=== PATIENT | male | born 1960 | race Caucasian/White ===

== ENCOUNTER → 2023-10-20 07:44 | Outpatient (REF) | payer OTHER, SELFPAY | LOC: RAD 07:44 | PROVIDERS: ATTENDING PHYSICIAN Internal Medicine | DX: R09.89 Other specified symptoms and signs involving the circulatory and respiratory systems (principal) | CPT/HCPCS: 93922; 93925 ==

== ENCOUNTER → 2023-10-22 10:05 | Outpatient (REF) | payer OTHER, SELFPAY ==
[2023-10-22 11:02] LABS: Blood Urea Nitrogen 14 mg/dl (9-20); Calcium 9.8 mg/dl (8.4-10.2); Carbon Dioxide 27 mmol/L (22-30); Chloride 101 mmol/L (98-107); Glucose 98 mg/dl (70-99); Sodium 137 mmol/L (135-145); eGFR > 60.00
[2023-10-22 11:09] LABS: Potassium 4.6 mmol/L (3.5-5.1)
== END ==
LOC: REG 10:05
PROVIDERS: ATTENDING PHYSICIAN Surgery Vascular Surgery; FAMILY PHYSICIAN Internal Medicine
DX: I73.9 Peripheral vascular disease, unspecified (principal)
CPT/HCPCS: 36415; 80048

== ENCOUNTER → 2023-10-26 14:30 | Outpatient (REF) | payer OTHER, SELFPAY | LOC: RAD 14:30 | PROVIDERS: ATTENDING PHYSICIAN Surgery Vascular Surgery; FAMILY PHYSICIAN Internal Medicine | DX: I73.9 Peripheral vascular disease, unspecified (principal) | CPT/HCPCS: 75635; Q9967 ==

== ENCOUNTER 2023-12-30 06:06 | Inpatient (IN) | payer OTHER, SELFPAY ==
--- NOTE | 2023-12-22 12:25 | PTCARENOTE ---
[place] in Dr. Velázquez's office made aware of pt's daily alcohol consumption of 6 beers.
[2023-12-27 09:18] VITALS: BMI 23.7
[2023-12-27 09:54] LABS: % Basophils 0.6 % (0-2); % Eosinophils 3.1 % (0-6); % Immature Granulocytes 0.3 % (0-0.5); % Lymphocytes 25.4 % (20.5-51.1); % Monocytes 5.4 % (1.7-9.3); % Neutrophils 65.2 % (42.2-75.2); Absolute Basophils 0.1 10^3/uL (0-0.2); Absolute Eosinophils 0.3 10^3/uL (0-0.7); Absolute Lymphocytes 2.3 10^3/uL (1.2-3.4); Absolute Monocytes 0.5 10^3/uL (0.1-0.6); Absolute Neutrophils 5.8 10^3/uL (1.4-6.5); Hematocrit 41.6 % (39.0-52.0); Hemoglobin 14.5 g/dL (13.0-18.0); Mean Corp Hgb Conc. 34.9 g/dL (33.0-37.0); Mean Corpuscular Hgb 31.7 pg (27.0-31.0); Mean Corpuscular Volume 90.8 fL (80.0-94.0); Mean Platelet Volume 9.9 fL (7.4-10.4); Nucleated Red Blood Cells % 0 % (-); Platelet Count 328 10^3/uL (130-400); Red Blood Cell Count 4.58 10^6/uL (4.70-6.10); Red Cell Dist. Width 13.5 % (11.5-14.5); White Blood Cell Count 8.9 10^3/uL (4.8-10.8)
[2023-12-27 09:58] LABS: INR 0.89; PT 11.9 Sec (11.4-14.6)
[2023-12-27 09:59] LABS: APTT 31.5 Sec (23.4-35.0)
[2023-12-27 10:44] LABS: Blood Urea Nitrogen 15 mg/dl (9-20); Calcium 9.9 mg/dl (8.4-10.2); Carbon Dioxide 25 mmol/L (22-30); Chloride 103 mmol/L (98-107); Estimated Creatinine Clearance 76 ml/min; Glucose 96 mg/dl (70-99); Potassium 4.6 mmol/L (3.5-5.1); Sodium 137 mmol/L (135-145); eGFR > 60.00
[2023-12-30] VITALS (20 sets, daily range): BP systolic 97–175; BP diastolic 69–123; BMI 24.6
--- NOTE | 2023-12-30 07:01 | PTCARENOTE ---
Dr Soto at pt bedside speaking to pt.
--- NOTE | 2023-12-30 07:02 | W.SUR.PREOP ---
Pre-Operative Surgical Note
-
I have examined this patient prior to the performance of the scheduled procedure.
The patient's condition is unchanged from the time of the current History and
Physical and the patient is able to undergo the scheduled procedure.
[2023-12-30] MEDS: PERIDEX 0.12% ORAL RINSE 15 ML PO (07:15)
[2023-12-30] MEDS: BACTROBAN NASAL 1 GRAM NASAL (07:15)
[2023-12-30 11:09] LABS: ACT-LR - POC 252 Seconds (116-155)
[2023-12-30 12:13] LABS: ACT-LR - POC 192 Seconds (116-155)
[2023-12-30 12:21] LABS: ACT-LR - POC 253 Seconds (116-155)
[2023-12-30 13:13] LABS: ACT-LR - POC 215 Seconds (116-155)
[2023-12-30 14:06] LABS: B.E. - POC -5.6 mmol/L; Glucose - POC 184 mg/dl (65-99); HCO3 - POC 21 mmol/L (21-29); Hematocrit - POC 33 % PCV (42-52); Hemodilution- POC Yes; Hemoglobin Calculated - POC 11.1; Ionized Calcium - POC 1.02 mmol/L (1.12-1.27); Lactate - POC 2.13 mmol/L (0.36-0.75); O2 Saturation %Calculated-POC 99.8 5 (92-96); PCO2 - POC 43 mmHg (35-45); PO2 - POC 243 mmHg (80-100); Potassium - POC 4.9 mmol/L (3.6-5.0); Sodium - POC 135 mmol/L (135-145); pH - POC 7.29 (7.35-7.45)
--- NOTE | 2023-12-30 14:33 | W.SUR.POST ---
Surgical Immediate Post Op
Note
Pre Op Diagnosis: PAD
Post Op Diagnosis: PAD
Procedure Performed: Open Aorto-bifemoral bypass, right femoral endarterectomy with bovine pericardial patch angioplasty
Primary Surgeon: Eber
Secondary Surgeons: Cortez PGY 1
Anesthesia: General
Estimated Blood Loss: 800cc
Fluids: see anesthesia flowsheet
Drains/Shunts: none
Specimens/Cultures: right femoral plaque
Doppler/Duplex/Angio (Y/N): Y
Complications: none
Operative Findings:
[2023-12-30 16:14] LABS: Hematocrit 29.6 % (39.0-52.0); Hemoglobin 10.4 g/dL (13.0-18.0); Mean Corp Hgb Conc. 35.1 g/dL (33.0-37.0); Mean Corpuscular Hgb 32.1 pg (27.0-31.0); Mean Corpuscular Volume 91.4 fL (80.0-94.0); Mean Platelet Volume 9.9 fL (7.4-10.4); Platelet Count 255 10^3/uL (130-400); Red Blood Cell Count 3.24 10^6/uL (4.70-6.10); Red Cell Dist. Width 13.6 % (11.5-14.5); White Blood Cell Count 23.6 10^3/uL (4.8-10.8)
[2023-12-30] MEDS: DILAUDID PCA 30 IV (16:15)
[2023-12-30] MEDS: NSS 1000 IV (16:15)
[2023-12-30 16:27] LABS: APTT 26.5 Sec (23.4-35.0); INR 1.08
[2023-12-30 16:28] LABS: Blood Urea Nitrogen 12 mg/dl (9-20); Carbon Dioxide 17 mmol/L (22-30); Chloride 108 mmol/L (98-107); Estimated Creatinine Clearance 73 ml/min; Glucose 193 mg/dl (70-99); Potassium 4.6 mmol/L (3.5-5.1); Sodium 133 mmol/L (135-145); eGFR > 60.00
[2023-12-30] MEDS: ATIVAN 1 MG IV (16:46)
[2023-12-30] MEDS: NSS 500 IV (16:50)
[2023-12-30 18:02] LABS: Glucose - Point of Care 211 mg/dl (70-99)
--- NOTE | 2023-12-30 18:24 | W.IMMPOSTOP ---
Documented by User: Dmitri Toro MD, Resident 12/30/23 20:06
Surgical Immed Post Op Note
-
Primary Surgeon: Dr. Mic Velázquez MD
Assisting Surgeon: Dr. Dmitri Toro MD, PhD (PGY-1)
Pre-op Diagnosis: occlusive peripheral arterial disease of infrarenal abdominal aorta and iliac arteries
Post-op Diagnosis: occlusive peripheral arterial disease of infrarenal abdominal aorta and iliac arteries
Procedure Performed: Aortobifemoral bypass and right femoral endarterectomy
Anesthesia Type: General
Specimen / Cultures: None
Estimated Blood Loss: 200cc
Complications: None
Operative Findings: The patient was brought to the OR and placed in the supine position. After induction of anesthesia, the patient was prepped and draped in usual sterile fashion. The abdomen was entered and the aorto-iliac bifurcation exposed.
Vessel loops were passed around the abdominal aorta and each of the common iliac arteries. Then incisions were made bilaterally in the groins. Electrocautery and sharp dissection were used to expose the common femoral arteries, profunda femoris
arteries, and SFAs bilaterally. Vessel loops were used to gain proximal and distal control of these vessels. Then we returned to the abdomen and made a transverse incision on the abdominal aorta. The distal stump was oversewn with multiple silk
sutures. Proximally, we performed an end-to-end anastomosis with dacron graft. We then returned to the groins. On the right side, arteriotomy was made in the right common femoral artery to the profunda femoris artery. The vessel was
endarterectomized with a freer. A bovine pericardial patch was brought to the field and a running 7-0 prolene suture was used for arterioplasty. A subcutaneous tissue tunnel was made from the right groin to the retroperitoneum. The distal end of the
aorto-bifemoral graft was passed through the tunnel and into the right groin. The same was performed on the left side. Once the graft ends were situated in each groin, we then performed the distal anastomosis. Starting on the right side, we made an
incision on the patch and beveled the graft. The end-to-side anastomosis was performed using a running 5-0 prolene suture. We then turned our attention to the left groin, where we made an arteriotomy on the left common femoral artery and profunda
femoris artery, beveled the dacron graft, and performed an end-to-side anastomosis. At the completion of this anastomosis, doppler was performed and there were dopplerable signals in the profunda femoris arteries bilaterally distal to the sites of
anastomosis. The abdominal fascia was closed with running suture and tabatha at the skin. Each groin was closed with running suture layers and skin glue. At the conclusion of the case, the patient was transported to the PACU in stable condition.

Documented by User: Mic Velázquez MD 12/31/23 08:43
Surgical Immed Post Op Note
-
Primary Surgeon: Dr. Mic Velázquez MD
Assisting Surgeon: Dr. Dmitri Toro MD, PhD (PGY-1)
Pre-op Diagnosis: occlusive peripheral arterial disease of infrarenal abdominal aorta and iliac arteries
Post-op Diagnosis: occlusive peripheral arterial disease of infrarenal abdominal aorta and iliac arteries
Procedure Performed: Aortobifemoral bypass and right femoral endarterectomy
Anesthesia Type: General
Specimen / Cultures: None
Estimated Blood Loss: 200cc
Complications: None
Operative Findings: The patient was brought to the OR and placed in the supine position. After induction of anesthesia, the patient was prepped and draped in usual sterile fashion. Bilateral groin incision were made initially and sharp dissection
were used to expose the common femoral arteries, profunda femoris arteries, and SFAs bilaterally. Vessel loops were used to gain proximal and distal control of these vess The abdomen was entered and the aorto-iliac bifurcation exposed. Umbilical
tape was passed around the abdominal aorta. The distal stump was oversewn with multiple silk sutures. Proximally, we performed an end-to-end anastomosis with dacron graft. We then returned to the groins. On the right side, arteriotomy was made in
the right common femoral artery to the profunda femoris artery. The vessel was endarterectomized with a freer. A bovine pericardial patch was brought to the field and a running 6-0 prolene suture was used for arterioplasty. A subcutaneous tissue
tunnel was made from the right groin to the retroperitoneum. The distal end of the aorto-bifemoral graft was passed through the tunnel and into the right groin. The same was performed on the left side. Once the graft ends were situated in each
groin, we then performed the distal anastomosis. Starting on the right side, we made an incision on the patch and beveled the graft. The end-to-side anastomosis was performed using a running 5-0 prolene suture. We then turned our attention to the
left groin, where we made an arteriotomy on the left common femoral artery and profunda femoris artery, beveled the dacron graft, and performed an end-to-side anastomosis. At the completion of this anastomosis, doppler was performed and there were
dopplerable signals in the profunda femoris arteries bilaterally distal to the sites of anastomosis. The abdominal fascia was closed with running suture and tabatha at the skin. Each groin was closed with running suture layers and skin glue. At the
conclusion of the case, the patient was transported to the PACU in stable condition.
--- NOTE | 2023-12-30 18:58 | PTCARENOTE ---
Received pt from PACU @ 1735 into rm [id number]. Drowsy, awakens to verbal stimuli. Oriented to self/situation; required reorientation to time. C/O leg cramps, reports improving. Neurovascular checks completed on b/l LE- see flow sheet; pt w baseline
neuropathy in hands/feet. +L DP/PT; +R DP, weak PT. SR/ST on monitor. SpO2 98% on 4LNC. +BS; NPO; L nare NGT to LIS w small amt brown output. Lee in place w clear/yellow urine. B/L groin aquacell dressing c/d/i. Midline ABD incision w scant
drainage. L rad A-line transduced, monitored, and calibrated; all ports patent and secured; correlates w cuff pressures. Dilaudid RN UROLOGY in place via L arm PIV- see flow sheet. Family @ bedside updated. Instructed on how to report care concerns,
call hernández in reach.
--- NOTE | 2023-12-30 20:00 | PTCARENOTE ---
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 SR HR 90s. Sat 98% on 4LNC. L NGT to LIWS, minimal drainage. Lee catheter draining adequate amt yellow urine. 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 L rad AL WNL.
call hernández with pt, bed alarm on.
[2023-12-30] MEDS: OFIRMEV 100 IV (20:29)
[2023-12-30] MEDS: HEPARIN 5000 UNITS SC (20:29)
[2023-12-30] MEDS: THIAMINE INJECTION 200 MG IV (20:30)
[2023-12-30] MEDS: VANCOCIN 200 IV (20:30)
[2023-12-30 21:09] LABS: Lactic Acid 0.8 mmol/L (0.7-2.0)
[2023-12-30 23:31] LABS: Glucose - Point of Care 193 mg/dl (70-99)
[2023-12-31] VITALS (15 sets, daily range): BP systolic 128–169; BP diastolic 71–105; BMI 26.0
[2023-12-31] MEDS: NSS 1000 IV ×3 (02:12→19:59)
[2023-12-31] MEDS: HEPARIN 5000 UNITS SC ×3 (02:12→15:44)
[2023-12-31] MEDS: OFIRMEV 100 IV ×3 (02:12→15:44)
--- NOTE | 2023-12-31 03:00 | PTCARENOTE ---
no changes in pt assessment.
[2023-12-31 05:38] LABS: Hematocrit 25.7 % (39.0-52.0); Hemoglobin 9.2 g/dL (13.0-18.0); Mean Corp Hgb Conc. 35.8 g/dL (33.0-37.0); Mean Corpuscular Hgb 32.5 pg (27.0-31.0); Mean Corpuscular Volume 90.8 fL (80.0-94.0); Mean Platelet Volume 9.7 fL (7.4-10.4); Platelet Count 216 10^3/uL (130-400); Red Blood Cell Count 2.83 10^6/uL (4.70-6.10); Red Cell Dist. Width 13.6 % (11.5-14.5)
[2023-12-31 05:50] LABS: APTT 30.6 Sec (23.4-35.0); INR 1.01; PT 13.3 Sec (11.4-14.6)
[2023-12-31 06:01] LABS: Blood Urea Nitrogen 12 mg/dl (9-20); Calcium 7.5 mg/dl (8.4-10.2); Carbon Dioxide 23 mmol/L (22-30); Chloride 110 mmol/L (98-107); Estimated Creatinine Clearance 73 ml/min; Glucose 133 mg/dl (70-99); Potassium 4.6 mmol/L (3.5-5.1); Sodium 135 mmol/L (135-145); eGFR > 60.00
[2023-12-31 06:17] LABS: Glucose - Point of Care 147 mg/dl (70-99)
--- NOTE | 2023-12-31 08:00 | PTCARENOTE ---
0700 patient in bed. left radial A/line. Indwelling Lee draining clear yellow urine. B/L Groin and midline abdominal incision intact and dry. Pulses present via doppler
[2023-12-31] MEDS: THIAMINE INJECTION 200 MG IV ×2 (08:05→19:25)
[2023-12-31] MEDS: PROTONIX IV 40 MG IV (08:06)
[2023-12-31] MEDS: NSS (PRESERVATIVE FREE) 10 ML IV (08:06)
--- NOTE | 2023-12-31 08:41 | OR.RPT ---
Operative Report
Operative Report
PROCEDURE DATE: 12/30/2023
Preoperative diagnosis: Chronic limb threatening ischemia with severe multilevel peripheral arterial disease bilateral (left greater than right) lower extremities.
Postoperative diagnosis: Same
Procedure:
1. Aortobifemoral artery bypass with 16 mm x 8 mm bifurcated Hemashield Dacron graft.
2. Extensive right femoral endarterectomy (distal common femoral artery, long segment profunda femoris artery) with bovine pericardial patch angioplasty/profundoplasty.
Surgeon: Eber
Acupuncturist: Dmitri Toro, PGY 2
Complications: None
Anesthesia: General
Indications for procedure:
Severe peripheral arterial disease, multilevel including aorta/iliac artery occlusive disease. Brought for inflow procedure with aortobifemoral artery bypass. Risk/benefits/alternatives all extensively discussed. Patient understood all wish to
proceed.
Description of procedure:
Patient was identified brought to the operating room placed on the table in supine position. After the adequate administration of anesthesia he was prepped and draped in the standard surgical fashion. A standard preoperative timeout was undertaken
and everybody was in agreement the plan. A standard longitudinal incision was made in the right groin that was carried through the skin subcutaneous tissue. The common femoral artery was identified as it emerged from underneath the inguinal
ligament. It was noted to be significantly calcified and hardened. I dissected to the femoral bifurcation carefully dissecting away from surrounding structures and great care to avoid any injury to the structures. The proximal superficial femoral
artery couple centimeters beyond its origin was circumferentially dissected and a vessel loop passed around it. It was noted to be chronically heavily calcified. The profunda femoris artery origin was identified. I then continued dissection on
the profunda as there was a moderate amount of atherosclerotic plaque correlating to CT scan findings. I had to dissect the profunda and branches down to the level about 7 to 8 cm beyond the origin of the profunda. There I was able to identify
soft spot and carefully circumferentially dissected and confirmed the vessel was soft against my right ankle clamp. Of note any crossing veins were ligated between silk ties and clips and divided. All branches were also controlled with Vesseloops
as well. I then dissected underneath the inguinal ligament proximally and initiated a retroperitoneal tunnel from this groin incision. Of note I did not identify any circumflex iliac vein or vein of sorrow.
Similar incision was made in the left groin that was carried through skin subcutaneous tissue. Similar dissection was undertaken identifying the common femoral artery as it emerged from underneath inguinal ligament. I dissected to the bifurcation
of the femoral vessels. As noted on the other side there was heavily calcified arteries. There was a soft spot at the distal common femoral artery that I felt would be safe for clamping. The profunda femoris artery was soft a few centimeters
beyond the origin (about 2 cm). This was at the first branch point. Both branches were controlled with Vesseloops carefully. Any crossing veins were ligated between silk ties and divided to allow better exposure of the profunda here. Similarly I
dissected underneath the inguinal ligament to initiate a retroperitoneal tunnel. Again as with the other side I did not identify the circumflex iliac vein or vein of sorrow.
At this point I made a standard midline laparotomy abdominal incision. This was carried through skin subcutaneous tissue down to the level of the midline fascia. The fascia was incised. I then grasped the peritoneum and sharply incised it with a
Metzenbaum scissor. I carefully entered the peritoneal cavity. The entirety of the midline fascia and peritoneum was then safely opened. Care was taken to ensure no bowel swept up against the abdominal wall. There were no adhesions noted. Upon
entry into the abdomen I noted that there was 1 small small bowel apparent electrocautery serosal possible injury. I could not tell for sure. There was no full-thickness injury was just the serosa superficially. To be safe silk suture was used to
imbricate the serosa on either side using 3 interrupted silk sutures. (Note I did consult one of my general surgery colleagues who came to the operating room, and confirmed the plan of action). A [place] retractor was then placed and the duodenum
was sharply mobilized off of the retroperitoneum. Notes the course of the duodenum because it to sweep over the aorta to the left of midline and then back around. Therefore retracting the bowel proved to be somewhat difficult as a result. Once I
did mobilize the duodenum I then exchanged out for an Omni retractor system. I placed this in place. I then began dissecting the retroperitoneum overlying the aorta directly. The aorta is noted to be severely calcified and hardened. But
proximally I dissected to the level of the renal vein. Around that level the aorta was soft and clamp level with a good pulsation. I identified the renal vein as well as the left accessory renal artery which was the lowest of the renal arteries
noted. Therefore I carefully circumferentially dissected the aorta here and passed an umbilical tape around it. Just distal to the site I circumferentially dissected and there was a lumbar artery I could see easily. Care was taken to avoid any
injury to this. Next I dissected more distally on the aorta to the aortic bifurcation. Of note the ALEJANDRA was identified and carefully circumferentially dissected and a vessel loop passed around it to allow gentle retraction. The aorta in the
vicinity of the ALEJANDRA was severely hard and calcified. At this point I bluntly extended my retroperitoneal tunnel from the abdominal site and connected it to the groin incisions and passed the aortic clamp along the tunnel and passed an umbilical
tape through first on the right side than on the left side. As such now I completed my aortic tunneling. I circumferentially dissected the aorta distally just proximal to the bifurcation to allow clamp placement here, and I had also dissected the
aorta more proximally to allow clamp placement proximal to the ALEJANDRA also if needed. I then gave the patient 6000 units of intravenous heparin. While heparin was circulating I assessed my ability to clamp the aorta. My initial hope was to place a
side-biting clamp on the aorta so as to perform an end to side anastomosis to maintain antegrade flow into the ALEJANDRA (I had some concern that the patient had SMA stenosis based on CT scan imaging preoperatively and I was concerned about ligating the
ALEJANDRA). Placing a side-biting clamp was not ideal due to the severe calcification and hardness of the aorta in the mid infrarenal aorta. Did not allow me a lot of room for a side-biting clamp. In addition the side-biting clamp was not completely
occluding the vessel proximally and therefore I would have to place an additional proximal clamp. Based on all this I felt that I would need to instead do an end to side anastomosis especially based on the severe calcific plaque more distally in
the aorta. Therefore I placed a Derra type clamp on the proximal infrarenal aorta. Distally I clamped just proximal to the ALEJANDRA. I then transected the aorta. I cut out a small/short segment of the aorta. My clamp distally was not hemostatic
unfortunately. Therefore I clamped more distal to the ALEJANDRA where I had created a zone. I also then double looped and tightened my Vesseloops on the ALEJANDRA. This seemed to slow things better but still not perfectly. At this point, due to the severe
atherosclerotic plaque in the vicinity ALEJANDRA, I felt that I could not really preserve this and oversew the aorta safely here. Therefore I ligated the ALEJANDRA and then placed several silk sutures as best I could to get through the plaque to oversew the
distal infrarenal aorta. In addition I placed some Prolene sutures. I could not completely run a suture line through it due to the hardness of the plaque but was able to run partially and do interrupted [id number] type sutures enough to
oversew it. Next I examined my proximal sewing ring. There was some plaque in the distalmost aspect so I had to trim the ring back further (more cephalad). Until I had a clean ring now. Now I brought my graft into place which is 16 mm x 8 mm
bifurcated dacron graft. I trimmed the graft so that there was only a short main body before the bifurcation and so that the crotch of the graft would splay the distal oversewn aortic stump. An end-to-end anastomosis was then fashioned using a
running 3-0 Prolene suture. I completed and tied down my suture line. I clamped the graft limbs. I then released my proximal clamp. There was a bleeder on the anterior aspect of the suture line due to a small tear that had occurred in the aortic
wall just proximal to the suture line (likely the tension of the suture pulled the aortic wall. I therefore then placed a [id number] type suture from the graft to the wall more proximal to the hole and then I used a pledgeted suture to the
cover this and then tied down. Once I did this I was completely hemostatic. I confirmed hemostasis along the posterior suture line. Next, I passed my graft limbs through the tunnels.
Now I turned my attention initially to the right groin. The common femoral artery was clamped. The profunda Vesseloops on the distal 2 branches were tightened. The SFA vessel loop was double looped and tightened. I made an arteriotomy with an 11
blade on the profunda where it was soft distally and extended it proximally with a Powers scissor. I extended back onto the distal common femoral artery. There was diffuse plaque (calcified/hardened as well as just thickened intima/soft plaque). I
used a Kell to perform an extensive endarterectomy. I was able to endarterectomized the plaque out cleanly in the profunda. Distally I feathered out the plaque anteriorly and medially/laterally. Posteriorly there was still some
thickening/plaque. I gently slid my finger down distally and I could feel that the artery was slightly hard and throughout. Therefore I did not feel that there was a better endpoint here. I reviewed the CT scan as well again. At this point, I
was able to endarterectomized the plaque in the common femoral artery just beyond the arteriotomy. There was still some residual posterior plaque there but it was in the direction of flow and it was well adherent. Therefore I felt that this was a
reasonable endpoint. The SFA I everted a little bit of plaque out of the origin, but it was heavily calcified and heavy plaque laden that I will not planning on doing an extensive endarterectomy here. At this point I then carefully removed any
fine debris throughout the endarterectomy site with fine forceps. There was slight thinning of 1 portion of the profunda wall but it looked viable. However just to be safe I used interrupted 7-0 Prolene sutures to imbricate the posterior wall on
either side with healthier intima on either side. Once I completed this I then used a long bovine pericardial patch to sew patch angioplasty using a running 6-0 Prolene suture. I completed and tied down the suture line. I briefly backbled the
branches and then reclamped them. Next I made a graftotomy on the mid graft with an 11 blade and extended using a Powers scissor. I now beveled the dacryon graft and sewed an end to side anastomosis with a running 5-0 Prolene suture. Prior to
completing and tying to my suture I backbled all artery branches and flushed out the graft. I then completed and tied down my suture line after instilling heparinized saline. I then released flow in the branches and the graft. There was good
pulsatile flow into the graft and the patch profunda. There was an excellent Doppler signal distal to the patch on the profunda. I could palpate a pulse in the profunda distal to the patch as well. At this point I was very satisfied. I had to
place a couple 6-0 Prolene [id number] sutures along the patch along a couple bleeding sites. Hemostasis was fully achieved. This groin was packed and then I turned my attention to the left groin.
On this side I could palpate the profunda was nice and soft more distally as noted. Due to the heavy calcific nature at the origin of the SFA based on CT scan imaging and proximal common femoral disease, in lieu of performing extensive
endarterectomy, I elected to sew into the profunda directly with my graft. Therefore I made an arteriotomy with an 11 blade after clamping the vessels on the profunda where it was soft. I extended it cephalad with a Powers scissor. The profunda
was soft and normal where I made my arteriotomy, but more proximally there was slight thickening posteriorly in the wall. However I did not feel this warranted an endarterectomy as I was establishing flow into the more distal profunda and the syed
of the graft would patch this open anyway. At this point I beveled the graft and sewed an end to side anastomosis onto the profunda using a running 5-0 Prolene suture. Prior to completing and tying down my suture line I backbled each branch, I
then instilled heparinized saline and completed and tied down my suture line. Next I released flow in the nulato systems and in the graft. There is excellent pulsatile flow into the profunda. Excellent Doppler signal distal to the anastomosis was
confirmed as well (there was a good pulse in the profunda as well). Hemostasis was noted. At this point I was very satisfied. I then packed this groin as well and turned back to the abdominal site. The proximal anastomosis was again exposed.
There was some oozing in this site. I carefully exposed everything and it appeared that there was some slight oozing from the distal oversewn stump still. However it was not briskly bleeding. In addition there was a single point on the lateral
aspect of the suture line that had not been bleeding prior (a proximal anastomotic suture line) that was bleeding. I was able to place a [id number] 4-0 Prolene suture here and achieve full hemostasis. I then was able to extensively oversew
the distal stump again using multiple interrupted silk suture. As such I was able to achieve full hemostasis. At this point is very satisfied. I then gave protamine to reverse the heparin. I carefully examined the abdominal cavity and the
surgical sites and noted full hemostasis. And then irrigated copiously. I did not have much retroperitoneal tissue to close over the graft but what ever I did I was able to do so using interrupted Vicryl suture. Once I completed that I examined
the bowels again. The prior serosal injury site appeared to be stable and well. The remainder of the colon/large intestine was examined all the way down to the level of the rectum. The bowel all appeared healthy. I did palpate an SMA pulse which
told me that despite the stenosis there is enough flow in the SMA. Therefore at this point I did not feel that there was any reason to reimplant or revascularize the ALEJANDRA. As it had been sometime since I had ligated it. Therefore at this point the
NG tube positioning was confirmed. The small bowel was returned to its normal position as was the omentum. I then closed the abdominal midline fascia using #1 PDS running suture. Skin tabatha were used to close the skin.
Next both groin incisions were carefully inspected. Hemostasis was again confirmed. I vigorously irrigated. I then closed in layers using 2-0 Vicryl, 3-0 Vicryl, 4-0 Monocryl subcuticular stitch. Dermabond was applied to both groin sites.
Dressings were applied throughout. The patient tolerated the procedure well.
--- NOTE | 2023-12-31 08:44 | W.PN.VS ---
Addendum entered and electronically signed by Mic Velázquez MD 12/31/23 10:02:
Seen and examined with DIALYSIS SOCIAL WORKER Castillo and MERRY Gomez. Agree with findings as noted below. Patient actually is without significant major complaints this morning. Abdominal incisional pain is well-controlled. Denies any leg pain currently. Had some
cramping in the left calf postoperatively but resolved. Vital signs/I's and O's reviewed and as charted. Urine output good. NG tube drainage minimal. On exam he is awake and alert. No acute distress. Breathing is unlabored. Abdomen is soft.
Mild expected incisional tenderness. Dressing is clean dry and intact. Groin dressings clean dry and intact bilaterally. Palpable femoral pulses bilaterally. No hematomas in the groins. Feet are both warm. No rubor, no ulcerations. Left side
with dopplerable PT and DP signals. Right side very faint. Motor/sensory fully intact. Plan/as discussed and noted below.
Original Note:
Today's Communication / Plan
-
Patient seen and examined at bedside with attending Dr. Mic Velázquez, below plan reviewed with attending.
Assessment/Plan
-
Assessment: 63 year old male POD #1 Aortobifemoral bypass and right femoral endarterectomy
Plan:
Discontinue arterial line
Continue NGT
Continue manzo catheter and strict I&O
Encourage incentive spirometry
Continue NPO, but ok to for ice chips and mouth swabs
Subjective Data
-
Date of Service: December 31, 2023
Patient seen and examined at bedside, reports well managed post operative pain. Denies nausea, vomiting, fever, and chills.
Objective Data
-
Vital Signs
Temp Pulse Resp BP Pulse Ox
98.3 F 89 15 143/79 99
12/31/23 07:26 12/31/23 06:15 12/31/23 06:15 12/31/23 01:46 12/31/23 06:15
Intake and Output
12/30/23 12/31/23 01/01/24
06:59 06:59 06:59
Intake Total 1641 / 1641
Output Total 1695 / 1845 150 / 150
Balance -54 / -204 -150 / -150
Intake:
IV fluids (Total) 1621 / 1621
Dilaudid TICKET COUNTER
Nss 1,000 ml @ 110 mls/hr IV . 1320 / 1320
Q9H6M [facility] Rx#:[id number]
nss bolus 300 / 300
Amount instilled into GI Tube (
Total)
[place] Sump
Output:
Gastrointestinal tube output (
Total)
[place] Sump
Urine, Manzo 1275 / 1425 150 / 150
Urine, Voided 400 / 400
Lab Results
12/31/23 05:23
12/31/23 05:23
Calcium 7.5 mg/dl (8.4-10.2) L 12/31/23 05:23
Physical Exam
-
AAOx3, NAD
RRR, no tachycardia
No dyspnea on room air
NGT with bilious minimal output, midline ABD surgical dressing CDI, ABD soft, scantly tender around midline incision, non-distended
BL groin dressing CDI, no hematoma, all surrounding compartments soft
BL feet warm, BL PT by doppler, Left DP by doppler
--- NOTE | 2023-12-31 10:58 | PTCARENOTE ---
left radial A/line Removed. 4x4 secured with tape applied.
--- NOTE | 2023-12-31 11:18 | CON.INTV ---
Consultation
Consultation Request
Date/Time Consultation Requested: 12/31/2023
Date/Time Consultation Performed: 12/31/2023
Requesting Provider: Dr. Velázquez
Performing Provider: Dr. Antolin Mustafa
Reason for Consultation: Status post aortobifemoral bypass
Medical History
-
History of Present Illness:
63-year-old man with history of peripheral arterial disease, hypertension, degenerative disc disease, seen in the outpatient by vascular surgery found to have symptomatic peripheral arterial disease.
He was admitted for revascularization. He underwent aortobifemoral artery bypass on 12/31/2023 without complications.
Currently the critical care unit for critical care
Denies any significant pain.
Denies shortness of breath
Hemodynamically stable overnight.
Peripheral lower extremity pulses present
Past Medical History
Past Medical History: Other (See assessment and plan)
Social History
Tobacco: Smoker (15 cigarettes a day for 40 years)
Alcohol: Daily
Drug: None
Living: With Family
Family History
Family History: Reviewed & Not Pertinent
Allergies / Home Medications
Allergies
Allergy/AdvReac Type Severity Reaction Status Date / Time
No Known Allergies Allergy Verified 12/30/23 06:30
Home Medications
�Medication �Instructions �Recorded �Confirmed �Last Taken �Type
aspirin 81 mg capsule 81 mg PO QPM 12/22/23 12/30/23 12/29/23 16:00 History
atorvastatin 20 mg tablet 20 mg PO QPM 12/22/23 12/30/23 12/29/23 16:00 History
valsartan 160 mg tablet 160 mg PO QPM 12/22/23 12/30/23 12/29/23 16:00 History
amlodipine 5 mg tablet 5 mg PO QPM 12/30/23 12/30/23 12/29/23 16:00 History
pregabalin 150 mg capsule (Lyrica) 150 mg PO DAILYPRN PRN pain 12/30/23 12/30/23 12/29/23 14:00 History
sildenafil 100 mg tablet (Viagra) 100 mg PO DAILY PRN as needed 12/30/23 12/30/23 12/29/23 17:00 History
Review of Systems
-
History Source: Patient
All other systems: Negative unless noted
Vitals / Labs / Diagnostic Testing
Vital Signs
Temp Pulse Resp BP Pulse Ox
98.3 F 86 12 169/82 97
12/31/23 11:00 12/31/23 10:45 12/31/23 10:45 12/31/23 08:09 12/31/23 10:45
Lab Data
12/31/23 05:23
12/31/23 05:23
Laboratory Results
12/30/23 12/31/23
15:40 05:23
PT 14.0 13.3
INR 1.08 1.01
APTT 26.5 30.6
Microbiology
12/27/23 09:27 Nose MRSA Screen - Final
Staph aureus MRSA
Diagnostic Testing:
Physical Exam
-
HEENT: Normocephalic
Cardiovascular: S1/S2
Respiratory: Clear and Non-Labored Respirations
GI: Soft and Non Distended
Neurology: Awake, Alert and Oriented
Skin: Warm
General: Respiratory Distress (n)
Assessment
-
-
IMPRESSION: This is a 63 year old male patient scheduled for aortobifemoral bypass surgery with Dr. Velázquez for chronic limb threatening ischemia with severe multilevel peripheral arterial disease bilateral (left greater than right) lower extremities.
Status post bifemoral aortic bifemoral bypass due to severe peripheral occlusive arterial disease.
Conditions AMBULANCE DRIVER:
HTN
central cord syndrome
PAD
Current Tobacco Use
PLAN:
-
- #Severe multilevel PAD
-post op day #1
-Doing well overnight.
Vascular correspondence and operative reports reviewed.
Continue neurovascular checks per protocol every hour
Not on vasopressors
-cotinue NGT and manzo
-Continue NPO as per vascular-okay for ice chips
-continue pain management
-continue IV fluids
-Arterial line will be discontinued
-Continue analgesia with narcotics-watch respiratory status closely
-
IV fluids
Follow renal function and urinary output. Currently normal
-
Smoking cessation: Nicotine patch.
-
Monitor for alcohol withdrawal, MSAS protocol.
-
Emphysema on CT of the abdomen pelvis: Possible COPD given ongoing smoking.
Would benefit from outpatient pulmonary evaluation at some point. May qualify for lung cancer screening.
-
Possible BPH by CAT scan. Monitor for urinary retention.
-
DVT prophylaxis with subcu heparin
-
Will remain in ICU level of care until tomorrow per protocol.
[2023-12-31] MEDS: NICODERM TRANSDERMAL 14 MG TRANSDERM (11:33)
[2023-12-31 11:54] LABS: Glucose - Point of Care 131 mg/dl (70-99)
--- NOTE | 2023-12-31 12:27 | PTCARENOTE ---
Patient transfer to chair one person assist. Able to use LEAD PORTFOLIO MANAGER appropriately. NPO with few ice chips occasional. A/line d/c earlier today. Indwelling Lee performed per hospital's protocol draining clear yellow urine about 50 hr. B/L LE pulses
present via doppler. n/J tube to lower intermittent suctioning. Oral care self perfomed IS encouraged call hernández and LEAD PORTFOLIO MANAGER within reach
--- NOTE | 2023-12-31 12:37 | CM ---
CM following re: discharge planning.
Reviewed pt's chart, met with pt.
Pt is a 63 year old male, admitted with primary dx of POD #1 Aortobifemoral bypass and right femoral endarterectomy.
Pt reports he lives with spouse 2SH, 2 steps to enter, has 3 children. 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 Pt was not happy to participate in the interview, admitted to h/o alcohol abuse, wasnot happy to
talk about is and agrees to meet with [facility] team. A referral to [facility] made.
PCP: Shaun Saleh
Pharmacy: [facility]
D/C plan: home with anticipated no needs. [facility] to follow
CM will follow with discharge plan updates as hospitalization progresses
--- NOTE | 2023-12-31 15:24 | W.PN.UPDATE ---
Update Note
Progress Note Update
NGT removed, patient tolerated. Maintain NPO.
[2023-12-31 18:23] LABS: Glucose - Point of Care 142 mg/dl (70-99)
--- NOTE | 2023-12-31 18:38 | PTCARENOTE ---
patient in bed AAO x3 MSAS 0 ; N-J tube d/c earlier . Patient NPO with Ice chips . Denies nausea no vomiting. SR 945; BP 139/77 MAp 95 . POX 97/2L; Abdomen tender non-distended. HYpoactive Bowel sounds.
--- NOTE | 2023-12-31 19:45 | PTCARENOTE ---
Received patient at 1900. Pt. currently in bed. Awake, alert, and oriented. Denies pain/discomfort. Neurovascular checks performed with prior RN. Neurovascular checks normal. Afebrile. Heart rhythm sinus. Currently on nasal cannula. Lungs sound
coarse. NPO with ice chips. Lee catheter in place, draining without issue. Skin as documented. Discussed plan of care with patient. Vital signs stable at this time.
[2023-12-31] MEDS: ATIVAN 1 MG IV (22:50)
[2024-01-01] VITALS (21 sets, daily range): BP systolic 110–165; BP diastolic 51–108; BMI 25.8
[2024-01-01] MEDS: HEPARIN 5000 UNITS SC ×3 (00:03→15:16)
[2024-01-01 00:09] LABS: Glucose - Point of Care 137 mg/dl (70-99)
--- NOTE | 2024-01-01 00:30 | PTCARENOTE ---
Pt. assessment unchanged. Neurovascular checks are normal. Patient using PROFESSOR OF MEDICINE dilaudid when needed. Vital signs stable at this time.
[2024-01-01] MEDS: APRESOLINE 5 MG IV (01:16)
[2024-01-01] MEDS: ATIVAN 2 MG IV ×11 (02:25→22:14)
[2024-01-01] MEDS: NSS 1000 IV (02:25)
[2024-01-01] MEDS: PRECEDEX 100 IV ×6 (03:42→23:12)
[2024-01-01 03:52] LABS: Hematocrit 25.1 % (39.0-52.0); Hemoglobin 8.6 g/dL (13.0-18.0); Mean Corp Hgb Conc. 34.3 g/dL (33.0-37.0); Mean Corpuscular Hgb 32.6 pg (27.0-31.0); Mean Corpuscular Volume 95.1 fL (80.0-94.0); Mean Platelet Volume 9.9 fL (7.4-10.4); Platelet Count 209 10^3/uL (130-400); Red Blood Cell Count 2.64 10^6/uL (4.70-6.10); White Blood Cell Count 17.8 10^3/uL (4.8-10.8)
[2024-01-01 04:19] LABS: Blood Urea Nitrogen 10 mg/dl (9-20); Calcium 8.3 mg/dl (8.4-10.2); Carbon Dioxide 22 mmol/L (22-30); Chloride 114 mmol/L (98-107); Estimated Creatinine Clearance 82 ml/min; Glucose 136 mg/dl (70-99); Potassium 4.2 mmol/L (3.5-5.1); Sodium 141 mmol/L (135-145); eGFR > 60.00
--- NOTE | 2024-01-01 04:45 | PTCARENOTE ---
Pt. MSAS score increasing throughout the night. Score as high as 15. Multiple attempts to reorient patient. Pt. attempting to climb out of bed. IV Ativan given per MSAS, see MAR. Pt. continues with attempts to get out of bed, also pulling at lines
and tubes. Precedex gtt started. Restraints also applied per order. AM labs drawn. Vital signs stable at this time.
[2024-01-01] MEDS: NICODERM TRANSDERMAL 14 MG TRANSDERM (07:51)
[2024-01-01] MEDS: THIAMINE INJECTION 200 MG IV ×2 (07:53→21:02)
[2024-01-01] MEDS: NSS (PRESERVATIVE FREE) 10 ML IV (07:53)
[2024-01-01] MEDS: PROTONIX IV 40 MG IV (07:53)
--- NOTE | 2024-01-01 08:04 | PTCARENOTE ---
patient received in bed disoriented, restless, agitated, in 2 point soft wrist Restraints. Indwelling Lee draining christopher clear urine. Precedex at 1mcg via RT FA # 18 NSS 110 and HYDRAULIC CONTROLS TECHNICIAN via Left AC.
BP via left upper arm 145/[address] 153; core temp 100.7; RR 20 POX 97/2L. MSAS 18-20; RASS Combative 4 or Restless 3; Attempting to get out of bed. Restraints changed from 2 points to 4 points Wrist soft with 4 side rails. Precedex adjusted per
protocol at this time at max 1.5 mcg. Ativan 2 mcg adm per prn MSAS order., Lee draining christopher clear urine Abdominal midline and b/l groin incision no drainage noted soft to touch. pulses present via doppler
--- NOTE | 2024-01-01 10:08 | W.PN.INTV ---
Today's Communication / Plan
Recommendations
Continue Precedex drip
Ativan as needed
Discontinue Dilaudid TIRE STRIPPER-unable to use due to poor mental status
IV Tylenol for analgesia for now
Minimize narcotics if able
IV fluids
Aspiration precautions
Assessment
-
-
IMPRESSION: This is a 63 year old male patient scheduled for aortobifemoral bypass surgery with Dr. Velázquez for chronic limb threatening ischemia with severe multilevel peripheral arterial disease bilateral (left greater than right) lower extremities.
Status post bifemoral aortic bifemoral bypass due to severe peripheral occlusive arterial disease.
Alcohol withdrawal
Conditions CLASSIFICATION CLERK:
HTN
central cord syndrome
PAD
Current Tobacco Use
PLAN:
-
- #Severe multilevel PAD
-post op day #2
-Developed delirium overnight-alcohol withdrawal.
Vascular correspondence and operative reports reviewed.
Continue neurovascular checks per protocol every hour
Hemodynamically stable.
-Continue NPO as per vascular-okay for ice chips
NG tube has been discontinued
Continue maintenance IV fluids
Lee in place with clear urine
-
Discontinue Dilaudid TIRE STRIPPER-due to delirium patient unable to use
Start IV Tylenol as needed
Will try to minimize narcotic if possible.
Monitor respiratory status closely.
-
Alcohol withdrawal.
Precedex drip-will titrate based on agitation scale
Ativan per protocol
Daily electrolytes.
-
Smoking cessation: Nicotine patch.
-
Emphysema on CT of the abdomen pelvis: Possible COPD given ongoing smoking.
Would benefit from outpatient pulmonary evaluation at some point. May qualify for lung cancer screening.
-
Possible BPH by CAT scan. Monitor for urinary retention.
-
DVT prophylaxis with subcu heparin
-
Critical care statement: A total of 31 minutes of critical care time was provided for this patient today. This includes management of unstable vital signs, evaluation of the patient at bedside, reviewing the patient's pertinent medical records
including radiographs, microbiology, laboratory evaluations and discussion with primary team, critical care nursing, and respiratory therapy.
Subjective Dataa
Subjective Data
Date of Service:
Date of Service: January 01, 2024
Chief Complaint: Track Laying Supervisor Follow Up (Status post aortic bifemoral bypass.)
Subjective:
Events from overnight noted.
Developed delirium-alcohol withdrawal.
Requiring Ativan IV.
Requiring Precedex drip due to agitation
Hemodynamically stable
Unable to provide history.
Objective Data
Data Reviewed
Vital Signs / I&O / Oxygen:
Vital Signs
Temp Pulse Resp BP Pulse Ox
100.7 F H 110 20 114/56 98
01/01/24 08:10 01/01/24 08:00 01/01/24 08:00 01/01/24 08:00 01/01/24 08:00
Intake and Output
12/31/23 01/01/24 01/02/24
06:59 06:59 06:59
Intake Total 1641 / 1751 2673.9 / 2808.5 270.9 / 270.9
Output Total 1695 / 1845 1850 / 2100 310 / 310
Balance -54 / -94 823.9 / 708.5 -39.1 / -39.1
SaO2 98
Nasal Cannula flow liters per 2
minute
Physical Exam
General: Fever (negative) and Chills (negative)
HEENT: Normocephalic
Cardiovascular: S1-S2 and Regular Rhythm
GI: Soft, Non Distended and Other (midline abdominal dressing- no hematoma)
Neurology: Other (Currently somnolent on Precedex drip.)
Skin: Warm
Labs/Micro/Reports
Lab Data
01/01/24 03:37
01/01/24 03:37
[2024-01-01 10:48] LABS: Magnesium 2.2 mg/dl (1.6-2.3)
--- NOTE | 2024-01-01 11:09 | W.PN.VS ---
Today's Communication / Plan
-
Plan:
[facility]WA
Fever and WBC presumably from withdrawal - trend and if persists then panculture and CXR
Recommend CT head for change in mental status
Assessment/Plan
-
Assessment: 63 year old male POD #2 Aortobifemoral bypass and right femoral endarterectomy
Plan:
CIWA
Fever and WBC presumably from withdrawal - trend and if persists then panculture and CXR
Recommend CT head for change in mental status
Subjective Data
-
Date of Service: January 01, 2024
POD 2 ABF
Patient disoriented and not answering questions
Being treated as withdrawal given significant alcohol history
Unable to answer questions regarding lower extremity pain/numnbess or abdominal pain
No diarrhea
WBC increased slightly to 17
Febrile
Tachycardic
Objective Data
-
Vital Signs
Temp Pulse Resp BP Pulse Ox
100.7 F H 110 20 114/56 98
01/01/24 08:10 01/01/24 08:00 01/01/24 08:00 01/01/24 08:00 01/01/24 08:00
Intake and Output
12/31/23 01/01/24 01/02/24
06:59 06:59 06:59
Intake Total 1641 / 1751 2673.9 / 2808.5 490.9 / 490.9
Output Total 1695 / 1845 1850 / 2100 560 / 560
Balance -54 / -94 823.9 / 708.5 -69.1 / -69.1
Intake:
IV fluids (Total) 1621 / 1731 2673.9 / 2808.5 490.9 / 490.9
Dilaudid FREIGHT RATE ANALYST 1 / 1 2.2 / 2.2
Nss 1,000 ml @ 110 mls/hr IV . 1320 / 1430 2640 / 2750 440 / 440
Q9H6M [facility] Rx#:[id number]
Precedex 31.7 / 56.3 50.9 / 50.9
nss bolus 300 / 300
Amount instilled into GI Tube (
Total)
[place] Sump
Output:
Gastrointestinal tube output ( 100 / 100
Total)
[place] Sump 100 / 100
Urine, Lee 1275 / 1425 1750 / 1999 560 / 560
Urine, Voided 400 / 400
Lab Results
01/01/24 03:37
01/01/24 03:37
Calcium 8.3 mg/dl (8.4-10.2) L 01/01/24 03:37
Magnesium 2.2 mg/dl (1.6-2.3) 01/01/24 03:37
Physical Exam
-
Abdomen soft, nondistended
abdominal incision intact with no erythema or drainage
small serous drainage from proximal right groin incision, remainder of incision intact without erythema or hematoma
Left groin incision CDI
Unable to do pulse exam given agitation and thrashing
[2024-01-01] MEDS: D5/0.45%NSS with KCL 10 MEQ 1000 IV (11:41)
[2024-01-01] MEDS: OFIRMEV 100 IV (12:03)
--- NOTE | 2024-01-01 13:05 | W.PN.UPDATE ---
Update Note
Progress Note Update
Patient agitated, confused. Occasionally following commands.
Restless in bed.
Agitation despite Precedex/Ativan.
Will give 2 mg of Haldol now.
Lets give additional IV Ativan.
Unlikely to cooperate for CT head. Currently he is moving 4 extremities.
If unable to control behavior may need to consider phenobarbital
[2024-01-01] MEDS: HALDOL 2 MG IV (13:16)
[2024-01-01] MEDS: NSS (PRESERVATIVE FREE) 0.5 ML IV (13:18)
[2024-01-01] MEDS: ATIVAN 1 MG IV ×3 (13:19→21:05)
--- NOTE | 2024-01-01 13:44 | PTCARENOTE ---
patient in bed MSAS 16 RASS +3 confused restless agitated. HR 153 core temp 101.6; 4 point restraints soft in [address]. Precedex mas at 1.5 via Rt FA; Left FA D51/2 potassium. Tylenol IV infused. Ativan prn for MSAS been given. additiona Ativan 1mg and
Haldol administered per one time order. CT head ordered Unable to take pt to CT due to severe agitation.
--- NOTE | 2024-01-01 17:44 | PTCARENOTE ---
patient taking to CT head. During CT patient became agitated and restless . Unable to perform CT . Vascular Angela iron miner and Dr Mustafa notified . At this time pt restless and agitated with 4 point restraints attempting to pull peripheral lines
and Lee. Mitts added to 4 point restraints . Ativan 2 mg per prn order have bee adm. pt on Precedex 1.5 per protocol via left FA HOB elevated
--- NOTE | 2024-01-01 20:00 | PTCARENOTE ---
Resumed care of pt this evening. Received pt on precedex gtt infusing at 1.5 mcg/kg/hr via left peripheral IV site. Pt is currently sleeping but is arousable to verbal and tactile stimuli. Pt is also in 4 point soft limb restraints w/ 4 side rails.
Pt is in NSR on tele monitor, has no edema, and + radial pulses. PT and DP pulses present w/ doppler. Pt is on 3L of O2 satting at 95% pulse ox. On auscultation pt lungs sound diminished TO. NPO status maintained. Pt's abdomen has +BS. Lee in
place draining yellow colored urine. Surgical dressings; abdominal incision and b/l groin C/D/I. VSS.
--- NOTE | 2024-01-01 21:30 | PTCARENOTE ---
Pt scoring >11 on MSAS for increased restless, agitation, HR, diaphoresis, hallucinations, and disorientation. IV ativan administered by this RN per protocol.
[2024-01-01] MEDS: NSS (PRESERVATIVE FREE) 1 ML IV (22:15)
[2024-01-02] VITALS (22 sets, daily range): BP systolic 124–187; BP diastolic 65–94; BMI 24.8
[2024-01-02] MEDS: D5/0.45%NSS with KCL 10 MEQ 1000 IV ×2 (01:47→14:40)
[2024-01-02] MEDS: HEPARIN 5000 UNITS SC ×4 (01:49→23:09)
[2024-01-02] MEDS: PRECEDEX 100 IV ×5 (02:47→20:10)
[2024-01-02] MEDS: NSS (PRESERVATIVE FREE) 1 ML IV ×4 (02:49→23:09)
[2024-01-02] MEDS: ATIVAN 2 MG IV ×8 (02:49→23:08)
--- NOTE | 2024-01-02 04:30 | PTCARENOTE ---
Pt neurovascular checks unchanged since previous shift. B/L PT and DP pulses present w/ doppler. Pt continues to require frequent ativan doses due to high MSAS scores >11.
[2024-01-02 05:28] LABS: Hemoglobin 7.1 g/dL (13.0-18.0); Mean Corp Hgb Conc. 34.6 g/dL (33.0-37.0); Mean Corpuscular Hgb 32.3 pg (27.0-31.0); Mean Corpuscular Volume 93.2 fL (80.0-94.0); Mean Platelet Volume 10.2 fL (7.4-10.4); Platelet Count 189 10^3/uL (130-400); Red Cell Dist. Width 13.2 % (11.5-14.5); White Blood Cell Count 15.3 10^3/uL (4.8-10.8)
[2024-01-02 05:59] LABS: Blood Urea Nitrogen 7 mg/dl (9-20); Calcium 8.5 mg/dl (8.4-10.2); Carbon Dioxide 25 mmol/L (22-30); Chloride 111 mmol/L (98-107); Estimated Creatinine Clearance 94 ml/min; Glucose 138 mg/dl (70-99); Potassium 3.1 mmol/L (3.5-5.1); Sodium 141 mmol/L (135-145); eGFR > 60.00
[2024-01-02 06:49] LABS: Hematocrit 20.5 % (39.0-52.0)
[2024-01-02] MEDS: NSS (PRESERVATIVE FREE) 10 ML IV (07:14)
[2024-01-02] MEDS: THIAMINE INJECTION 200 MG IV (07:18)
[2024-01-02] MEDS: NICODERM TRANSDERMAL 14 MG TRANSDERM (07:20)
[2024-01-02] MEDS: PROTONIX IV 40 MG IV (07:20)
--- NOTE | 2024-01-02 08:19 | W.PN.VS ---
Today's Communication / Plan
-
Plan:
[facility]WA
Recommend CT head for change in mental status with increased sedation per ICU
draw lactate
transfuse 1u PRBC
Assessment/Plan
-
Assessment: 63 year old male POD #3 Aortobifemoral bypass and right femoral endarterectomy
Plan:
CIWA
Recommend CT head for change in mental status with increased sedation per ICU
draw lactate
transfuse 1u PRBC
Subjective Data
-
Date of Service: January 02, 2024
POD 3 ABF
Still with altered mental status presumed to be alcohol withdrawl
Receiving ativan q1h, precedex
Unable to complete CT head yesterday
When not agitated, without tachycardia
No true fever since yesterday
WBC trending down
++ urine output
Objective Data
-
Vital Signs
Temp Pulse Resp BP Pulse Ox
98.9 F 74 20 143/75 96
01/02/24 07:19 01/02/24 06:16 01/02/24 06:16 01/02/24 06:16 01/02/24 06:16
Intake and Output
01/01/24 01/02/24 01/03/24
06:59 06:59 06:59
Intake Total 2673.9 / 2808.5 2567.6 / 2674.0 106.4 / 106.4
Output Total 1850 / 2100 3670 / 3700 30 / 30
Balance 823.9 / 708.5 -1102.4 / -1026.0 76.4 / 76.4
Intake:
IV fluids (Total) 2673.9 / 2808.5 2567.6 / 2674.0 106.4 / 106.4
Dilaudid HOSPITAL HOUSEKEEPER 2.2 / 2.2
Nss 1,000 ml @ 110 mls/hr IV . 2640 / 2750 2040 / 2120 80 / 80
Q9H6M [facility] Rx[facility][id number]
Precedex 31.7 / 56.3 527.6 / 554.0 26.4 / 26.4
Output:
Gastrointestinal tube output ( 100 / 100
Total)
[place] Sump 100 / 100
Urine, Lee 1750 / 1999 3670 / 3700 30 / 30
Lab Results
01/02/24 05:00
01/02/24 05:00
Calcium 8.5 mg/dl (8.4-10.2) 01/02/24 05:00
Magnesium 2.2 mg/dl (1.6-2.3) 01/01/24 03:37
Physical Exam
-
Abdomen soft, nondistended
incisions all CDI
Signals present in feet
2+ femorals bilaterally
--- NOTE | 2024-01-02 08:38 | PTCARENOTE ---
patient received 0700 in bed agitated, restless and confused. soft restraints b/L UE wrist, 4 side rails , b/l mitts . peripheral lines : RT Upper arm D51/2 +20 KCL infusing at 80 hr and Precedex 1.5mcg . VSS HOB elevated
[2024-01-02 08:39] LABS: Lactic Acid 1.1 mmol/L (0.7-2.0)
--- NOTE | 2024-01-02 09:01 | W.PN.INTV ---
Addendum entered and electronically signed by Antolin Xiao MD 01/02/24 09:30:
Hemoglobin has dropped. Possibly hemodilutional.
Follow H&H
Start Protonix
Monitor for bleeding.
-
Will give additional Ativan to hopefully obtain CT head later.
Original Note:
Today's Communication / Plan
Recommendations
Continue Precedex
Will add labetalol as needed for systolic blood pressure greater than 180
Replete potassium
Continue alcohol withdrawal protocol
Will add Ativan IV standing dose 3 times a day
Consult psychiatry to help manage alcohol withdrawal
Monitor respiratory status closely
Follow HH
Assessment
-
-
IMPRESSION: This is a 63 year old male patient scheduled for aortobifemoral bypass surgery with Dr. Velázquez for chronic limb threatening ischemia with severe multilevel peripheral arterial disease bilateral (left greater than right) lower extremities.
Status post bifemoral aortic bifemoral bypass due to severe peripheral occlusive arterial disease.
Alcohol withdrawal.
Anemia
Hypokalemia
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
HTN
central cord syndrome
PAD
Current Tobacco Use
PLAN:
-
#Severe multilevel PAD
post op day #3
-
Severe alcohol withdrawal.
MSAS
Currently on Precedex drip
Intermittently agitated despite above.
Noncooperative.
Was noncooperative for CT head despite additional Ativan.
Will consult psychiatry, possibly will need phenobarbital
NG tube may need to be placed. At the moment noncooperative.
Will add Ativan [id number] 1 mg IV every 8 hours.
-
Vascular surgery following.
Continue neurovascular checks per protocol
Hemodynamically stable.
Patient is hypertensive. Likely due to alcohol withdrawal. Will add labetalol as needed for blood pressure greater than 180 systolic.
-Continue NPO as per vascular-okay for ice chips.
Continue maintenance IV fluids
Lee in place with clear urine
-
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
Continue IV Tylenol as needed
Will try to minimize narcotic if possible.Risk of respiratory discomfort and sedation.
Monitor respiratory status closely.
-
Daily electrolytes.
Potassium will be repleted today
Repeat BMP at 3 PM
-
-
Smoking cessation: Nicotine patch.
-
Emphysema on CT of the abdomen pelvis: Possible COPD given ongoing smoking.
Would benefit from outpatient pulmonary evaluation at some point. May qualify for lung cancer screening.
-
Possible BPH by CAT scan. Monitor for urinary retention.
-
DVT prophylaxis with subcu heparin.
-
Critical care statement: A total of 32 minutes of critical care time was provided for this patient today. This includes management of unstable vital signs, evaluation of the patient at bedside, reviewing the patient's pertinent medical records
including radiographs, microbiology, laboratory evaluations and discussion with primary team, critical care nursing, and respiratory therapy.
Subjective Dataa
Subjective Data
Date of Service:
Date of Service: January 02, 2024
Chief Complaint: [employer] Processing Follow Up (Status post aortic bifemoral bypass.)
Subjective:
Patient continues to be intermittently agitated despite Precedex drip and as needed Ativan per alcohol withdrawal protocol.
Hypertensive.
Noncooperative. Unable to provide history.
Review of Systems
General: Other (Due to delirium)
Objective Data
Data Reviewed
Vital Signs / I&O / Oxygen:
Vital Signs
Temp Pulse Resp BP Pulse Ox
99.5 F 78 18 187/81 91
01/02/24 08:23 01/02/24 08:30 01/02/24 08:30 01/02/24 08:00 01/02/24 08:30
Intake and Output
01/01/24 01/02/24 01/03/24
06:59 06:59 06:59
Intake Total 2673.9 / 2808.5 2567.6 / 2674.0 106.4 / 106.4
Output Total 1849 / 2099 3670 / 3700
Balance 823.9 / 708.5 -1102.4 / -1026.0 76.4 / 76.4
SaO2 91
Nasal Cannula flow liters per 3
minute
Physical Exam
General: Fever (negative) and Chills (negative)
HEENT: Normocephalic
Cardiovascular: S1-S2 and Regular Rhythm
Respiratory: Clear and Non-Labored Respirations
GI: Soft, Non Distended and Other (midline abdominal dressing- no hematoma)
Neurology: Other (Currently somnolent on Precedex drip.) and Other (Intermittently agitated, not following commands. Moving 4 extremities.)
Skin: Warm
Labs/Micro/Reports
Lab Data
01/02/24 05:00
01/02/24 05:00
[2024-01-02 09:03] LABS: Magnesium 2.1 mg/dl (1.6-2.3)
[2024-01-02] MEDS: NSS (PRESERVATIVE FREE) 0.5 ML IV (09:21)
[2024-01-02] MEDS: ATIVAN 1 MG IV ×2 (09:21→10:55)
[2024-01-02] MEDS: KCL 270 MEQ IV (09:24)
--- NOTE | 2024-01-02 09:42 | W.PN.UPDATE ---
Update Note
Progress Note Update
I updated his over the phone. Explained severe withdrawal from alcohol. High received lesion.
Will continue with supportive care.
In addition mention possibility of placing a small bore NG tube for feedings.
--- NOTE | 2024-01-02 12:28 | PTCARENOTE ---
attempted to transfer patient to CT per current order. Prior to transfer patient appeared well sedated . During transfer on a way to CT patient became very agitated and restless. pt transfer back to his room . 4 point restraint and mitts in place .
pt on Precedex 1.5mg via Rt Upper arm; KCL 40meq infusing left AC Ativan Q 8 hrs and prn per MSAS score administered. At this time patient very agitated and restless
[2024-01-02] MEDS: NSS (PRESERVATIVE FREE) 0.900000000000000022 ML IV (13:39)
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
[2024-01-02 14:37] LABS: Hemoglobin 7.2 g/dL (13.0-18.0)
[2024-01-02 14:51] LABS: Blood Urea Nitrogen 7 mg/dl (9-20); Calcium 8.5 mg/dl (8.4-10.2); Carbon Dioxide 26 mmol/L (22-30); Chloride 111 mmol/L (98-107); Estimated Creatinine Clearance 94 ml/min; Glucose 143 mg/dl (70-99); Magnesium 2.1 mg/dl (1.6-2.3); Potassium 4.1 mmol/L (3.5-5.1); Sodium 140 mmol/L (135-145); eGFR > 60.00
--- NOTE | 2024-01-02 16:00 | PTCARENOTE ---
repeat labs to Dr. Mustafa at 1500, no new orders at this time. calling out at times, see MSAS, ativan given per order. given ice chip when awake, c/o being cold. attempted to reorient. Precedex continues, incisions as noted, doppler pulses.
remains restrained for pt safety.
[2024-01-02] MEDS: OFIRMEV 100 IV (18:42)
[2024-01-02] MEDS: VITAMIN B1 PO (19:52)
--- NOTE | 2024-01-02 20:00 | PTCARENOTE ---
Resumed care of pt this evening. Received pt on precedex gtt. Pt is arousable to verbal and tactile stimuli. Neurovascular checks unchanged from previous shift. Pt has generalized weakness but is able to move all 4 extremities. Pt is NSR on tele
monitor, has no edema, and B/L DP and PT pulses present w/ doppler. Pt on 2L of O2 satting at 97% pulse ox. On auscultation pt lungs sound diminished TO. Pt's abdomen is round and tender to palp. Pt has manzo in place draining yellow colored urine.
Surgical sites approximated, and C/D/I. MSAS 1. VSS.
[2024-01-03] VITALS (47 sets, daily range): BP systolic 133–208; BP diastolic 64–112; PULSE 121–130; O2SAT 95; BMI 25.1
[2024-01-03] MEDS: D5/0.45%NSS with KCL 10 MEQ 1000 IV (00:33)
[2024-01-03] MEDS: NSS (PRESERVATIVE FREE) 1 ML IV ×6 (00:34→23:52)
[2024-01-03] MEDS: ATIVAN 2 MG IV ×6 (00:34→23:52)
--- NOTE | 2024-01-03 01:45 | PTCARENOTE ---
Pt requiring additional PRN dose of ativan for MSAS >11.
[2024-01-03] MEDS: NSS (PRESERVATIVE FREE) 10 ML IV ×3 (02:00→20:51)
[2024-01-03] MEDS: PRECEDEX 100 IV ×2 (02:03→05:31)
--- NOTE | 2024-01-03 03:58 | PTCARENOTE ---
Upon reassessment neurovascular checks remain unchanged. VSS.
[2024-01-03 04:32] LABS: Hematocrit 22.7 % (39.0-52.0); Hemoglobin 7.8 g/dL (13.0-18.0); Mean Corp Hgb Conc. 34.4 g/dL (33.0-37.0); Mean Corpuscular Hgb 31.5 pg (27.0-31.0); Mean Corpuscular Volume 91.5 fL (80.0-94.0); Mean Platelet Volume 9.8 fL (7.4-10.4); Platelet Count 234 10^3/uL (130-400); Red Blood Cell Count 2.48 10^6/uL (4.70-6.10); Red Cell Dist. Width 13.2 % (11.5-14.5); White Blood Cell Count 15.2 10^3/uL (4.8-10.8)
[2024-01-03 05:16] LABS: Blood Urea Nitrogen 7 mg/dl (9-20); Calcium 8.7 mg/dl (8.4-10.2); Carbon Dioxide 23 mmol/L (22-30); Chloride 110 mmol/L (98-107); Estimated Creatinine Clearance 94 ml/min; Glucose 127 mg/dl (70-99); Potassium 3.4 mmol/L (3.5-5.1); Sodium 142 mmol/L (135-145); eGFR > 60.00
[2024-01-03] MEDS: KCL 160 MEQ IV (06:31)
[2024-01-03] MEDS: NICODERM TRANSDERMAL 14 MG TRANSDERM (08:04)
[2024-01-03] MEDS: PROTONIX IV 40 MG IV (08:04)
[2024-01-03] MEDS: HEPARIN 5000 UNITS SC (08:04)
[2024-01-03] MEDS: VITAMIN B1 100 MG PO (08:06)
--- NOTE | 2024-01-03 08:49 | W.PN.INTV ---
Documented by User: Nayla Ashford, Resident, 01/03/24 11:29
Today's Communication / Plan
Recommendations
Wean off precedex
Started albuterol and guaifenesin
U/S groin
Assessment
-
-
IMPRESSION: This is a 63 year old male patient scheduled for aortobifemoral bypass surgery with Dr. Velázquez for chronic limb threatening ischemia with severe multilevel peripheral arterial disease bilateral (left greater than right) lower extremities.
Status post bifemoral aortic bifemoral bypass due to severe peripheral occlusive arterial disease.
Alcohol withdrawal.
Anemia
Hypokalemia
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
HTN
central cord syndrome
PAD
Current Tobacco Use
PLAN:
-
#Severe multilevel PAD
post op day #4
Vascular surgery following.
Continue neurovascular checks per protocol
Hemodynamically stable.
Patient is hypertensive. Likely due to alcohol withdrawal.
Advanced to clear liquids
Discontinue manzo
-
#Severe alcohol withdrawal.
MSAS
Wean off precedex drip
Was noncooperative for CT head
physiatry consulted, recs appreciated- continue ativan and precedex.
-
Continue IV Tylenol as needed
Will try to minimize narcotic if possible.Risk of respiratory discomfort and sedation.
Monitor respiratory status closely.
-
Daily electrolytes.
-
Smoking cessation: Nicotine patch.
-
Swollen Scrotal Region/?edema due to surgery/?Orchitis
U/S groin ordered
-
Emphysema on CT of the abdomen pelvis: Possible COPD given ongoing smoking.
Started albuterol Nebs, guaifenesin
Would benefit from outpatient pulmonary evaluation at some point. May qualify for lung cancer screening.
-
Possible BPH by CAT scan. Monitor for urinary retention.
-
DVT prophylaxis with subcu heparin.
Subjective Dataa
Subjective Data
Date of Service:
Date of Service: January 03, 2024
Chief Complaint: Cto Follow Up (Status post aortic bifemoral bypass.)
Subjective:
Patient was examined at bedside. He was awake and alert. He had restraints at the time of exam.
Review of Systems
General: Fever (negative) and Chills (negative)
Genitourinary: Manzo
Objective Data
Data Reviewed
Vital Signs / I&O / Oxygen:
Vital Signs
Temp Pulse Resp BP Pulse Ox
99.9 F 70 18 166/77 99
01/03/24 07:14 01/03/24 06:30 01/03/24 06:30 01/03/24 06:00 01/03/24 06:30
Intake and Output
01/02/24 01/03/24 01/04/24
06:59 06:59 06:59
Intake Total 2567.6 / 2674.0 2432.2 / 2609.8 351.7 / 351.7
Output Total 3670 / 3700 1161 / 1181 60 / 60
Balance -1102.4 / -1026.0 1271.2 / 1428.8 291.7 / 291.7
SaO2 99
Nasal Cannula flow liters per 2
minute
Physical Exam
General: Fever (negative) and Chills (negative)
HEENT: Normocephalic
Cardiovascular: S1-S2 and Regular Rhythm
Respiratory: Clear and Non-Labored Respirations
GI: Soft, Non Distended and Other (swollen, tender testicles)
Neurology: Other (Currently somnolent on Precedex drip.) and Other (Intermittently agitated, not following commands. Moving 4 extremities.)
Skin: Warm
Labs/Micro/Reports
Lab Data
01/03/24 04:23
01/03/24 04:23

Documented by User: Kyle Rob MD 01/03/24 13:26
Today's Communication / Plan
Recommendations
Wean off precedex
Started albuterol and guaifenesin
U/S groin
Neurochecks
Assessment
-
-
Assessment:
Mr Daniel Danielle is a 63 year old male patient scheduled for aortobifemoral bypass surgery with Dr. Velázquez for chronic limb threatening ischemia with severe multilevel peripheral arterial disease bilateral (left greater than right) lower extremities,
surgery done 12-29.
Impression:
Status post bifemoral aortic bifemoral bypass due to severe peripheral occlusive arterial disease: 12-29
Alcohol withdrawal.
Anemia
Hypokalemia
Acute LUE weakness, 90% stenosis R carotid bulb, 01-02
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
HTN
central cord syndrome
PAD
Current Tobacco Use
PLAN:
#Severe multilevel PAD
Post op day #4 on 01-02
Vascular surgery following.
Continue neurovascular checks per protocol
Patient is hypertensive, likely component of alcohol withdrawal.
Advanced to clear liquids
Discontinue manzo
Acute LUE weakness
Head CT s/c negative
CTA head 90% stenosis of R carotid bulb
Avoid hypotension
ASA 81 mg qd
No indication for thrombolysis due very recent vascular surgery
#Severe alcohol withdrawal.
MSAS
Wean off precedex drip
Was noncooperative for CT head on adm
Psychiatry consulted, recs appreciated- continue ativan IV fleeting dosis and and precedex gtt
Continue IV Tylenol as needed
Will try to minimize narcotic if possible.Risk of respiratory discomfort and sedation.
Monitor respiratory status closely.
Daily electrolytes.
Smoking cessation: Nicotine patch.
Swollen Scrotal Region/?edema due to surgery/?Orchitis
U/S groin ordered 01-02
D/w Dr Manzo, romelia clinical findings likely related to postop inflammatory changes (no suspicion of vascular compromise of gonadal vessels)
Emphysema on CT of the abdomen pelvis: Possible COPD given ongoing smoking.
Started albuterol Nebs, guaifenesin
No current need for systemic CSs
Would benefit from outpatient pulmonary evaluation at some point. May qualify for lung cancer screening.
Possible BPH by CAT scan. Monitor for urinary retention.
DVT prophylaxis with subcu heparin
Critical care time: 40 min
D/w Eber Sibley and Tiffanie
ATTENDING PHYSICIAN ATTESTATION:
(Follow-up Visit:)
I personally saw and evaluated the patient along with the Resident Dr Ashford.
Discussed with Resident and discussed in rounds with MDT.
I agree with Resident�s findings and plan as documented in the resident�s note, which was edited by myself.
Subjective Dataa
Subjective Data
Subjective:
Patient was examined at bedside. He was awake and alert. He had restraints at the time of exam.
This morning, patient presented sudden onset of left upper extremity weakness, seen in conjunction with neurologist Dr. Moreno via stroke alert: Head CT without contrast negative, head and neck CTA showed 90% stenosis of the right carotid bulb
Discussed with Dr. Velázquez and Tiffanie at bedside
Review of Systems
Neuro: Numbness (Left upper extremity)
Objective Data
Physical Exam
General: Respiratory Distress (n)
HEENT: Moist Mucous Membranes
Cardiovascular: Murmur (n), Peripheral Edema (n) and Calf Tenderness (n)
Respiratory: Stridor (n)
GI: Non Tender and Normal Bowel Sounds
Neurology: Awake, Oriented and Other (Left upper extremity weakness)
--- NOTE | 2024-01-03 09:14 | PTCARENOTE ---
Received pt sleeping.Awakened to voice.Pt is now awake,watching TV,intermittently dozing.Awakens to voice.+VICKERS.Follows commands consistently.Assists with repositioning.Speech is slightly slurred ,but mostly appropriate.Is not oriented to place, and
is unsure of situation.Denies pain.SR-ST noted.IVF and Precedex gtt infusing.Tachypnea noted.Inspiratory and expiratory wheezing noted.Intermittent productive cough noted.Expectorating moderate amount thick silverman sputum.IS 750 ml.Acapella used as
ordered.NPO except for meds.No difficulty swallowing noted.No BM.Lee draining yellow urine.BL groin and midline abdominal incisions intact without drainage.Plan of care discussed with the patient and his .
--- NOTE | 2024-01-03 10:15 | W.PN.VS ---
Addendum entered and electronically signed by WERNER Estrada 01/03/24 13:07:
Pt seen at bedside with Dr Velázquez for Stroke alert called by PT and RN for new left arm weakness. Pt seen by Neurology and CT performed.
New orders:
-MRI brain
-2 units PRBC with 20mg IV lasix in between units
-Hold IVF while blood running
-ASA
-OT
-permissive hypertension SBP 220max
-Changed hydralazine parameters
Original Note:
Today's Communication / Plan
-
Seen and assessed with Dr. Lee
Assessment/Plan
-
Assessment: 63 year old male POD #4 Aortobifemoral bypass and right femoral endarterectomy
Plan:
CIWA, weaning Precedex
Slow clear liquids
DC Lee catheter
Can transfer to [address] [place] [address] when off Precedex
Hemoglobin stable
Subjective Data
-
Date of Service: January 03, 2024
Patient seen at bedside this a.m. with Dr. Lee. Patient was sedated overnight for alcohol withdrawal protocol. This morning he has been weaned and is more alert, answers questions and cooperates. No other events overnight
Objective Data
-
Vital Signs
Temp Pulse Resp BP Pulse Ox
99.9 F 73 22 142/69 99
01/03/24 07:14 01/03/24 09:00 01/03/24 09:00 01/03/24 09:00 01/03/24 09:00
Intake and Output
01/02/24 01/03/24 01/04/24
06:59 06:59 06:59
Intake Total 2567.6 / 2674.0 2432.2 / 2609.8 438.7 / 438.7
Output Total 3670 / 3700 1161 / 1181 90 / 90
Balance -1102.4 / -1026.0 1271.2 / 1428.8 348.7 / 348.7
Intake:
IV fluids (Total) 2567.6 / 2674.0 2102.2 / 2279.8 438.7 / 438.7
D5/0.45%NSS with KCL 10 MEQ 10 1280 / 1360 240 / 240
meq In 1,000 ml @ 80 mls/hr IV
.[id number] [facility] Rx#:[id number]
K rider 160 / 160
Nss 1,000 ml @ 110 mls/hr IV . 2040 / 2120 240 / 240
[id number] [facility] Rx#:[id number]
Precedex 527.6 / 554.0 582.2 / 599.8 38.7 / 38.7
IV piggybacks 330 / 330
Output:
Urine, Lee 3670 / 3700 1161 / 1181 90 / 90
Lab Results
01/03/24 04:23
01/03/24 04:23
Calcium 8.7 mg/dl (8.4-10.2) 01/03/24 04:23
Magnesium 2.1 mg/dl (1.6-2.3) 01/02/24 14:27
Physical Exam
-
AAOx3, NAD
RRR, no tachycardia
No dyspnea on room air
midline ABD surgical incision CDI, ABD soft, mild distention
BL groin sites CDI, no hematoma, all surrounding compartments soft
BL feet warm, BL PT by doppler, Left DP by doppler
[2024-01-03] MEDS: APRESOLINE 5 MG IV (10:36)
[2024-01-03] MEDS: OFIRMEV 100 IV (10:36)
[2024-01-03] MEDS: ATIVAN 1 MG IV ×4 (11:09→23:36)
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
[2024-01-03 12:43] LABS: HDL Cholesterol 45 mg/dl; LDL Cholesterol, Calculated 52 mg/dl; Total Cholesterol 131 mg/dl (50-199); Triglyceride 170 mg/dl (10-149); Very Low Density Lipoprotein 34 mg/dl (0-30)
--- NOTE | 2024-01-03 12:59 | W.PN.UPDATE ---
Update Note
Progress Note Update
I was informed by neurologist that he was called with stroke alert. Patient seen and evaluated, patient had just returned from CT scan. Discussed with neurologist as well as nursing. From what I can gather, patient was weaned off Precedex this
morning. Appears to be doing well overall. Worked with physical therapy. Around noon was noted to have left arm weakness by physical therapy. Possible facial asymmetry. Stroke alert called. Neurologist evaluated and was concerned acute right
hemispheric stroke possible. No A-fib noted on monitor or other arrhythmia. Patient notes he is left-hand dominant.
On exam/systolic blood pressure in the 190s currently. Heart rate 110s to 120s. See neurology note regarding neurologic exam but he definitively has left arm weakness compared to right. He is able to minimally lift against gravity but forcefully
is able to go against gravity but not against resistance really. Left leg he is able to lift against resistance but slightly weaker than right side possible. Mild if at all facial asymmetry. Will defer neglect exam to neurologist. Abdomen is
soft, minimal distention. Incision is clean dry and intact. He is not significantly tender. Groins are flat bilaterally incisions clean dry and intact bilaterally. Palpable bilateral femoral pulses. Feet are warm. Dopplerable DP and PT signals
bilaterally.
CT angiogram head and neck reviewed. Bulky severe right proximal cervical internal carotid artery heavy near occlusive plaque. The artery is somewhat smaller distal to the plaque slightly underfilled. No evidence of any thrombotic or embolic
cutoff in the extracranial or intracranial ICA. Middle cerebral also appears widely patent with no clear-cut for embolism. Large anterior communicating artery patent.
Plan/ Apparent right hemispheric CVA by exam. CTA without evidence of any major vessel cutoff or clear-cut intracranial embolic event. Discussed with neurology. Based on patient's major surgery including aortic anastomosis and bilateral femoral
artery anastomoses, tPA is a contraindication unfortunately this point. I think he has very severe and serious bleeding risks if tPA is administered from these anastomoses. Therefore we will manage conservatively in discussion with neurology.
Increase blood pressure parameter goals (per neurology systolic of 220 and end-diastolic of 120 acceptable). Will transfuse 2 units of packed red blood cells to increase hemoglobin (no evidence of active bleeding). 20 mg of Lasix in between blood
transfusions. Continue close neurologic evaluation. MRI brain. I updated his via the phone. Pending MRI outcome, and recovery, may require revascularization of right carotid on this admission.
--- NOTE | 2024-01-03 13:00 | PTCARENOTE ---
1015-Lee discontinued as ordered.Precedex gtt weaned off.
1140-Pt assisted OOB to chair by PT associate and PT PCT.
1200-PT associate states that pt's left arm and leg are weak.Pt unable to construction grip walker.Pt remain awake and alert at this time.Slight left facial droop noted.Stroke alert called.Speech is slightly slurred-unchanged from this morning.Gaze intact.No
visual disturbance noted.Denies sensory changes.Pt incontinent of large amount yellow urine.Abelardo He and Federica at bedside.STAT CT head and CTA completed as ordered.
1300-Pt returned to ICU.Dr Velázquez at bedside.Neuro assessment unchanged.
[2024-01-03 13:33] LABS: Glycohemoglobin (HgbA1c) 5.3 % (4.0-5.6)
--- NOTE | 2024-01-03 13:45 | CM ---
Reviewed chart, patient not progressing well in PT. Still forgetful and experiencing withdrawal. Will discuss indications on behalf of medical staff with patient.
Plan: Case management will continue to follow and assist with discharge planning. SNF vrs. Home.
[2024-01-03 13:46] LABS: TSH Reflex To Free T4 0.82 uIU/ml (0.47-4.68)
[2024-01-03] MEDS: VENTOLIN NEBULES INH ×3 (13:50→20:45)
[2024-01-03 14:22] LABS: Folate 6.6 ng/ml (2.76-20); Vitamin B12 982 pg/ml (239-931)
--- NOTE | 2024-01-03 14:51 | W.PN.UPDATE ---
Update Note
Progress Note Update
Pt seen receiving PT eval, reviewed with nursing. Pt doing much better, nursing staff reports Precedex was stopped, pt out of restraints. Pt calm, alert, cooperative. MSAS score 5 this morning, given Ativan 1 mg. Pt received multiple doses of
Ativan 2 mg the past 2 days. Approx 4 days since pt's last drink of alcohol, reportedly drinks a 6- pack of beer on average daily.
Imp: Alcohol use, unspecified, with alcohol withdrawal delirium, improving
Rec: continue on MSAS.
will follow loosely
[2024-01-03] MEDS: LOW STRENGTH ASPIRIN 324 MG PO (15:38)
--- NOTE | 2024-01-03 16:05 | PTCARENOTE ---
Pt assessed.Neuro assessment unchanged.Left upper extremity weakness unchanged.Left lower extremity weakness improved.Speech is unchanged.Left facial droop unchanged.Denies pain.MRI completed as ordered.ST noted.PRBC transfusing as ordered.POX 96%
on RA.Continues to expectorate thick silverman secretions.Pt passed nursing swallow evaluation.No BM.Pt using condom cath to void yellow urine.Skin integrity remains unchanged.Pt's and son at bedside.Plan of care discussed.MERRY Elliott discussed MRI
results and plan of care with pt and his family.
[2024-01-03 16:35] LABS: Glucose - Point of Care 107 mg/dl (70-99)
[2024-01-03] MEDS: LOVENOX 40 MG SC (17:32)
[2024-01-03] MEDS: LASIX 20 MG IV (18:11)
--- NOTE | 2024-01-03 20:00 | PTCARENOTE ---
Resumed care of pt this evening. NIHSS performed at bedside w/ day shift RN. NIHSS 4, improved left sided weakness from earlier in the day. 2nd unit of PRBCs currently transfusing via rt peripheral IV site. Pt is confused and forgetful. Pt is A&Ox1
to self. Pt is ST on tele monitor. Neurovascular checks unchanged from previous assessment. B/L PT and DP pulses present w/ doppler. Pt on RA satting at 94% pulse ox. On auscultation pt lungs sound diminished w/ an inspiratory wheeze. Rt groin
surgical site draining small amount of serous fluid, wound dressed w/ sterile ABD pad. Left groin surgical site C/D/I. Abdominal surgical dressing intact.
[2024-01-03] MEDS: DILAUDID 0.5 MG IV (20:50)
[2024-01-03] MEDS: MUCINEX PO (21:02)
[2024-01-03] MEDS: LIPITOR PO (21:02)
[2024-01-03] MEDS: VITAMIN B1 PO (21:03)
--- NOTE | 2024-01-03 21:19 | CON.MD ---
Consultation - Medical
-
ctsp for tonight for abnl u/s findings
pt in iuc- confused and in restraints- can not offer any sig hx
underwent vasc bypass procedure on 12/29
complicated by etoh withdrawal and today a stroke
some groin swelling was noted by nurse this am- u/s ordered- performed at 8:30pm
showed no flow to right testicle
on exam- the right testicle is in normal position without evid of torsion- somewhat firm and tender
plan
vasc compromise to right testicle
doubt true torsion
in any event- the liklihood of meaningful blood flow mosque given the time course and etiology is extremely remote and very high risk given current clinical situation
i did discuss with his and reviewed options/likely testicular loss
plan for supportive care
will follow
--- NOTE | 2024-01-03 21:30 | PTCARENOTE ---
Pt seen by urology at bedside due to concern for testicular torsion. Urologist, Dr. Dodd, notified this RN that surgical intervention is not needed at this time and to continue to monitor the pt for any changes.
--- NOTE | 2024-01-03 22:00 | PTCARENOTE ---
Pt becoming uncooperative, agitated, and combative towards staff. MSAS >11. IV ativan administered. Pt states, 'I want to go home! Get me out of here!' Unable to reorient pt.
[2024-01-04] VITALS (26 sets, daily range): BP systolic 125–197; BP diastolic 72–122; PULSE 124–126; O2SAT 95; BMI 23.7; BMI 23.8
[2024-01-04] MEDS: DILAUDID 0.5 MG IV ×4 (00:21→21:10)
[2024-01-04 05:21] LABS: Hematocrit 30.9 % (39.0-52.0); Mean Corp Hgb Conc. 35.6 g/dL (33.0-37.0); Mean Corpuscular Hgb 31.7 pg (27.0-31.0); Platelet Count 285 10^3/uL (130-400); Red Blood Cell Count 3.47 10^6/uL (4.70-6.10); Red Cell Dist. Width 14.6 % (11.5-14.5)
[2024-01-04] MEDS: ATIVAN 2 MG IV ×2 (06:25→10:29)
[2024-01-04] MEDS: NSS (PRESERVATIVE FREE) 1 ML IV ×4 (06:26→16:03)
[2024-01-04 06:30] LABS: Blood Urea Nitrogen 9 mg/dl (9-20); Calcium 8.9 mg/dl (8.4-10.2); Carbon Dioxide 23 mmol/L (22-30); Chloride 109 mmol/L (98-107); Estimated Creatinine Clearance 82 ml/min; Glucose 106 mg/dl (70-99); Magnesium 1.8 mg/dl (1.6-2.3); Sodium 144 mmol/L (135-145); eGFR > 60.00
--- NOTE | 2024-01-04 06:38 | W.PN.URO.CBU ---
Today's Communication / Plan
-
continue to observe
Assessment / Plan
-
ischemia of right testicle
reviewed with dr whipple
at this point- nosurgical indications- will follow
Diagnosis
-
Date of Service: January 04, 2024
-
Patient Diagnosis:
ischemic right testicle
Subjective
-
pt still confused and in restraints
no complaints of testicular pain
condom cath in place
Objective
-
Vital Signs
Temp Pulse Resp BP Pulse Ox
99.9 F 130 21 192/111 94
01/04/24 06:28 01/04/24 06:30 01/04/24 06:30 01/04/24 06:30 01/04/24 06:30
Intake and Output
01/02/24 01/03/24 01/04/24
06:59 06:59 06:59
Intake Total 2567.6 / 2674.0 2432.2 / 2609.8 1178.7 / 1178.7
Output Total 3670 / 3700 1161 / 1181 1650 / 1650
Balance -1102.4 / -1026.0 1271.2 / 1428.8 -471.3 / -471.3
Intake:
Oral fluids 0 / 0
IV fluids (Total) 2567.6 / 2674.0 2102.2 / 2279.8 678.7 / 678.7
D5/0.45%NSS with KCL 10 MEQ 10 1280 / 1360 480 / 480
meq In 1,000 ml @ 80 mls/hr IV
.[id number] [facility] Rx#:[id number]
K rider 160 / 160
Nss 1,000 ml @ 110 mls/hr IV . 2039 / 2119 240 / 240
Q9H6M [facility] Rx#:[id number]
Precedex 527.6 / 554.0 582.2 / 599.8 38.7 / 38.7
IV piggybacks 330 / 330
Blood Product Amount Infused ( 500 / 500
mL)
Packed Rbc Leukoreduced Unit 250 / 250
[id number]
Packed Rbc Leukoreduced Unit 250 / 250
[id number]
Output:
Urine, Lee 3670 / 3700 1161 / 1181 150 / 150
Urine, Voided 1500 / 1500
Other:
How many times incontinent 1
SMALL amount urine
How many times incontinent 1
SATURATED amount urine
Laboratory Results
01/04/24 04:50
01/04/24 04:50
Review of Systems
-
Unable to obtain full review of systems at this time due to: Other (pt confused and agitated)
Physical Exam
-
General - confused
Abdomen - soft
Genitalia - condom cath in place- left testicle and scrotal skin normal- right testicle is firm- but unchanged
--- NOTE | 2024-01-04 06:49 | W.PN.NEURO.1 ---
Today's Communication / Plan
-
-Continue alcohol withdrawal monitoring and treatment with aggressive use of lorazepam as needed
-Continue p.o. thiamine and folate
-Continue aspirin 81 mg daily, continue Atorvastatin
-After 10 AM today would pursue less than 180 systolic for blood pressure goal
-Neurologic checks NIH stroke scales
-Not recommending further neurologic imaging today
-Would plan for right carotid revascularization given I presume at this point he has symptomatic right carotid stenosis, acceptable from my POV to pursue operation 01/04
-Eventually needs PT/OT speech therapies when more participatory
Will follow
Neuro Assessment/Plan
Assessment
Patient is a 63-year-old male with a past medical history of hypertension hyperlipidemia peripheral vascular disease who presented to hospital initially for bilateral aortofemoral vascular surgery as well as femoral endarterectomy, this was on 12/29
and over the weekend patient showed signs of alcohol withdrawal which had been improving initially, on the a.m. of 01/02 patient began to show some signs of left-sided hemineglect and clear left arm significant weakness triggering a stroke alert.
Patient is not felt to be a candidate for thrombolytic/TNK therapy given serious life-threatening bleeding risks with the medication given recent major surgery.
CTA of the head neck showed no intracranial occlusion no type of intracranial thrombectomy would be an option. CTA does show a very high-grade stenosis of the right internal carotid artery which is presumed to be the cause of the patient's ischemic
stroke.
Brain MRI does confirm acute ischemic strokes within the right MCA territory highly suggestive of a right-sided carotid source. No infarcts in the posterior circulation on the left hemisphere.
Very likely and presumed at this point that patient has symptomatic right carotid stenosis
Patient showing some worsening confusion and agitation from 01/02 into the a.m. of 01/03, most likely multifactorial from testicular torsion, alcohol withdrawal and now a right-sided MCA stroke which can produce confusion and agitation.
Subjective/Objective
Subjective Data
Date of Service: January 04, 2024
Agitated overnight, has testicular torsion, requiring restraints, no fevers, patient wide awake, confused, asking for Levi
Objective Data
Vital Signs
Temp Pulse Resp BP Pulse Ox
99.9 F 130 21 192/111 94
01/04/24 06:28 01/04/24 06:30 01/04/24 06:30 01/04/24 06:30 01/04/24 06:30
Lab Results
01/04/24 04:50
01/04/24 04:50
PT 13.3 Sec (11.4-14.6) 12/31/23 05:23
INR 1.01 12/31/23 05:23
APTT 30.6 Sec (23.4-35.0) 12/31/23 05:23
Sodium 144 mmol/L (135-145) 01/04/24 04:50
Potassium 3.0 mmol/L (3.5-5.1) L 01/04/24 04:50
BUN 9 mg/dl (9-20) 01/04/24 04:50
Glucose 106 mg/dl (70-99) H 01/04/24 04:50
Calcium 8.9 mg/dl (8.4-10.2) 01/04/24 04:50
LDL Cholesterol, Calc 52 mg/dl 01/03/24 04:23
Vitamin B12 982 pg/ml (239-931) H 01/03/24 04:23
Patient Allergies
No Known Allergies Allergy (Verified 12/30/23 06:30)
LDL Level: <70, continue statin
Review of Systems
-
Unable to obtain full review of systems at this time due to: Other (Confusion agitation)
Physical Exam
-
General: Appears in Distress and Other (Middle aged man, in bilateral arm and leg restraints)
HEENT: Normocephalic
Neck: No Bruits Bilaterally
Respiratory: No Dyspnea; Negative Accessory Resp Muscle Use
Cardiac: No Murmur and Other (Tachycardic)
GI: Soft, Non-tender and Other (Incision clean dry intact on abdomen, femoral arteries bilaterally)
Psych: Confused and Agitated
Extended Neurological Exam
Attention Span & Concentration: Other (Wide awake, alert, attends and tracks examiner, some signs of left hemineglect, not very redirectable, asking for Levi repeatedly, will obey simple commands intermittently)
Memory: Unable to Assess
Tremor: Hand Tremor Absent
Involuntary Movement: None
Speech: Dysarthric; Negative Expressive Aphasia or Receptive Aphasia
Cranial Nerve II: Left Eye: Pupillary Reactivity Unremarkable, Pupillary Size Unremarkable and Other (Unable to evaluate visual grissom formally, blinks to threat on left visual field)
Cranial Nerve II: Right Eye: Pupillary Reactivity Unremarkable, Pupillary Size Unremarkable and Other (Unable to evaluate visual grissom formally, blinks to threat on left visual field)
Cranial Nerves III, IV, : Extraocular Movement: Other (Resting gaze midline, no gaze preference)
Cranial Nerve VII: Facial Symmetry: Other (Minor left facial asymmetry flattening of left nasiolabial fold)
Muscle Strength, Overall: Other (Left arm 2/5 movements seen, not lifting off bed, leg makes 3/5 efforts against gravity, evaluation limited with confusion agitation and restraints)
Touch Sensation: Withdrawal to Pain
Coordination: Unable to Assess
Data Reviewed
-
CT-A: Report Reviewed and Image Reviewed
CT Head: Report Reviewed and Image Reviewed
MRI Head: Report Reviewed and Image Reviewed
[2024-01-04] MEDS: VITAMIN B1 100 MG PO ×2 (07:21→19:54)
[2024-01-04] MEDS: NICODERM TRANSDERMAL 14 MG TRANSDERM (07:21)
[2024-01-04] MEDS: LOW STRENGTH ASPIRIN 81 MG PO (07:22)
[2024-01-04] MEDS: FOLVITE 1 MG PO (07:22)
[2024-01-04] MEDS: MUCINEX 600 MG PO ×2 (07:22→19:54)
--- NOTE | 2024-01-04 07:27 | W.PN.INTV ---
Today's Communication / Plan
Recommendations
Asp precs
O2 protocol
BDs
R CEA tomorrow
Analgesia
MSAS
Assessment
-
-
Assessment:
Mr Daniel Danielle is a 63 year old male patient scheduled for aortobifemoral bypass surgery with Dr. Velázquez for chronic limb threatening ischemia with severe multilevel peripheral arterial disease bilateral (left greater than right) lower extremities,
surgery done 12-29.
Impression:
Status post bifemoral aortic bifemoral bypass due to severe peripheral occlusive arterial disease: 12-29
Alcohol withdrawal.
R testicular torsion with vascular compromise, identified 01-02
Acute LUE weakness, 90% stenosis R carotid bulb, 01-02, acute ischemic stroke
Conditions PSYCHOLOGIST INDUSTRIAL ORGANIZATIONAL:
HTN
'Central' cord syndrome
PAD
Current Tobacco Use
ETOH abuse
PLAN:
#Severe multilevel PAD
Post op day #5 on 01-03
Vascular surgery following closely
Continue neurovascular checks per protocol
Patient is hypertensive, likely component of alcohol withdrawal
Advanced diet today as rec by Vasjordan Slenora
Discontinued Lee
Acute LUE weakness afternoon 01-[address] s/c negative
CTA head 90% stenosis of R carotid bulb
MRI brain 01-02: scattered foci of restricted diffusion on the right in the parietal occipital lobes, consistent with acute/subacute infarcts, likely embolic, nonhemorrhagic.
Avoid hypotension
Resume outpatient valsartan and then amlodipine 01-03
ASA 81 mg qd
Thrombolysis contraindicated due very recent vascular surgery
R CEA planned for 01-04
#Severe alcohol withdrawal
MSAS
Weaned off precedex drip 01-02
Was noncooperative for CT head on adm
Psychiatry consulted, recs appreciated- continue ativan IV fleeting dosis
Swollen, tender, erythematous scrotum and testicles: 01-02
U/S testicles 01-02:
R testicle: no arterial flow is demonstrated suggesting R testicular torsion, venous flow is demonstrated, R testicle is heterogeneous in echotexture measuring 4.4 x 2.7 x 4.0 cm
L testicle: normal flow, size, contour, measuring 4.8 x 3.4 x 3.4 cm, there is a 1 cm left epididymal cyst
Emergent urology 01-02 appreciated: doubt true R testicular torsion. The likelihood of meaningful blood flow mormonism given the time course and etiology is extremely remote and very high risk given current clinical situation
Rec: clinical observation
Pain management: high dose IV APAP ATC
Follow clinically, so far no evidence of cellulitis or Janneth's gangrene
No current indication for empiric atbs
Smoking cessation: Nicotine patch.
Emphysema on CT of the abdomen pelvis: Possible COPD given ongoing smoking.
Started albuterol Nebs tid and prn, guaifenesin 01-02
No current need for systemic CSs
Will benefit from outpatient pulmonary evaluation and lung cancer screening, left BCMA information in chart
Possible BPH by CT scan. Monitor for urinary retention.
DVT prophylaxis with subcu heparin
Critical care time: 40 min
D/w Abelardo Lee, Eber and Tiffanie 01-02
D/w Dr Lee 01-03, he will update family with all above issues
D/w MDT
Subjective Dataa
Subjective Data
Date of Service:
Date of Service: January 04, 2024
Chief Complaint: It Operations Manager Follow Up (Status post aortic bifemoral bypass.)
Subjective:
Events from yesterday noted, besides occasional review bilateral testicular pain with swelling erythema, right more than left. Dedicated testicular ultrasound revealed right testicular function with absence of arterial flow. Seen emergently by
urology yesterday evening, following
Developed left upper extremity weakness yesterday afternoon, MRI positive for ischemic stroke, the patient has also stenosis of the right carotid artery
Seen this morning with Dr. Lee from vascular surgery, discussed right testicular torsion findings, he will discuss findings with the family. Planning for right carotid arterectomy on January 04
Review of Systems
General: Other (Agitated, marginal historian at this time)
Objective Data
Data Reviewed
Vital Signs / I&O / Oxygen:
Vital Signs
Temp Pulse Resp BP Pulse Ox
99.9 F 130 21 192/111 94
01/04/24 06:28 01/04/24 06:30 01/04/24 06:30 01/04/24 06:30 01/04/24 06:30
Intake and Output
01/03/24 01/04/24 01/05/24
06:59 06:59 06:59
Intake Total 2432.2 / 2609.8 1178.7 / 1178.7
Output Total 1161 / 1181 1650 / 1650
Balance 1271.2 / 1428.8 -471.3 / -471.3
SaO2 94
Nasal Cannula flow liters per 2
minute
Physical Exam
General: Respiratory Distress (n), Fever (negative) and Chills (negative)
HEENT: Normocephalic and Moist Mucous Membranes
Cardiovascular: S1-S2, Regular Rhythm, Murmur (n), JVD (n), Peripheral Edema (n) and Calf Tenderness (n)
Respiratory: Wheeze (Trace), Non-Labored Respirations and Stridor (n)
GI: Soft, Non Distended, Non Tender, Normal Bowel Sounds and Other (swollen, tender testicles)
Neurology: Awake, Other (Left upper extremity weakness) and Other (Mildly agitated, on soft restraints )
Skin: Warm
Labs/Micro/Reports
Lab Data
01/04/24 04:50
01/04/24 04:50
[2024-01-04] MEDS: VENTOLIN NEBULES 2.5 MG INH ×3 (08:09→19:40)
[2024-01-04] MEDS: ATIVAN 1 MG IV ×13 (08:15→22:17)
--- NOTE | 2024-01-04 08:24 | W.PN.VS ---
Addendum entered and electronically signed by Arslan Lee III, MD 01/04/24 10:35:
This patient was seen and examined with WERNER Estrada and WERNER Wise. I agree with the history and physical exam as well as the assessment and plan. I have the following additions:
Results of scrotal ultrasound reviewed. Urology note reviewed. Appreciate input. Patient has no scrotal or testicular pain this morning.
Disoriented/delirious
4 point restraints
Inconsistently following commands
Abdominal incision is clean and dry
Right groin is now draining serous fluid
Left groin clean and dry
Will plan for incisional VAC to right groin today
Continue ICU care
Carotid plan per Dr. Velázquez
Signed:
Arslan Lee III, MD
[facility]
[phone] (xowj)
Original Note:
Today's Communication / Plan
-
Seen and assessed with Dr Lee
Discussed with Dr Velázquez
Assessment/Plan
-
Assessment: 63 year old male POD #5 Aortobifemoral bypass and right femoral endarterectomy
Plan:
CIWA
Full liquids
Hemoglobin stable
Neuro checks
CEA tomorrow with Dr Velázquez, cleared by Neuro
Incisional VAC to right groin today
Subjective Data
-
Date of Service: January 04, 2024
Pt seen at bedside this am with Dr Lee. Pt is awake and following some commands. Left arm remains weak. Pt was agitated and combative overnight, remains restrained for safety. Urology consulted overnight for possible torsion though pt appears
asymptomatic.
Objective Data
-
Vital Signs
Temp Pulse Resp BP Pulse Ox
98.3 F 116 20 192/111 94
01/04/24 07:30 01/04/24 08:16 01/04/24 08:16 01/04/24 06:30 01/04/24 06:30
Intake and Output
01/03/24 01/04/24 01/05/24
06:59 06:59 06:59
Intake Total 2432.2 / 2609.8 1178.7 / 1178.7
Output Total 1161 / 1181 1650 / 1650
Balance 1271.2 / 1428.8 -471.3 / -471.3
Intake:
Oral fluids 0 / 0
IV fluids (Total) 2102.2 / 2279.8 678.7 / 678.7
D5/0.45%NSS with KCL 10 MEQ 10 1280 / 1360 480 / 480
meq In 1,000 ml @ 80 mls/hr IV
.[id number] [facility] Rx#:[id number]
K rider 160 / 160
Nss 1,000 ml @ 110 mls/hr IV . 240 / 240
Q9H6M [facility] Rx#:[id number]
Precedex 582.2 / 599.8 38.7 / 38.7
IV piggybacks 330 / 330
Blood Product Amount Infused ( 500 / 500
mL)
Packed Rbc Leukoreduced Unit 250 / 250
[id number]
Packed Rbc Leukoreduced Unit 250 / 250
[id number]
Output:
Urine, Lee 1161 / 1181 150 / 150
Urine, Voided 1500 / 1500
Other:
How many times incontinent 1
SMALL amount urine
How many times incontinent 1
SATURATED amount urine
Lab Results
01/04/24 04:50
01/04/24 04:50
Calcium 8.9 mg/dl (8.4-10.2) 01/04/24 04:50
Magnesium 1.8 mg/dl (1.6-2.3) 01/04/24 04:50
Physical Exam
-
Alert, awake, able to reorient
Tachycardic 120's
No dyspnea on room air
Midline ABD surgical incision CDI, ABD soft
Rigth groin site with scant serious drainage
left groin site c/d/i, no drainage
both soft
BL feet warm, BL PT by doppler, Left DP by doppler
--- NOTE | 2024-01-04 08:42 | PTCARENOTE ---
Received pt this am in 4 point soft restraints, restless confused and agitated. Pt not cooperative to perform NIH appropriately, not following commands, but noted weakness on Left side. Pt also visually hallucinating. AM care completed and new IV
sites placed given leaking and painful to flush as charted. New condom cath applied with am care. Continue with MSAS, per neurology and check scaler. Pt has been requiring more ativan since last night. Otherwise please refer to flowsheet.
[2024-01-04] MEDS: KCL 270 MEQ IV ×2 (08:45→17:26)
--- NOTE | 2024-01-04 09:29 | PTCARENOTE ---
was called and given update. Plans on visiting this evening after work.
[2024-01-04] MEDS: NSS (PRESERVATIVE FREE) 0.5 ML IV ×4 (09:33→18:19)
[2024-01-04] MEDS: DULCOLAX 10 MG RECTAL (09:50)
[2024-01-04] MEDS: OFIRMEV 100 IV ×3 (10:28→22:22)
--- NOTE | 2024-01-04 12:36 | PTCARENOTE ---
Systems reviewed. Pt less agitated after 6mg ativan this shift, remains confused but will follow some simple commands but inconsistently. Assisted pt/ot with pt. Noted balance issues with sitting. Persistent difficulty with moving left leg to
side step. Left positioned in bed Dr Rob currently at bedside ultrasounding scrotum with resident. Pt c/o some soreness with abdomen palpation, elevated scrotum pt reports they felt normal prior to ultrasound.
--- NOTE | 2024-01-04 13:57 | PN.CDI ---
CDI
- -
CDI:
Physician Documentation Request
Admit Date: 12/30/23 06:06
Dear Danae Chong,
Please review the following and provide your response in the progress notes.
Clinical Indicators:
12/29 Procedure Performed:
#Aortobifemoral bypass and right femoral endarterectomy
#Estimated Blood Loss: 200cc
Laboratory Tests
12/27/23 12/30/23 12/31/23
09:27 15:40 05:23
Hgb 14.5 10.4 L D 9.2 L
01/01/24 01/02/24 01/02/24
03:37 05:00 14:27
Hgb 8.6 L 7.1 L 7.2 L
01/03/24 01/04/24
04:23 04:50
Hgb 7.8 L 11.0 L D
Eber PN, 01/02
#Will transfuse 2 units of packed red blood cells to increase hemoglobin
#...(no evidence of active bleeding).
#20 mg of Lasix in between blood transfusions.
01/02 2 units PRBCS's transfused
Based on the above, please clarify, in the progress note, which of the following is the most likely condition/diagnosis evaluated, monitored and/or treated?
Acute blood loss anemia
Abnormal lab value, clinically insignificant
Other(please specify)
Use of terms such as suspected, likely, concern for, or probable (associated with a specific diagnosis that is being evaluated, monitored, or treated as if it exists) are acceptable and can be coded in the inpatient setting, when documented at the
time of discharge.
Thank you,
Coreen Chowdary RN BSN CCDS
CDI Specialist
please contact via tiger text
Please use your independent medical judgment in providing your response.
--- NOTE | 2024-01-04 14:11 | W.PN.UPDATE ---
Update Note
Progress Note Update
CDI:
Physician Documentation Request
Admit Date: 12/30/23 06:06
Please review the following and provide your response in the progress notes.
Clinical Indicators:
12/29 Procedure Performed:
#Aortobifemoral bypass and right femoral endarterectomy
#Estimated Blood Loss: 200cc
Laboratory Tests
12/27/23 12/30/23 12/31/23
09:27 15:40 05:23
Hgb 14.5 10.4 L D 9.2 L
01/01/24 01/02/24 01/02/24
03:37 05:00 14:27
Hgb 8.6 L 7.1 L 7.2 L
01/03/24 01/04/24
04:23 04:50
Hgb 7.8 L 11.0 L D
Eber PN, 01/02
#Will transfuse 2 units of packed red blood cells to increase hemoglobin
#...(no evidence of active bleeding).
#20 mg of Lasix in between blood transfusions.
01/02 2 units PRBCS's transfused
Based on the above, please clarify, in the progress note, which of the following is the most likely condition/diagnosis evaluated, monitored and/or treated?
Acute blood loss anemia likely d/t open surgical procedure, monitored in ICU, transfused 2 units PRBC, continuing to monitor lab values.
--- NOTE | 2024-01-04 15:50 | PTCARENOTE ---
repeat labs sent as ordered
--- NOTE | 2024-01-04 15:50 | W.PN.UPDATE ---
Update Note
Progress Note Update
Note patient was seen and evaluated earlier by me. I did call his and update her with progress/plan. Discussed continued plan for right carotid endarterectomy for tomorrow. Discussed also urologic findings (right testicular) which she was
already made aware of by the urologist.
--- NOTE | 2024-01-04 16:11 | PTCARENOTE ---
Pt have periods where he dozes, wakes up restless, confused. Agitated about restraint but pt remains impulsive, trying to get out of bed, 'put my shoes on, take my shoes off. Remains weak on left side. Less agitated then am, but still requiring
frequent ativan. Otherwise no changes.
[2024-01-04 16:23] LABS: Blood Urea Nitrogen 11 mg/dl (9-20); Calcium 8.6 mg/dl (8.4-10.2); Carbon Dioxide 25 mmol/L (22-30); Chloride 109 mmol/L (98-107); Estimated Creatinine Clearance 94 ml/min; Glucose 140 mg/dl (70-99); Magnesium 1.7 mg/dl (1.6-2.3); Phosphorus 3.2 mg/dl (2.5-4.5); Potassium 3.1 mmol/L (3.5-5.1); Sodium 143 mmol/L (135-145); eGFR > 60.00
--- NOTE | 2024-01-04 16:30 | PTCARENOTE ---
repeat labs reviewed with Dr Rob/resident. Mag and kcl to be ordered.
[2024-01-04] MEDS: LIPITOR 20 MG PO (17:25)
[2024-01-04] MEDS: DIOVAN 160 MG PO (17:25)
[2024-01-04] MEDS: MAGNESIUM SULFATE 50 IV (17:25)
[2024-01-04] MEDS: NORVASC 5 MG PO (17:26)
[2024-01-04] MEDS: LOVENOX 40 MG SC (17:26)
[2024-01-04] MEDS: D5/0.45%NSS with KCL 10 MEQ 1000 IV (17:32)
[2024-01-04] MEDS: NSS (PRESERVATIVE FREE) 10 ML IV (19:47)
--- NOTE | 2024-01-04 20:00 | PTCARENOTE ---
rec`d pt at 1900 awake, laying in bed. 4 point restrained. still left sided weakness, but improving. confused conversation. having to reorient pt. knows self and year after asking a few times. NIH continued. [facility] is difficult to get a true number
since pt is not cooperative at all times. HR ranges anywhere between 90s-130s. Doppler pulses. coarse lung sounds, POX 95%. round abdomen, with incision closed w/ tabatha. c/d/i. condom cath in place, #25 draining yellow urine. 20 left and rt
forearm. prn ativan continuously given for MSAS. prn pain meds too. call hernández in reach. safe environment maintained. PCT in pt room for 1-1.
[2024-01-05] VITALS (19 sets, daily range): BP systolic 88–168; BP diastolic 41–120; BMI 24.3
--- NOTE | 2024-01-05 | PTCARENOTE ---
prn ativan given several times. safe environment maintained.
[2024-01-05] MEDS: ATIVAN 1 MG IV ×5 (00:18→23:05)
[2024-01-05] MEDS: NSS (PRESERVATIVE FREE) 1 ML IV ×3 (00:19→23:13)
--- NOTE | 2024-01-05 04:00 | PTCARENOTE ---
prn ativan given several times. safe environment maintained.
[2024-01-05 04:28] LABS: Hemoglobin 10.1 g/dL (13.0-18.0); Mean Corp Hgb Conc. 36.1 g/dL (33.0-37.0); Mean Corpuscular Hgb 31.5 pg (27.0-31.0); Mean Corpuscular Volume 87.2 fL (80.0-94.0); Mean Platelet Volume 9.4 fL (7.4-10.4); Platelet Count 347 10^3/uL (130-400); Red Blood Cell Count 3.21 10^6/uL (4.70-6.10); Red Cell Dist. Width 14.7 % (11.5-14.5); White Blood Cell Count 12.9 10^3/uL (4.8-10.8)
[2024-01-05 04:58] LABS: Blood Urea Nitrogen 8 mg/dl (9-20); Calcium 8.6 mg/dl (8.4-10.2); Carbon Dioxide 24 mmol/L (22-30); Chloride 108 mmol/L (98-107); Estimated Creatinine Clearance 110 ml/min; Glucose 117 mg/dl (70-99); Magnesium 2.1 mg/dl (1.6-2.3); Phosphorus 3.3 mg/dl (2.5-4.5); Potassium 3.6 mmol/L (3.5-5.1); Sodium 141 mmol/L (135-145); eGFR > 60.00
[2024-01-05] MEDS: OFIRMEV 100 IV ×4 (05:00→23:04)
--- NOTE | 2024-01-05 05:25 | DOWNTIME ---
There was a [employer] Client Animal Technician Downtime on 01/05/2024 from 0100 to 01/05/2024 at 0337. Downtime documentation of patient's care, including medication administrations, has been reconciled in the electronic record per guidelines. Refer to the
patient's paper chart under the miscellaneous tab to see printed paper medication records and downtime forms.
[2024-01-05] MEDS: KCL 270 MEQ IV (05:49)
--- NOTE | 2024-01-05 07:22 | W.PN.NEURO.1 ---
Today's Communication / Plan
-
-Aspirin
-NIH and neurologic checks
-BP control after CEA, goal less than 180 for maximum systolic
-Continue treating alcohol withdrawal
-Aspiration precautions
-Planned for CEA of symptomatic right carotid artery
Neuro Assessment/Plan
Assessment
Patient is a 63-year-old male with a past medical history of hypertension hyperlipidemia peripheral vascular disease who presented to hospital initially for bilateral aortofemoral vascular surgery as well as femoral endarterectomy, this was on 12/29
and over the weekend patient showed signs of alcohol withdrawal which had been improving initially, on the a.m. of 01/02 patient began to show some signs of left-sided hemineglect and clear left arm significant weakness triggering a stroke alert.
Patient is not felt to be a candidate for thrombolytic/TNK therapy given serious life-threatening bleeding risks with the medication given recent major surgery.
CTA of the head neck showed no intracranial occlusion no type of intracranial thrombectomy would be an option. CTA does show a very high-grade stenosis of the right internal carotid artery which is presumed to be the cause of the patient's ischemic
stroke.
Brain MRI does confirm acute ischemic strokes within the right MCA territory highly suggestive of a right-sided carotid source. No infarcts in the posterior circulation on the left hemisphere.
Very likely and presumed at this point that patient has symptomatic right carotid stenosis
Patient showing some worsening confusion and agitation from 01/02 into the a.m. of 01/03, most likely multifactorial from testicular torsion, alcohol withdrawal and now a right-sided MCA stroke which can produce confusion and agitation.
Subjective/Objective
Subjective Data
Date of Service: January 05, 2024
No acute events, agitation is a bit better, no seizures, still with left arm weakness
Objective Data
Vital Signs
Temp Pulse Resp BP Pulse Ox
98.3 F 83 16 160/73 94
01/05/24 07:02 01/05/24 04:00 01/05/24 04:00 01/04/24 22:10 01/05/24 04:00
Lab Results
01/05/24 04:20
01/05/24 04:20
PT 13.3 Sec (11.4-14.6) 12/31/23 05:23
INR 1.01 12/31/23 05:23
APTT 30.6 Sec (23.4-35.0) 12/31/23 05:23
Sodium 141 mmol/L (135-145) 01/05/24 04:20
Potassium 3.6 mmol/L (3.5-5.1) 01/05/24 04:20
BUN 8 mg/dl (9-20) L 01/05/24 04:20
Glucose 117 mg/dl (70-99) H 01/05/24 04:20
Calcium 8.6 mg/dl (8.4-10.2) 01/05/24 04:20
Phosphorus 3.3 mg/dl (2.5-4.5) 01/05/24 04:20
LDL Cholesterol, Calc 52 mg/dl 01/03/24 04:23
Vitamin B12 982 pg/ml (239-931) H 01/03/24 04:23
Patient Allergies
No Known Allergies Allergy (Verified 12/30/23 06:30)
Review of Systems
-
History Source: Patient
All other systems: Reviewed and negative
Constitutional: No Symptoms
EENT: No Symptoms Reported
Respiratory: No Symptoms
Cardiac: No Symptoms
Abdomen/GI: No Symptoms
Genitourinary: No Symptoms
Musculoskeletal: No Symptoms
Skin: No Symptoms
Neuro: Weakness
Endocrine: No Symptoms
Hematologic / Lymphatic: No Symptoms
Allergy / Immunology: No Symptoms
Physical Exam
-
General: Comfortable
Eyes: No Ptosis
HEENT: Normocephalic
Neck: No Bruits Bilaterally
Respiratory: Clear to Auscultation
Cardiac: Regular Rhythm
GI: Normal Bowel Sounds
Skin: Unremarkable
Extremities: No Clubbing
Psych: Unremarkable
Extended Neurological Exam
Mood & Affect: Mood Unremarkable and Affect Unremarkable
Attention Span & Concentration: Other (Drowsy, conversational, obey commands)
Memory: Reduced
Tremor: Hand Tremor Absent
Involuntary Movement: None
Speech: Dysarthric
Cranial Nerve II: Left Eye: Pupillary Reactivity Unremarkable, Pupillary Size Unremarkable and Other (Detects in left visual field)
Cranial Nerve II: Right Eye: Pupillary Reactivity Unremarkable, Pupillary Size Unremarkable and Other (Detects in left visual field)
Cranial Nerves III, IV, : Extraocular Movement: Extraocular Movement Full in all Directions
Cranial Nerve VII: Facial Symmetry: Other (Minimal left facial droop)
Muscle Strength, Overall: Other (Left arm 3/5 efforts, left leg 4/5 hip flexion)
Pronator Drift: Drift in Left Upper Extremity
Touch Sensation: Withdrawal to Pain
--- NOTE | 2024-01-05 07:29 | W.PN.INTV ---
Today's Communication / Plan
Recommendations
Aspiration precautions
As needed albuterol
NRT
Outside of antibiotics
Right CEA today
Assessment
-
-
Assessment:
Mr Daniel Danielle is a 63 year old male patient scheduled for aortobifemoral bypass surgery with Dr. Velázquez for chronic limb threatening ischemia with severe multilevel peripheral arterial disease bilateral (left greater than right) lower extremities,
surgery done 12-29.
Impression:
Status post bifemoral aortic bifemoral bypass due to severe peripheral occlusive arterial disease: 12-29
Alcohol withdrawal.
R testicular torsion with vascular compromise, identified 01-02
Acute LUE weakness, 90% stenosis R carotid bulb, 01-02, acute ischemic stroke
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
HTN
'Central' cord syndrome
PAD
Current Tobacco Use
ETOH abuse
PLAN:
Severe multilevel PAD
Post op day #6 on 01-04
Vascular surgery following closely
Continue neurovascular checks per protocol
Patient is hypertensive, likely compounded by alcohol withdrawal
Advanced diet today as rec by Vasc Sx
Discontinued Lee
Acute LUE weakness afternoon 01-[address] s/c negative
CTA head 90% stenosis of R carotid bulb
MRI brain 01-02: scattered foci of restricted diffusion on the right in the parietal occipital lobes, consistent with acute/subacute infarcts, likely embolic, nonhemorrhagic.
Avoid hypotension
Resume outpatient valsartan and then amlodipine 01-03
ASA 81 mg qd
Thrombolysis contraindicated due very recent vascular surgery
R CEA planned for 01-04
Severe alcohol withdrawal
MSAS
As needed Ativan IV
Weaned off precedex drip 01-02
Was non[address] for CT head on adm
Psychiatry consulted, recs appreciated- continue ativan IV fleeting doses
Swollen, tender, erythematous scrotum and testicles: 01-02
U/S testicles 01-02:
R testicle: no arterial flow is demonstrated suggesting R testicular torsion, venous flow is demonstrated, R testicle is heterogeneous in echotexture measuring 4.4 x 2.7 x 4.0 cm
L testicle: normal flow, size, contour, measuring 4.8 x 3.4 x 3.4 cm, there is a 1 cm left epididymal cyst
Emergent urology 01-02 appreciated: doubt true R testicular torsion. The likelihood of meaningful blood flow baptism given the time course and etiology is extremely remote and very high risk given current clinical situation
Rec: clinical observation only, no surgical indication, stated will follow peripherally since after January 04
Pain management: high dose IV APAP ATC, continue for now
Follow clinically, so far no evidence of cellulitis or Janneth's gangrene
No current indication for empiric atbs
Smoking cessation: Nicotine patch.
Emphysema on CT of the abdomen pelvis: Possible COPD given ongoing smoking.
Started albuterol Nebs tid and prn, guaifenesin 01-02
Change O2 nebs to as needed only for now on January 04
No current need for systemic CSs
Will benefit from outpatient pulmonary evaluation and lung cancer screening, left BCMA information in chart
Possible BPH by CT scan. Monitor for urinary retention.
DVT prophylaxis with subcu heparin
Critical care time: 40 min
D/w Eber Sibley and Tiffanie 01-02
D/w Dr Lee 01-03, he will update family with all above issues
D/w MDT
Subjective Dataa
Subjective Data
Date of Service:
Date of Service: January 05, 2024
Chief Complaint: Practice Advisor Follow Up (Status post aortic bifemoral bypass.)
Subjective:
No major events reported overnight
Apparently, testicular pain much improved since on IV Tylenol [id number]
Seemingly less agitated than before but still requiring frequent use of Ativan IV
Scheduled for right total endarterectomy today about around
Review of Systems
General: Other (Marginal historian, still intermittently mildly agitated)
Objective Data
Data Reviewed
Vital Signs / I&O / Oxygen:
Vital Signs
Temp Pulse Resp BP Pulse Ox
98.3 F 83 16 160/73 94
01/05/24 07:02 01/05/24 04:00 01/05/24 04:00 01/04/24 22:10 01/05/24 04:00
Intake and Output
01/04/24 01/05/24 01/06/24
06:59 06:59 06:59
Intake Total 1178.7 / 1178.7 2362.5 / 2362.5
Output Total 1650 / 1650 1650 / 1650
Balance -471.3 / -471.3 712.5 / 712.5
SaO2 94
Nasal Cannula flow liters per 2
minute
Physical Exam
General: Respiratory Distress (n)
HEENT: Normocephalic and Moist Mucous Membranes
Cardiovascular: S1-S2, Regular Rhythm, Murmur (n), JVD (n), Peripheral Edema (n) and Calf Tenderness (n)
Respiratory: Rhonchi (Few scattered), Non-Labored Respirations and Stridor (n)
GI: Soft, Non Distended, Non Tender, Normal Bowel Sounds and Other (Improved swelling, improved tenderness of testicles)
Neurology: Awake, Other (Left upper extremity weakness) and Other (Mildly agitated, on soft restraints )
Skin: Warm
Labs/Micro/Reports
Lab Data
01/05/24 04:20
01/05/24 04:20
--- NOTE | 2024-01-05 07:55 | W.PN.URO.CBU ---
Today's Communication / Plan
-
observe
Assessment / Plan
-
ischemia of right testicle
reviewed with dr whipple
at this point- no surgical indications
will follow peripherally at this point
Diagnosis
-
Date of Service: January 05, 2024
-
Patient Diagnosis:
ischemic right testicle
Subjective
-
pt still confused- but resting
he denies any penile or testicular pain
Objective
-
Vital Signs
Temp Pulse Resp BP Pulse Ox
98.3 F 83 16 160/73 94
01/05/24 07:02 01/05/24 04:00 01/05/24 04:00 01/04/24 22:10 01/05/24 04:00
Intake and Output
01/04/24 01/05/24 01/06/24
06:59 06:59 06:59
Intake Total 1178.7 / 1178.7 2362.5 / 2362.5
Output Total 1650 / 1650 1650 / 1650
Balance -471.3 / -471.3 712.5 / 712.5
Intake:
Oral fluids 0 / 0 540 / 540
IV fluids (Total) 678.7 / 678.7 1052.5 / 1052.5
D5/0.45%NSS with KCL 10 MEQ 10 480 / 480
meq In 1,000 ml @ 80 mls/hr IV
.[id number] [facility] Rx#:[id number]
D5/0.45%NSS with KCL 10 MEQ 10 960 / 960
meq In 1,000 ml @ 80 mls/hr IV
.[id number] [facility] Rx#:[id number]
K rider 160 / 160 67.5 / 67.5
Precedex 38.7 / 38.7
mag 25 / 25
IV piggybacks 770 / 770
Blood Product Amount Infused ( 500 / 500
mL)
Packed Rbc Leukoreduced Unit 250 / 250
[id number]
Packed Rbc Leukoreduced Unit 250 / 250
[id number]
Output:
Urine, Lee 150 / 150 900 / 900
Urine, Voided 1500 / 1500 750 / 750
Other:
How many times incontinent 1
SMALL amount urine
How many times incontinent 1
SATURATED amount urine
Laboratory Results
01/05/24 04:20
01/05/24 04:20
Physical Exam
-
General - no acute distress
Genitalia - scrotal skin normal
right testicle midly enlarged- but less firm and not tender today
[2024-01-05] MEDS: VENTOLIN NEBULES 2.5 MG INH (08:10)
[2024-01-05] MEDS: D5/0.45%NSS with KCL 10 MEQ 1000 IV ×2 (08:17→23:04)
[2024-01-05] MEDS: MUCINEX 600 MG PO (08:20)
[2024-01-05] MEDS: LOW STRENGTH ASPIRIN 81 MG PO (08:20)
[2024-01-05] MEDS: FOLVITE 1 MG PO (08:20)
[2024-01-05] MEDS: VITAMIN B1 100 MG PO (08:20)
[2024-01-05] MEDS: DILAUDID 0.5 MG IV (08:21)
[2024-01-05] MEDS: NICODERM TRANSDERMAL 14 MG TRANSDERM (08:22)
[2024-01-05] MEDS: BACTROBAN 2% OINTMENT 1 APPLIC NASAL (08:48)
[2024-01-05] MEDS: PERIDEX 0.12% ORAL RINSE 15 ML PO (08:49)
--- NOTE | 2024-01-05 08:58 | W.PN.VS ---
Today's Communication / Plan
-
See plan below for today 01/05/2024.
Assessment/Plan
-
Assessment: 63 year old male POD #6 Aortobifemoral bypass and right femoral endarterectomy
Plan:
� For right carotid endarterectomy today. I discussed extensively with the patient's over the phone yesterday. She understands all wishes to proceed. Discussed with patient as well and he is amenable (though he is still slightly confused).
� Stable from a peripheral arterial/postoperative aortobifemoral bypass. Continue incisional VAC right groin. Will change that tomorrow.
� Likely will reinitiate some gentle diuresis tomorrow based on global I's and O's for this visit.
-
Total Time Spent with Patient (in minutes): 10
Subjective Data
-
Date of Service: January 05, 2024
Seen and examined. Patient without significant complaints. Still remains slightly confused.
Objective Data
-
Vital Signs
Temp Pulse Resp BP Pulse Ox
98.3 F 81 16 157/87 99
01/05/24 07:02 01/05/24 08:14 01/05/24 08:14 01/05/24 07:54 01/05/24 08:14
Intake and Output
01/04/24 01/05/24 01/06/24
06:59 06:59 06:59
Intake Total 1178.7 / 1178.7 2362.5 / 2510.0 295.0 / 295.0
Output Total 1650 / 1650 1650 / 1650
Balance -471.3 / -471.3 712.5 / 860.0 295.0 / 295.0
Intake:
Oral fluids 0 / 0 540 / 540
IV fluids (Total) 678.7 / 678.7 1052.5 / 1200.0 295.0 / 295.0
D5/0.45%NSS with KCL 10 MEQ 10 480 / 480
meq In 1,000 ml @ 80 mls/hr IV
.[id number] [facility] Rx#:[id number]
D5/0.45%NSS with KCL 10 MEQ 10 960 / 1040 160 / 160
meq In 1,000 ml @ 80 mls/hr IV
.[id number] [facility] Rx#:[id number]
K rider 160 / 160 67.5 / 135.0 135.0 / 135.0
Precedex 38.7 / 38.7
mag 25 / 25
IV piggybacks 770 / 770
Blood Product Amount Infused ( 500 / 500
mL)
Packed Rbc Leukoreduced Unit 250 / 250
[id number]
Packed Rbc Leukoreduced Unit 250 / 250
[id number]
Output:
Urine, Lee 150 / 150 900 / 900
Urine, Voided 1500 / 1500 750 / 750
Other:
How many times incontinent 1
SMALL amount urine
How many times incontinent 1
SATURATED amount urine
Lab Results
01/05/24 04:20
01/05/24 04:20
Calcium 8.6 mg/dl (8.4-10.2) 01/05/24 04:20
Phosphorus 3.3 mg/dl (2.5-4.5) 01/05/24 04:20
Magnesium 2.1 mg/dl (1.6-2.3) 01/05/24 04:20
Physical Exam
-
Afebrile. Systolic blood pressure 150s, heart rate 80s.
Awake and alert.
Abdomen soft, nondistended, nontender. Incision clean dry and intact.
Groins flat bilaterally. Left groin incision clean dry and intact. Right groin incisional VAC in place. Minimal if at all drainage. No erythema in either groins. No hematomas. Palpable femoral pulses bilaterally.
Feet are both pink and warm and well-perfused with good dopplerable signals.
Stable left upper extremity neurologic exam with weakness.
Labs reviewed.
--- NOTE | 2024-01-05 09:21 | PTCARENOTE ---
Received pt this am restless confused, speech nonsensical at times. Still weak on l side, but more movement then yesterday. Pt is slow to answer questions and most times does not answer. Follows commands inconsistently. MSAS continues. R groin
wound remains on wound vac with minimal serous drainage. All other wounds open to air. Condom cath in place. Otherwise please refer to flowsheets.
--- NOTE | 2024-01-05 11:31 | W.SUR.PREOP ---
Pre-Operative Surgical Note
-
I have examined this patient prior to the performance of the scheduled procedure.
The patient's condition is unchanged from the time of the current History and
Physical and the patient is able to undergo the scheduled procedure.
I discussed with patient's over the phone (she is the POA given that the patient has slight confusion still). Discussed procedure right carotid endarterectomy in detail. Discussed technical details of the procedure as well as anticipated
outcomes. Discussed risk including but not limited to bleeding, infection, cardiac complications/RI, cranial nerve injury (slightly heightened risk given patient has prior submandibular surgery), stroke (on the order of about 2 to 3% in the
symptomatic setting). I did discuss that with prior submandibular surgery scarring could be a concern. However I would favor surgery over stenting given the bulky nature of the plaque I do not think stent expansion would be reasonable. She
understands all and wishes for us to proceed.
--- NOTE | 2024-01-05 12:34 | PTCARENOTE ---
Report given to Jacquelyn from vascular sx, pt picked up for OR around noon. called and made aware that pt went to OR and will be in after work today.
[2024-01-05] MEDS: ANCEF 10 IV (12:50)
--- NOTE | 2024-01-05 13:45 | W.SUR.POST ---
Surgical Immediate Post Op
Note
Pre Op Diagnosis: Carotid stenosis
Post Op Diagnosis: Same
Procedure Performed: Right carotid endarterectomy with bovine pericardial patch angioplasty and EEG monitoring
Primary Surgeon: Eber
Assist: Jason CALDERA
Anesthesia: General
Estimated Blood Loss: 20 cc
Fluids: See anesthesia flowsheet
Drains/Shunts: None
Specimens/Cultures: Right carotid plaque
Doppler/Duplex/Angio (Y/N): Y
Complications: None
Operative Findings: Extensive plaque
[2024-01-05 14:02] LABS: ACT-LR - POC 199 Seconds (116-155)
[2024-01-05 14:10] LABS: ACT-LR - POC 224 Seconds (116-155)
--- NOTE | 2024-01-05 15:02 | W.PN.UPDATE ---
Update Note
Progress Note Update
attempted to see patient but he was in surgery will look in on him tomorrow.
--- NOTE | 2024-01-05 15:17 | W.PN.UPDATE ---
Update Note
Progress Note Update
R CEA performed. Bulky extensive plaque. Long patch angioplasty needed. NO EEG changes at any time (no shunt placed therefore). SSEP's weak at baseline bilaterally - no change noted during clamp time.
Patient awoke moving RUE and RLE fully . L UE not moving well and LLE not moving initially. After several minutes recovery - patient now moving left foot (toes) and bending knee to command - but still weak.
Will obtain stat CTA now.
Possible rememberance type phenomenon.
But will obtain stat CT/CTA to rule out bleed as well as any obvious arterial issue.
Discussed with neurologist - agrees with plan.
--- NOTE | 2024-01-05 15:49 | W.PN.UPDATE ---
Update Note
Progress Note Update
CTA reviewed - widely patent endarterectomy site. ICA widely patent. Re-assessed and now patient with signficantly improved LLE movement, AND now LUE able to move (lifted arm to command against gravity).
Cont monitoring - seen by neurology and discussed with them - agree with plan.
Updated .
[2024-01-05 16:10] LABS: Hematocrit 27.4 % (39.0-52.0); Hemoglobin 9.5 g/dL (13.0-18.0); Mean Corp Hgb Conc. 34.7 g/dL (33.0-37.0); Mean Corpuscular Hgb 31.8 pg (27.0-31.0); Mean Corpuscular Volume 91.6 fL (80.0-94.0); Mean Platelet Volume 9.3 fL (7.4-10.4); Platelet Count 301 10^3/uL (130-400); Red Blood Cell Count 2.99 10^6/uL (4.70-6.10); Red Cell Dist. Width 14.7 % (11.5-14.5)
--- NOTE | 2024-01-05 16:13 | OR.RPT ---
Operative Report
Operative Report
PROCEDURE DATE: 01/05/2024
Preoperative diagnosis: Symptomatic critical right carotid stenosis with bulky near occlusive plaque.
Postoperative diagnosis: Same
Procedure: Right carotid endarterectomy with bovine pericardial patch angioplasty and intraoperative EEG/SSEP monitoring.
Surgeon: Eber
Lpn Or Medical Assistant: MERRY Gomez required for all aspects of procedure including traction/countertraction, following of suture line, assistance with closure.
Complications: None
Anesthesia: General
Indications for procedure:
Patient underwent recent aortobifemoral artery bypass. During his recovery phase while in the hospital he had acute episode of left arm (and lesser so leg) weakness. Found to have acute infarcts. CT angiogram imaging demonstrated severe near
occlusive bulky right internal carotid artery plaque. Risk/benefit/alternatives of revascularization were discussed with the patient and his . They understood all wish to proceed.
Description of procedure:
Patient was identified brought to the operating room placed on the table in supine position. After the adequate administration of anesthesia and perioperative antibiotics he was prepped and draped in the standard surgical fashion. A standard
preoperative timeout was undertaken and everybody was in agreement the plan. A standard longitudinal incision was made in the right neck that was carried through the skin subcutaneous tissue. Using the electrocautery dissection was carried through
the platysma muscle layer and then alongside the anterior medial border of the sternocleidomastoid muscle. Then using a combination of sharp dissection with the Metzenbaum scissors and electrocautery I dissected along the anterior medial border of
the internal jugular vein. The common facial vein branch was ligated between silk ties and then divided. I then deepened my retraction. There was an additional jugular vein branch more distally (cephalad) and the incision site that was carefully
dissected and ligated between silk ties and then divided. The common carotid artery was identified and carefully dissected away from the surrounding structures take great care to avoid any injury to the structures. A vessel loop was passed around
it which was double looped, but not yet tightened. Note the vagus nerve was protected from harm's way. I then continued my dissection up the common carotid artery to the bulb staying only on the anterior surface of the carotid artery. The tissues
overlying were somewhat challenging and scarred like in nature. Patient had had prior submandibular lymph node biopsy or some other submandibular procedure. Unclear if this was scarring related to that. Regardless great care was taken and
dissections. Then I carried the dissection up to the internal carotid artery and then to the distal internal carotid artery. I had to carefully dissect the tissues as there was some almost scarring like tissues around the carotid (either
inflammatory secondary to plaque or alternatively related to prior surgery). I identified where it was soft and carefully circumferentially dissected the internal carotid artery with minimal mobilization and passed a vessel loop around it. Note,
it was soft beyond the heavy bulky plaque, but I could palpate a lip of additional plaque there and therefore I dissected beyond this until it was circumferentially fully soft. Note the hypoglossal nerve was not visualized in her field and felt to
be located more distally. The patient was given an appropriate dose of heparin 6500 units (and ACT levels were monitored during the case). Next I dissected the anterior surface of the external carotid artery and superior thyroid branches. These
were then carefully circumferentially dissected with minimal mobilization and vessel loops passed around these which were double looped but not yet tightened. After 3 minutes of heparin circulation time and confirmation of optimization of the
blood pressure with my anesthesiology colleagues, I clamped the distal internal carotid artery where it was soft. There was no immediate EEG or SSEP changes. After 1 minute of test clamp time there was no changes noted. Therefore at this point,
the vessel loops on the external carotid artery and superior thyroid branches were tightened and the common carotid artery was clamped where it was soft proximally. An arteriotomy was made on the common carotid artery with an 11 blade and extended
using a Powers scissor. Was extended the arteriotomy onto the mid to distal internal carotid artery. There was very heavy bulky near occlusive plaque with central softer/friable component, but just overall a diffusely bulky plaque. A [place] was
then used to endarterectomized the plaque. An endarterectomy plane was created, and the plaque was then endarterectomized. Distally I feathered the plaque out to a nice reasonable endpoint in the distal internal carotid artery. Next I
endarterectomized the intima back to normal intima in the common carotid artery, and the intima was cut flush there. I then grasped the plaque and everted plaque out of the origin of the external carotid artery. The plaque was then sent off for
specimen. The origin of the external carotid artery was carefully visualized and any fine debris were removed with fine forceps. Proximal and distal endpoints were then carefully inspected. Any fine debris was removed with fine forceps, and the
intima was noted to be nicely adherent proximally distally. Next any fine debris were removed throughout the endarterectomy bed with fine forceps. The proximal endpoint was noted to have some additional cheeselike plaque in the wall. Therefore
had to dissect more caudad and extend my incision. I then move my clamp more proximally on the common carotid artery. I then was able to get to a better endpoint on the common carotid artery. There was still some plaque on the anterior medial
wall. But it did not cause any luminal stenosis and appeared to be stable in the line of flow. My distal endpoint was nicely adherent at this point. I then flushed heparinized saline. I was very satisfied. Then, I used a bovine pericardial
patch to sew a patch angioplasty with a running 6-0 Prolene suture. Note this was a long patch angioplasty using the entire length of the 8 cm patch. Prior to completing and tying down my suture line, I backbled sequentially each branch and
reclamped each branch prior to unclamping the next branch. I then irrigated with heparinized saline. Then I completed and tied down my suture line. We then restored flow in the common carotid and external carotid arteries. Finally, we released
flow in the internal carotid artery. There was excellent pulsatile flow in all 3 vessels. There was an excellent Doppler signal in the internal carotid artery distal to the patch with a good normal low resistance Doppler signal. A few 6-0
Prolene [id number] sutures were placed along any bleeding points along the suture line. Protamine was given to reverse the heparin. Hemostasis was completely achieved. We then irrigated and confirmed full hemostasis. We then closed in
layers with 2-0 Vicryl layer to reapproximate the sternocleidomastoid muscle, followed by 3-0 Vicryl platysma muscle running layer, followed by 4 Monocryl subcuticular stitch. Dermabond was applied. Upon emergence from anesthesia, the patient was
moving his right upper extremity and lower extremity without any difficulty. Left upper and lower extremities were not moving very well. There have been no EEG changes throughout the entire case. I did confirm this with our neurophysiologist that
through the clamp time all was stable. After giving him some recovery period of a few minutes, we noted improvement in the left lower extremity movement. However to be safe we obtained a stat CT angiogram. This demonstrated widely patent
endarterectomy site and intracranial flow. No evidence of any cut off or new embolic or occlusive problems. Patient was transported to the ICU in stable condition with continuing to improve neurologic exam. By the time he was in the ICU he was
moving his left lower extremity almost to baseline, and was able to now move his left upper extremity as well. Tongue was midline as well.
--- NOTE | 2024-01-05 16:20 | PTCARENOTE ---
pt currently working with speech therapy
[2024-01-05 16:22] LABS: Blood Urea Nitrogen 8 mg/dl (9-20); Carbon Dioxide 23 mmol/L (22-30); Chloride 107 mmol/L (98-107); Estimated Creatinine Clearance 94 ml/min; Glucose 139 mg/dl (70-99); Potassium 3.9 mmol/L (3.5-5.1); Sodium 137 mmol/L (135-145); eGFR > 60.00
[2024-01-05] MEDS: ATIVAN IV (16:28)
[2024-01-05] MEDS: NSS (PRESERVATIVE FREE) IV (16:28)
[2024-01-05 16:46] LABS: INR 1.09; PT 14.1 Sec (11.4-14.6)
[2024-01-05 16:47] LABS: APTT 32.9 Sec (23.4-35.0)
--- NOTE | 2024-01-05 16:51 | PTOTSP ---
Dysphagia Evaluation
Patient presents with signs concerning for oral/pharyngeal dysphagia and concern for aspiration with thin liquids. He has acute risk factors for dysphagia (i.e., brief intubations for OR x2 for vascular surgeries, R MCA CVA, alcohol withdrawal).
Recommend:
1. NPO
2. Aspiration Risk Hydration Protocol - ice chips after oral care with nursing supervision
3. Medications - essential meds crushed in puree
4. Will re-evaluate swallowing and determine if/when further objective assessment such as video swallow study warranted.
5. Will assess speech/language/cognition when acute factors (i.e., recent GA, withdrawal) no longer impacting.
[2024-01-05] MEDS: PLAVIX 75 MG PO (17:09)
[2024-01-05] MEDS: LIPITOR 20 MG PO (17:09)
[2024-01-05] MEDS: LOVENOX 40 MG SC (17:09)
[2024-01-05] MEDS: NORVASC PO (17:11)
[2024-01-05] MEDS: DIOVAN PO (17:11)
--- NOTE | 2024-01-05 17:17 | PTCARENOTE ---
Received pt from OR shortly before 4pm. Pt anahy, following commands, L remains weak . pt c/o pressure in front of head and soreness in throat. Drowsy, but when he wakes up asking to go home. Settles with redirection currently. Speech will reeval
in am, meds ok in applesauce, ice chips with staff. Pt placed on 2lnc for sats dropping in to 80s. Otherwise please refer to flowsheet.
[2024-01-05] MEDS: MUCINEX PO (19:33)
[2024-01-05] MEDS: VITAMIN B1 PO (19:33)
[2024-01-05] MEDS: COMPAZINE 5 MG IV (19:34)
--- NOTE | 2024-01-05 20:00 | PTCARENOTE ---
rec`d pt at 1900, pt laying in bed, with at bedside. pt drowsy post op but awakens to verbal stimuli. pt pleasant. complains of headache, prn given (see MAR). NIH done at bedside with previous RN. pt`s previous symptoms continuing to improve.
q1 checks continued. AAOx3. follows commands. afebrile. SR to SB on monitor. RA POX 94%. coarse BS. round abdomen. #25 condom cath draining christopher urine. Rt neck open to air w/ surgi glue. wound vac on groin at 75. left r a line. 20 rt Ac and 20 left
FA. maintaining SBP 100-160 per MD orders. restraints. 1-1. call hernández in reach. safe environment maintained.
[2024-01-06] VITALS (20 sets, daily range): BP systolic 100–154; BP diastolic 47–89; PULSE 65; BMI 24.3
--- NOTE | 2024-01-06 | PTCARENOTE ---
pt reassessed. no changes in pt assessment. call hernández in reach.
[2024-01-06] MEDS: OFIRMEV 100 IV (04:32)
[2024-01-06 04:36] LABS: Hematocrit 26.4 % (39.0-52.0); Hemoglobin 8.8 g/dL (13.0-18.0); Mean Corp Hgb Conc. 33.3 g/dL (33.0-37.0); Mean Corpuscular Hgb 30.6 pg (27.0-31.0); Mean Corpuscular Volume 91.7 fL (80.0-94.0); Mean Platelet Volume 9.8 fL (7.4-10.4); Platelet Count 339 10^3/uL (130-400); Red Blood Cell Count 2.88 10^6/uL (4.70-6.10); Red Cell Dist. Width 14.4 % (11.5-14.5); White Blood Cell Count 15.7 10^3/uL (4.8-10.8)
--- NOTE | 2024-01-06 04:37 | PTCARENOTE ---
pt reassessed. no changes in pt assessment. call hernández in reach. pt still a 1-1.
[2024-01-06 04:55] LABS: INR 1.15; PT 14.8 Sec (11.4-14.6)
[2024-01-06 04:56] LABS: APTT 29.1 Sec (23.4-35.0)
[2024-01-06 05:10] LABS: Blood Urea Nitrogen 15 mg/dl (9-20); Calcium 8.1 mg/dl (8.4-10.2); Carbon Dioxide 22 mmol/L (22-30); Chloride 110 mmol/L (98-107); Estimated Creatinine Clearance 73 ml/min; Glucose 157 mg/dl (70-99); Potassium 4.2 mmol/L (3.5-5.1); Sodium 138 mmol/L (135-145); eGFR > 60.00
--- NOTE | 2024-01-06 07:43 | W.PN.INTV ---
Today's Communication / Plan
Recommendations
prn IV APAP
prn ativan
OOB as tolerated
ASA/plavix
Telem when ok with vasc sx
Assessment
-
-
Assessment:
Mr Daniel Danielle is a 63 year old male patient scheduled for aortobifemoral bypass surgery with Dr. Velázquez for chronic limb threatening ischemia with severe multilevel peripheral arterial disease bilateral (left greater than right) lower extremities,
surgery done 12-29.
Impression:
Status post bifemoral aortic bifemoral bypass due to severe peripheral occlusive arterial disease: 12-29
Alcohol withdrawal.
R testicular torsion with vascular compromise, identified 01-02
Acute LUE weakness, 90% stenosis R carotid bulb, 01-02, acute ischemic stroke: s/p L CEA 01-04
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
HTN
'Central' cord syndrome
PAD
Current Tobacco Use
ETOH abuse
PLAN:
Severe multilevel PAD
Post op day #7 on 01-05
Vascular surgery following closely
Continue neurovascular checks per protocol
Patient is hypertensive, likely compounded by alcohol withdrawal
Advanced diet today as rec by Vasc Sx
Discontinued Lee
Acute LUE weakness afternoon 01-[address] s/c negative
CTA head 90% stenosis of R carotid bulb
MRI brain 01-02: scattered foci of restricted diffusion on the right in the parietal occipital lobes, consistent with acute/subacute infarcts, likely embolic, nonhemorrhagic.
Avoid hypotension
Resume outpatient valsartan and then amlodipine 01-03
ASA 81 mg qd
Thrombolysis contraindicated due very recent vascular surgery
R CEA done with no incident 01-04
Speech following, seen 01-05, no evidence of O/P dysphagia, rec reg diet with thin liquids
Neurology following: improved LUE weakness 01-05, start ASA/clopidogrel protocol
Severe alcohol withdrawal: improving
MSAS
As needed Ativan IV
Weaned off precedex drip 01-02
Was noncooperative for CT head on adm
Psychiatry consulted, recs appreciated- continue ativan IV fleeting doses, changed to prn 01-05
Swollen, tender, erythematous scrotum and testicles: 01-02
U/S testicles 01-02:
R testicle: no arterial flow is demonstrated suggesting R testicular torsion, venous flow is demonstrated, R testicle is heterogeneous in echotexture measuring 4.4 x 2.7 x 4.0 cm
L testicle: normal flow, size, contour, measuring 4.8 x 3.4 x 3.4 cm, there is a 1 cm left epididymal cyst
Emergent urology 01-02 appreciated: doubt true R testicular torsion. The likelihood of meaningful blood flow gnosticism given the time course and etiology is extremely remote and very high risk given current clinical situation
Rec: clinical observation only, no surgical indication, stated will follow peripherally since after January 04
Pain management: high dose IV APAP ATC, changed to IV prn 01-05
Follow clinically, so far no evidence of cellulitis or Janneth's gangrene
No current indication for empiric atbs
Smoking cessation: Nicotine patch.
Emphysema on CT of the abdomen pelvis: Possible COPD given ongoing smoking.
Started albuterol Nebs tid and prn, guaifenesin 01-02
Change O2 nebs to as needed only for now on January 04
No current need for systemic CSs
Will benefit from outpatient pulmonary evaluation and lung cancer screening, left BCMA information in chart
Possible BPH by CT scan. Monitor for urinary retention.
DVT prophylaxis with subcu heparin
Critical care time: 40 min
D/w Eber Sibley and Tiffanie 01-02
D/w Dr Lee 01-03, he will update family with all above issues
D/w MDT
Can transfer to telemetry once ok with vasc sx, will sign off then
Subjective Dataa
Subjective Data
Date of Service:
Date of Service: January 06, 2024
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
Subjective:
Received right carotid endarterectomy yesterday with no issue
Much more awake today, appropriate answers to questions, recognizes me, reports improvement of left upper extremity weakness, reports significant improvement of testicular pain
States he is hungry, he wants to eat
Review of Systems
General: Fever (n), Sweats (n), Chills (n) and Satisfactory Appetite
Cardiopulmonary: Dyspnea (n), Cough (n), Chest Pain (n) and Edema
GI: Abdominal Pain (n), Nausea (n) and Vomiting (n)
Neuro: Headache (n), Dizziness (n), Numbness (n), Weakness (improved at LUE) and Confused (n)
Objective Data
Data Reviewed
Vital Signs / I&O / Oxygen:
Vital Signs
Temp Pulse Resp BP Pulse Ox
98.8 F 59 18 114/59 93
01/06/24 04:30 01/06/24 06:00 01/06/24 06:00 01/06/24 00:01 01/05/24 21:00
Intake and Output
01/05/24 01/06/24 01/07/24
06:59 06:59 06:59
Intake Total 2362.5 / 2510.0 2097.5 / 2097.5
Output Total 1650 / 1650 1775 / 1775
Balance 712.5 / 860.0 322.5 / 322.5
SaO2 93
Nasal Cannula flow liters per 2
minute
Physical Exam
General: Respiratory Distress (n)
HEENT: Normocephalic and Moist Mucous Membranes
Cardiovascular: S1-S2, Regular Rhythm, Murmur (n), JVD (n), Peripheral Edema (n) and Calf Tenderness (n)
Respiratory: Rhonchi (Few scattered), Non-Labored Respirations and Stridor (n)
GI: Soft, Non Distended, Non Tender, Normal Bowel Sounds and Other (Improved swelling, improved tenderness of testicles)
Neurology: Awake, AO x 3, No Motor Deficits, Other (Left upper extremity weakness improving) and Other (not agitated)
Skin: Warm
Labs/Micro/Reports
Lab Data
01/06/24 04:25
Laboratory Results
01/05/24 01/06/24
15:59 04:25
PT 14.1 14.8 H
INR 1.09 1.15
APTT 32.9 29.1
--- NOTE | 2024-01-06 07:48 | W.PN.VS ---
Addendum entered and electronically signed by Mic Velázquez MD 01/06/24 09:22:
Seen and examined with MERRY Gomez. Agree with findings as noted below. Patient is much more alert and conversant today. On exam/his right neck incision is clean dry and intact. No hematoma. Neurologically he appears somewhat improved. His right
lower and upper extremity maintain good strength. Left lower extremity he has pretty good strength as well he is able to easily lift his entire leg off the bed, flex his knee and extend his knee, move his toes. I asked him to raise his left arm
and he was able to do that as well today and I asked him to curl his left arm (flex at the elbow) and he was able to do that easily. He also was able to flex and extend his fingers for me today. His speech was much more conversant. His abdomen is
soft, nondistended, nontender. Incision is clean dry and intact. His groins are flat bilaterally. Right groin incisional VAC with minimal drainage. Palpable bilateral femoral pulses. Feet are warm. Plan/as discussed and noted below.
Original Note:
Today's Communication / Plan
-
Patient seen and examined at bedside with Dr. Mic Velázquez, all questions and concerns addressed
Assessment/Plan
-
Assessment: 63 year old male POD #7 Aortobifemoral bypass and right femoral endarterectomy, POD #1 Right CEA
Plan:
- Re-evaluate speech for swallow testing today now that patient is increasingly more alert and oriented
- Continue MSAS per protocol
- Continue PT/OT
� Repeat CBC to check Hgb
� Will change incisional wound vac to KRISTEN dressing
� Encouraged nursing staff to trial urinal with removal of condom catheter
- Continue to encourage incentive spirometry
Subjective Data
-
Date of Service: January 06, 2024
Patient seen and examined at bedside, offers no complaints. Reports desire to eat and drink. Does endorse mild ABD pain at midline incision site. +BM this AM. Reports improvement in left side weakness.
Objective Data
-
Vital Signs
Temp Pulse Resp BP Pulse Ox
98.8 F 59 18 114/59 93
01/06/24 04:30 01/06/24 06:00 01/06/24 06:00 01/06/24 00:01 01/05/24 21:00
Intake and Output
01/05/24 01/06/24 01/07/24
06:59 06:59 06:59
Intake Total 2362.5 / 2510.0 2097.5 / 2097.5
Output Total 1650 / 1650 1775 / 1775
Balance 712.5 / 860.0 322.5 / 322.5
Intake:
Oral fluids 540 / 540
IV fluids (Total) 1052.5 / 1200.0 1897.5 / 1897.5
D5/0.45%NSS with KCL 10 MEQ 10 960 / 1040 1560 / 1560
meq In 1,000 ml @ 80 mls/hr IV
.[id number] [facility] Rx#:[id number]
K rider 67.5 / 135.0 337.5 / 337.5
mag 25 / 25
IV piggybacks 770 / 770 200 / 200
Output:
Urine, Lee 900 / 900
Urine, Voided 750 / 750 1775 / 1775
Lab Results
01/06/24 04:25
Calcium 8.1 mg/dl (8.4-10.2) L 01/06/24 04:25
Phosphorus 3.3 mg/dl (2.5-4.5) 01/05/24 04:20
Magnesium 2.1 mg/dl (1.6-2.3) 01/05/24 04:20
Physical Exam
-
Awake and alert.
No tachycardia
No dyspnea on room air
Abdomen soft, nondistended, nontender. Incision clean dry and intact, tabatha well approximated
Groins flat bilaterally. Left groin incision clean dry and intact. Right groin incisional VAC in place. Minimal if at all drainage. No erythema in either groins. No hematomas. Palpable femoral pulses bilaterally.
Feet are both pink and warm.
Stable left upper extremity neurologic exam with mild drift, improved strength and hand grasp compared to prior exams
Labs reviewed.
--- NOTE | 2024-01-06 08:13 | W.PN.NEURO.1 ---
Addendum entered and electronically signed by Jorge L Moreno MD 01/06/24 10:41:
I saw and evaluate the patient reviewed note by Laura Montesinos agree with the findings the following comments:
63-year-old man who had bilateral aortofemoral vascular surgery and femoral endarterectomy who developed right MCA stroke a couple of days after his procedure who is now postop day #1 from right-sided carotid endarterectomy for right sided
symptomatic stenosis.
He has been doing fairly well considering everything. Denies any headache, denies testicular pain or significant abdominal pain does have some right neck soreness.
Neurologic examination is stable to improving with no hemianopia, left facial droop is present dysarthria is present, there are some mild signs of left-sided neglect, left arm 4/5 left leg 4/5
Assessment: Symptomatic right coronary stenosis causing right MCA stroke and status post carotid endarterectomy
Recommendations
-DAPT therapy aspirin clopidogrel for 21 days and stop clopidogrel after 21 days continue on aspirin 81 mg alone
-Continue statin
-Goal normotension
-Neurologic checks NIH scale
-Wound care
-PT/OT speech and rehab medicine evaluations
Original Note:
Documented by User: Laura Solorio NP 01/06/24 10:19
Today's Communication / Plan
-
.
Neuro Assessment/Plan
Assessment
Patient is a 63-year-old male with a past medical history of hypertension hyperlipidemia peripheral vascular disease who presented to hospital initially for bilateral aortofemoral vascular surgery as well as femoral endarterectomy, this was on 12/29
and over the weekend patient showed signs of alcohol withdrawal which had been improving initially, on the a.m. of 01/02 patient began to show some signs of left-sided hemineglect and clear left arm significant weakness triggering a stroke alert.
Patient is not felt to be a candidate for thrombolytic/TNK therapy given serious life-threatening bleeding risks with the medication given recent major surgery.
CTA of the head neck showed no intracranial occlusion no type of intracranial thrombectomy would be an option. CTA does show a very high-grade stenosis of the right internal carotid artery which is presumed to be the cause of the patient's ischemic
stroke.
Brain MRI does confirm acute ischemic strokes within the right MCA territory highly suggestive of a right-sided carotid source. No infarcts in the posterior circulation on the left hemisphere.
Very likely and presumed at this point that patient has symptomatic right carotid stenosis
Patient showing some worsening confusion and agitation from 01/02 into the a.m. of 01/03, most likely multifactorial from testicular torsion, alcohol withdrawal and now a right-sided MCA stroke which can produce confusion and agitation.
Patient underwent R CEA on 01/05/24. Postoperatively was initially noted to not be moving his LLE and his LUE was 3/5. Repeat CTA head/neck was obtained and was negative for LVO. About 30 minutes later patient had significant improvement in his
left-sided strength.
Plan
-Continue DAPT with aspirin 81mg and Plavix 75mg daily for 21 days. After 21 days, discontinue Plavix and continue aspirin 81mg daily only, indefinitely.
-SBP goal 120-180.
-LDL goal <70. LDL is 52. Continue home atorvastatin 20mg daily as LDL is at goal.
-Goal normoglycemia, hbA1c is 5.3.
-Nicotine patch. Smoking cessation counseling.
-Continue treating alcohol withdrawal.
-NIHSS and neurological checks per unit guidelines.
-Patient provided with a stroke education packet.
-PT/OT/ST evaluations.
-Patient should follow-up with Neurology as an outpatient, may see the MAINTENANCE PLUMBER or one of the physicians.
Subjective/Objective
Subjective Data
Date of Service: January 06, 2024
No acute events overnight. Patient reports that his left-sided strength has improved. He denies any headache, dizziness, vision changes, speech/swallow difficulty, new numbness, nausea, chest pain, palpitations, and shortness of breath. He endorses
chronic tingling in bilateral hands and feet due to neuropathy.
Objective Data
Vital Signs
Temp Pulse Resp BP Pulse Ox
98.6 F 59 18 114/59 93
01/06/24 07:54 01/06/24 06:00 01/06/24 06:00 01/06/24 00:01 01/05/24 21:00
Lab Results
01/06/24 04:25
PT 14.8 Sec (11.4-14.6) H 01/06/24 04:25
INR 1.15 01/06/24 04:25
APTT 29.1 Sec (23.4-35.0) 01/06/24 04:25
Sodium 138 mmol/L (135-145) 01/06/24 04:25
Potassium 4.2 mmol/L (3.5-5.1) 01/06/24 04:25
BUN 15 mg/dl (9-20) 01/06/24 04:25
Glucose 157 mg/dl (70-99) H 01/06/24 04:25
Calcium 8.1 mg/dl (8.4-10.2) L 01/06/24 04:25
Phosphorus 3.3 mg/dl (2.5-4.5) 01/05/24 04:20
LDL Cholesterol, Calc 52 mg/dl 01/03/24 04:23
Vitamin B12 982 pg/ml (239-931) H 01/03/24 04:23
Patient Allergies
No Known Allergies Allergy (Verified 12/30/23 06:30)
LDL Level: <70, continue statin
Review of Systems
-
History Source: Patient
EENT: Negative Blurry Vision, Decreased Vision or Swallowing Difficulty
Respiratory: Negative Cough or Trouble Breathing
Cardiac: Negative Chest Pain or Palpitations
Abdomen/GI: Negative Nausea
Neuro: Numbness; Negative Dizzy, Headache, Weakness, Ataxia, Tremors or Speech Problem
Physical Exam
-
General: No Apparent Distress
Eyes: No Ptosis and PERRLA
HEENT: Normocephalic and Atraumatic
Neck: Full Range of Motion
Respiratory: No Dyspnea
GI: Non-distended
Extremities: No Clubbing, No Cyanosis and No Edema
Psych: Unremarkable
Extended Neurological Exam
Mood & Affect: Mood Unremarkable and Affect Unremarkable
Attention Span & Concentration: Awake, Alert and Interactive
Memory: Unremarkable (AAOx3, slightly forgetful to recent events)
Tremor: Hand Tremor Absent and Head Tremor Absent
Involuntary Movement: None
Speech: Quantity Unremarkable, Rate of Production Unremarkable and Dysarthric (very mild dysarthria)
Cranial Nerve II: Left Eye: Pupillary Reactivity Unremarkable, Pupillary Size Unremarkable and Visual Montes Intact
Cranial Nerve II: Right Eye: Pupillary Reactivity Unremarkable, Pupillary Size Unremarkable and Visual Montes Intact
Cranial Nerves III, IV, : Extraocular Movement: Extraocular Movement Full in all Directions
Cranial Nerve V: Facial Sensation: Intact to Light Touch
Cranial Nerve VII: Facial Symmetry: Normal Facial Symmetry
Cranial Nerve VIII: Hearing: Unremarkable Hearing to Normal Conversational Volume
Cranial Nerves IX, X: Palate Movement: Palate Elevation Symmetric
Cranial Nerve XI: Shoulder Shrug: Unremarkable
Cranial Nerve XII: Tongue Protusion: Midline
Muscle Strength, Overall: Reduced on Left (LUE 4/5, left hand employee relations manager 3/5. LLE 5-/5)
Pronator Drift: Drift in Left Upper Extremity and No Drift in Lower Extremities
Touch Sensation: Double Simultaneous Stimulation Unremarkable and Other (reports mild decreased sensation in LUE/LLE)
Coordination: Ktxyjp-[id number]-kxojru Testing Unremarkable
Babinski Sign: Absent Bilaterally
Modified [place] Score (MRS)
-
Modified [place] Scale (mRS): Moderately severe disability. Unable to attend to bodily needs/walk.
Score: 4
Data Reviewed
-
CT-A: Report Reviewed and Image Reviewed
CT Head: Report Reviewed and Image Reviewed
CT Cervical Spine: Report Reviewed and Image Reviewed
MRI Head: Report Reviewed and Image Reviewed
Labs: Report Reviewed
Lipid Profile: Report Reviewed
HgbA1C: Report Reviewed
Reviewed with: Physician and Patient
NIH Stroke Score
Subsequent NIH Scale
Date of Subsequent NIH Scale: 01/06/24
Time of Subsequent NIH Scale: 08:30
NIH Stroke Score
Level of Consciousness: 0 - Alert
LOC Questions: 0-Answers both correctly
LOC Commands: 0-Performs both correctly
Best Horizontal Gaze: 0-Normal
Visual Montes: 0=Normal, no visual loss
Facial Palsy: 0=Normal, symmetrical
Motor - Right Arm: 0=No drift 10 seconds
Motor - Left Arm: 1=Drift < 10 seconds
Motor - Right Le-No drift 5 seconds
Motor - Left Le-No drift 5 seconds
Limb Ataxia: 0-Absent
Sensation: 1-Mild loss
Best Language: 0-No aphasia
Dysarthria: 1-Mild slurring
Extinction and Inattention: 0-No abnormality
Total Score:: 3
Modified Lafayette (mRS) Score
Modified [place] Scale (mRS): Moderately severe disability. Unable to attend to bodily needs/walk.
Score: 4
Medications
-
Active Medications
Generic Name Dose Route Start Last Admin
Trade Name Freq PRN Reason Stop Dose Admin
Albuterol Sulfate 2.5 mg 01/03/24 08:34
Albuterol Nebs 2.5 Mg/3 Ml Ampul INH
R Q4HPRN PRN
wheezing
Protocol
Amlodipine Besylate 5 mg 01/04/24 18:00 01/05/24 17:11
Amlodipine 5 Mg Tablet PO 02/01/24 17:59 Not Given
QPM AMITA
Aspirin 81 mg 01/04/24 08:00 01/05/24 08:20
Aspirin 81 Mg Chewable Tablet PO 02/01/24 07:59 81 mg
DAILY AMITA Administration
Atorvastatin Calcium 20 mg 01/03/24 20:00 01/05/24 17:09
Atorvastatin (Lipitor) 20 Mg Tablet PO 01/31/24 19:59 20 mg
QPM AMITA Administration
Bisacodyl 10 mg 12/30/23 13:43 01/04/24 09:50
Bisacodyl 10 Mg Rectal Suppository RECTAL 01/27/24 13:42 10 mg
DAILYPRN PRN Administration
constipation
Clopidogrel Bisulfate 75 mg 01/05/24 17:00 01/05/24 17:09
Clopidogrel 75 Mg Tablet PO 01/24/24 16:59 75 mg
DAILY AMITA Administration
Enoxaparin Sodium 40 mg 01/03/24 18:00 01/05/24 17:09
Enoxaparin Sodium 40 Mg/0.4 Ml Syringe SC 01/31/24 17:59 40 mg
QPM AMITA Administration
Fentanyl Citrate 50 mcg 01/05/24 11:30
Fentanyl (50 Mcg/Ml) 100 Mcg/2 Ml Ampul IV 01/06/24 11:30
PACU-Q5MPRN PRN
severe pain
Fentanyl Citrate 25 mcg 01/05/24 11:30
Fentanyl (50 Mcg/Ml) 100 Mcg/2 Ml Ampul IV 01/06/24 11:30
PACU-Q5MPRN PRN
moderate pain
Folic Acid 1 mg 01/04/24 08:00 01/05/24 08:20
Folic Acid 1 Mg Tablet PO 02/01/24 07:59 1 mg
DAILY AMITA Administration
Guaifenesin 600 mg 01/03/24 20:00 01/05/24 19:33
Guaifenesin 600 Mg Extended Release Tablet PO 01/31/24 19:59 Not Given
Q12 AMITA
Hydralazine HCl 5 mg 01/04/24 10:08
Hydralazine 20 Mg/Ml Vial IV 02/01/24 10:07
Q6HPRN PRN
SBP >180
Hydromorphone HCl 0.5 mg 01/03/24 21:32 01/05/24 08:21
Hydromorphone 0.5 Mg/0.5 Ml Syringe IV 01/17/24 21:31 0.5 mg
Q3HPRN PRN Administration
moderate pain
Folic Acid 1 mg/ Sodium 50.2 mls @ 200.8 mls/hr 12/30/23 15:37
Chloride IV 01/27/24 15:36
DAILYPRN PRN
if NPO
Acetaminophen 1,000 mg in 100 mls @ 400 mls/hr 01/05/24 10:00 01/06/24 04:32
Ofirmev IV 01/06/24 09:59 100 mls
Q6H AMITA Administration
Protocol
Nitroglycerin/Dextrose 100 mg in 250 mls @ 0 mls/hr 01/05/24 13:45
Nitroglycerin Premix IV
PER PROTOCOL AMITA
Protocol
Per Protocol
Phenylephrine HCl 50 mg in 250 mls @ 0 mls/hr 01/05/24 13:45
Nick-Synephrine IV
PER PROTOCOL AMITA
Protocol
Per Protocol
Lorazepam 1 mg 12/30/23 15:37 01/05/24 08:20
Lorazepam 2 Mg/Ml Vial IV 01/27/24 15:36 1 mg
Q1HPRN PRN Administration
MSAS 8-11
Lorazepam 2 mg 12/30/23 15:37 01/04/24 10:29
Lorazepam 2 Mg/Ml Vial IV 01/27/24 15:36 2 mg
Q1HPRN PRN Administration
MSAS > 11
Lorazepam 1 mg 01/03/24 11:00 01/04/24 18:19
Lorazepam 2 Mg/Ml Vial IV 01/31/24 10:59 1 mg
Q2HPRN PRN Administration
MSAS 5-7
Lorazepam 1 mg 01/03/24 16:00 01/05/24 23:05
Lorazepam 2 Mg/Ml Vial IV 01/31/24 15:59 1 mg
Q8 AMITA Administration
Meperidine HCl 12.5 mg 01/05/24 11:30
Meperidine 25 Mg/Ml Injection IV 01/06/24 11:30
PACU-Q5MPRN PRN
shivers
Naloxone HCl 0.04 mg 12/30/23 14:55
Naloxone (0.4 Mg/Ml) 1 Ml Injection IV 01/27/24 14:54
Q2MPRN PRN
RR </= 10/min / Pasero scale=4
Nicotine 14 mg 12/31/23 11:00 01/05/24 08:22
Nicotine 14 Mg Patch TRANSDERM 01/28/24 10:59 14 mg
DAILY AMITA Administration
Ondansetron HCl 4 mg 01/05/24 11:30
Ondansetron 4 Mg/2 Ml Vial IV 01/06/24 11:30
PACU-ONCEPRN PRN
nausea/vomiting
Patch Removal 0 patch 12/31/23 22:00 01/05/24 23:04
Remove Nicotine Patch REMOVE 01/28/24 21:59 1 patch
HS AMITA Administration
Prochlorperazine Edisylate 5 mg 01/05/24 19:17 01/05/24 19:34
Prochlorperazine 10 Mg/2 Ml Vial IV 02/02/24 19:16 5 mg
Q6HPRN PRN Administration
nausea/vomiting/headache
Sodium Chloride 0 flush 12/30/23 08:00
Sodium Chloride 0.9% (Flush) Syringe IV 01/27/24 07:59
PER PROTOCOL MAITA
Sodium Chloride 0.9 ml 12/30/23 14:55 01/02/24 13:39
Sodium Chloride 0.9% (Preservative Free) 10 Ml Vial IV 01/27/24 14:54 0.9 ml
Q2MPRN PRN Administration
naloxone dilution
Sodium Chloride 0 ml 12/30/23 15:37 01/04/24 19:47
Sodium Chloride 0.9% (Preservative Free) 10 Ml Vial IV 01/27/24 15:36 10 ml
PRN PRN Administration
To dilute IV Ativan
Protocol
Sodium Chloride 1 ml 01/02/24 11:56 01/05/24 23:13
Nss (Pf) 10 Ml Vial For Ativan 2 Mg Dose IV 01/30/24 08:59 1 ml
Q8 AMITA Administration
Thiamine HCl 100 mg 01/02/24 20:00 01/05/24 19:33
Thiamine 100 Mg Tablet PO 01/30/24 19:59 Not Given
BID AMITA
Valsartan 160 mg 01/04/24 18:00 01/05/24 17:11
Valsartan 80 Mg Tablet PO 02/01/24 17:59 Not Given
QPM AMITA
Home Medications
�Medication �Instructions �Recorded
aspirin 81 mg capsule 81 mg PO QPM Blood Clot 12/22/23
Prevention/Tx
atorvastatin 20 mg tablet 20 mg PO QPM High Cholesterol 12/22/23
valsartan 160 mg tablet 160 mg PO QPM Blood Pressure 12/22/23
amlodipine 5 mg tablet 5 mg PO QPM Blood Pressure 12/30/23
pregabalin 150 mg capsule (Lyrica) 150 mg PO DAILYPRN PRN pain 12/30/23
sildenafil 100 mg tablet (Viagra) 100 mg PO DAILY PRN as needed 12/30/23

Documented by User: Jorge L Moreno MD 01/06/24 10:39
Modified Brian Score (MRS)
-
Score: 4
NIH Stroke Score
NIH Stroke Score
Total Score:: 3
Modified Brian (mRS) Score
Score: 4
[2024-01-06 08:31] LABS: Hemoglobin 8.8 g/dL (13.0-18.0); Mean Corp Hgb Conc. 35.2 g/dL (33.0-37.0); Mean Corpuscular Hgb 31.4 pg (27.0-31.0); Mean Corpuscular Volume 89.3 fL (80.0-94.0); Mean Platelet Volume 9.7 fL (7.4-10.4); Platelet Count 360 10^3/uL (130-400); Red Cell Dist. Width 14.7 % (11.5-14.5); White Blood Cell Count 15.9 10^3/uL (4.8-10.8)
[2024-01-06] MEDS: FOLVITE 1 MG PO (08:38)
[2024-01-06] MEDS: ATIVAN 1 MG IV (08:38)
[2024-01-06] MEDS: LOW STRENGTH ASPIRIN 81 MG PO (08:39)
[2024-01-06] MEDS: VITAMIN B1 100 MG PO ×2 (08:39→20:12)
[2024-01-06] MEDS: NICODERM TRANSDERMAL 14 MG TRANSDERM (08:39)
[2024-01-06] MEDS: MUCINEX 600 MG PO ×2 (08:39→20:12)
[2024-01-06] MEDS: PLAVIX 75 MG PO (08:40)
[2024-01-06] MEDS: NSS (PRESERVATIVE FREE) 1 ML IV (08:40)
--- NOTE | 2024-01-06 09:43 | W.PN.UPDATE ---
Update Note
Progress Note Update
Right groin incisional wound VAC removed, replaced with rosalio dressing by this provider. Patient tolerated well. No erythema, edema, or tenderness.
--- NOTE | 2024-01-06 11:00 | PTCARENOTE ---
Complete assessment done this am, and again now. Pt remains oriented x3, following all commands and cooperative. All restraints off now. +PERRL. Dr Velázquez in to see pt this am. Labs drawn and L flor mahin d/c'd. All pulses present. HR SB as per monitor.
Mid abd tabatha intact. R neck and L groin inc with surgi glue. no drainage. R wound was to wound vac this am with sm amt drainage. R groin drsg changed and wound vac d/c'd and KRISTEN drsg placed by SEED AND FERTILIZER SPECIALIST. Speech eval was done and pt cleared for thin
liqs and cholesterol lowering diet. Pt ate 40% of his lunch. Pt assisted OOB to chair, tolerated very well. Pt then to commode and had mod amt loose BM, Condom cath was d/c'd this morning, and pt voiding without difficulty. Call hernández at side, and
pt's spouse now in room and updated.
--- NOTE | 2024-01-06 11:25 | W.PN.UPDATE ---
Update Note
Progress Note Update
reviewed chart spoke with nursing. patient was sleeping and i did not wake him. nursing reports patient doing very well. no further incidents of agitation. yesterday carotid surgery went well. psych will sign off. please call if you need us to
return.
[2024-01-06] MEDS: TYLENOL 650 MG PO ×2 (11:27→16:06)
[2024-01-06 11:53] LABS: Glucose - Point of Care 137 mg/dl (70-99)
--- NOTE | 2024-01-06 12:22 | PTOTSP ---
Dysphagia Therapy
Oral and pharyngeal stages of swallowing suspected be WFL based on bedside re-evaluation.
Recommend:
1. Regular, Thin Liquids
2. Medications as best tolerated
3. General aspiration and reflux precautions
4. Follow up for full speech/language/cognitive evaluation.
--- NOTE | 2024-01-06 15:10 | CM ---
Reviewed chart, determination from PT is acute rehab when patient is stable. Will confirm and send referrals.
Plan: Case management will continue to follow and assist with discharge planning. Acute vrs skilled.
[2024-01-06 16:58] LABS: Glucose - Point of Care 128 mg/dl (70-99)
--- NOTE | 2024-01-06 17:16 | PTCARENOTE ---
Pt's NIHSS remains=1, with sl left arm weakness. Pt c/o occ R neck soreness, tylenol 650 mg given. Pt ordered dinner, and pt's son and in room. Pt assisted OOB to chair again, tolerating well. All incisions remain intact. R groin KRISTEN drsg
intact with sm amt of serous drainage noted. VSS.
--- NOTE | 2024-01-06 17:27 | WOUNDNOTE ---
WOC RN Note: t/c Spoke with GINNY Pike who is aware to place removed wound vac pump in ICU soiled utility room. Notified 3M via [employer] of stop vac ulta pump rental bill date of as of 01/06/24 and for vac pickling tank operator (work order #[id number]).
[2024-01-06] MEDS: DIOVAN 160 MG PO (18:40)
[2024-01-06] MEDS: LOVENOX 40 MG SC (18:41)
[2024-01-06] MEDS: NORVASC 5 MG PO (18:41)
[2024-01-06] MEDS: LIPITOR 20 MG PO (18:41)
--- NOTE | 2024-01-06 19:10 | PTCARENOTE ---
Pt's R fem wound KRISTEN drsg blinking full now. Drsg with approx 75% serous drainage noted. No leaking or pain. [facility], EQUIPMENT SALES SPECIALIST made aware, and also vascular surg parks and recreation manager was tiger texted.
--- NOTE | 2024-01-06 19:40 | PTCARENOTE ---
rec`d pt at 1900, laying in bed. family at bedside. AAOx3. follows commands. left arm still slightly weak. can raise arm but fine motor skills need work. afebrile. SR on monitor. RA POX 95%. dimin, coarse BS. round abdomen. pt uses urinal. Rt neck
open to air w/ surgi glue. left fem with surgi glue, open to air. rt fem with peco dressing. 20 rt Ac and 20 left FA. call hernández in reach. safe environment maintained. bed alarm on.
[2024-01-06] MEDS: COMPAZINE 5 MG IV (23:12)
[2024-01-07] VITALS (23 sets, daily range): BP systolic 138–177; BP diastolic 67–120; PULSE 83; BMI 24.5
--- NOTE | 2024-01-07 | PTCARENOTE ---
pt reassessed. no changes in pt assessment. call hernández in reach.
[2024-01-07 04:35] LABS: Hemoglobin 9.2 g/dL (13.0-18.0); Mean Corp Hgb Conc. 34.1 g/dL (33.0-37.0); Mean Corpuscular Hgb 30.6 pg (27.0-31.0); Mean Corpuscular Volume 89.7 fL (80.0-94.0); Mean Platelet Volume 9.6 fL (7.4-10.4); Platelet Count 481 10^3/uL (130-400); Red Blood Cell Count 3.01 10^6/uL (4.70-6.10); Red Cell Dist. Width 14.5 % (11.5-14.5); White Blood Cell Count 14.3 10^3/uL (4.8-10.8)
--- NOTE | 2024-01-07 04:57 | PTCARENOTE ---
pt reassessed. no changes in pt assessment. call hernández in reach.
[2024-01-07 05:07] LABS: Blood Urea Nitrogen 15 mg/dl (9-20); Calcium 8.7 mg/dl (8.4-10.2); Carbon Dioxide 21 mmol/L (22-30); Chloride 110 mmol/L (98-107); Estimated Creatinine Clearance 82 ml/min; Glucose 111 mg/dl (70-99); Potassium 3.9 mmol/L (3.5-5.1); Sodium 138 mmol/L (135-145); eGFR > 60.00
--- NOTE | 2024-01-07 07:23 | W.PN.INTV ---
Today's Communication / Plan
Recommendations
MSAS
ASA
Plavix
Enox
Assessment
-
-
Assessment:
Mr Daniel Danielle is a 63 year old male patient scheduled for aortobifemoral bypass surgery with Dr. Velázquez for chronic limb threatening ischemia with severe multilevel peripheral arterial disease bilateral (left greater than right) lower extremities,
surgery done 12-29.
Impression:
Status post bifemoral aortic bifemoral bypass due to severe peripheral occlusive arterial disease: 12-29
Alcohol withdrawal.
R testicular torsion with vascular compromise, identified 01-02
Acute LUE weakness, 90% stenosis R carotid bulb, 01-02, acute ischemic stroke: s/p L CEA 01-04
Conditions BRAKE SPECIALIST:
HTN
'Central' cord syndrome
PAD
Current Tobacco Use
ETOH abuse
PLAN:
Severe multilevel PAD
Post op day #8 on 01-06
Vascular surgery following closely
Continue neurovascular checks per protocol
Patient is hypertensive, likely compounded by alcohol withdrawal
Advanced diet today as rec by Vasc Sx
Discontinued Lee
Pending surgical washout, clipping of any potential seromatous sources, and sartorius muscle flap coverage: M 01-09
Acute LUE weakness afternoon 01-[address] s/c negative
CTA head 90% stenosis of R carotid bulb
MRI brain 01-02: scattered foci of restricted diffusion on the right in the parietal occipital lobes, consistent with acute/subacute infarcts, likely embolic, nonhemorrhagic.
Avoid hypotension
Resume outpatient valsartan and then amlodipine 01-03
ASA 81 mg qd
Thrombolysis contraindicated due very recent vascular surgery
R CEA done with no incident 01-04
Speech following, seen 01-05, no evidence of O/P dysphagia, rec reg diet with thin liquids
Neurology following: improved LUE weakness 01-05, start ASA/clopidogrel protocol
Patient reported mild R neck pain and swelling 01-06, R carotid US ordered, pending report at EMR but already dictated by Dr Velázquez
Severe alcohol withdrawal: improving significantly
MSAS
As needed Ativan IV
Weaned off precedex drip 01-02
Was [address] for CT head on adm
Psychiatry consulted, recs appreciated- continue ativan IV fleeting doses, changed to prn 01-05
Psych signed off 01-05
Swollen, tender, erythematous scrotum and testicles: 01-02
POC US 01-02 with enlargement of R testicle and presence of necrotic areas, normal appearing L testicle
U/S testicles 01-02:
R testicle: no arterial flow is demonstrated suggesting R testicular torsion, venous flow is demonstrated, R testicle is heterogeneous in echotexture measuring 4.4 x 2.7 x 4.0 cm
L testicle: normal flow, size, contour, measuring 4.8 x 3.4 x 3.4 cm, there is a 1 cm left epididymal cyst
Emergent urology evaluation 01-02 appreciated: doubt true R testicular torsion. The likelihood of meaningful blood flow mandaeism given the time course and etiology is extremely remote and very high risk given current clinical situation
Rec: clinical observation only, no surgical indication, stated will follow peripherally since after January 04
Pain management: high dose IV APAP ATC, changed to IV prn 01-05 as testicular symptoms improved significantly
Follow clinically, so far no evidence of cellulitis or Janneht's gangrene
No current indication for empiric atbs for urologic reason
Smoking cessation: Nicotine patch at 14 mg qd
Emphysema on CT of the abdomen pelvis: Possible COPD given ongoing smoking.
Started albuterol Nebs tid and prn, guaifenesin 01-02
Change O2 nebs to as needed only for now on January 04
No current need for systemic CSs
Will benefit from outpatient pulmonary evaluation and lung cancer screening, left BCMA information in chart
DVT prophylaxis with subcu heparin
Critical care time: 35 min
D/w Eber Sibley and Tiffanie 01-02
D/w Dr Lee 01-03, he will update family with all above issues
D/w MDT
Subjective Dataa
Subjective Data
Date of Service:
Date of Service: January 07, 2024
Chief Complaint: Intelligence Manager Follow Up (Status post aortic bifemoral bypass.)
Objective Data
Data Reviewed
Vital Signs / I&O / Oxygen:
Vital Signs
Temp Pulse Resp BP Pulse Ox
98.8 F 62 16 143/67 96
01/07/24 04:58 01/07/24 06:00 01/07/24 06:00 01/07/24 04:00 01/06/24 19:32
Intake and Output
01/06/24 01/07/24 01/08/24
06:59 06:59 06:59
Intake Total 2097.5 / 2177.5 1350 / 1350
Output Total 1775 / 1775 650 / 650
Balance 322.5 / 402.5 700 / 700
SaO2 96
Nasal Cannula flow liters per 2
minute
Physical Exam
General: Respiratory Distress (n)
HEENT: Normocephalic and Moist Mucous Membranes
Cardiovascular: S1-S2, Regular Rhythm, Murmur (n), JVD (n), Peripheral Edema (n) and Calf Tenderness (n)
Respiratory: Rhonchi (Few scattered), Non-Labored Respirations and Stridor (n)
GI: Soft, Non Distended, Non Tender, Normal Bowel Sounds and Other (Improved swelling, improved tenderness of testicles)
Neurology: Awake, AO x 3, No Motor Deficits, Other (Left upper extremity weakness improving) and Other (not agitated)
Skin: Warm
Labs/Micro/Reports
Lab Data
01/07/24 04:15
01/07/24 04:15
[2024-01-07 07:32] LABS: Glucose - Point of Care 130 mg/dl (70-99)
--- NOTE | 2024-01-07 07:46 | W.PN.URO.CBU ---
Today's Communication / Plan
-
f/u prn
Assessment / Plan
-
ischemia of right testicle
at this point- no surgical indications
call with any further questions
Diagnosis
-
Date of Service: January 07, 2024
-
Patient Diagnosis:
ischemic right testicle
Subjective
-
pt looks great today
awake and alert
denies any testicular pain or urinary issues
Objective
-
Vital Signs
Temp Pulse Resp BP Pulse Ox
99.7 F 62 16 143/67 96
01/07/24 07:32 01/07/24 06:00 01/07/24 06:00 01/07/24 04:00 01/06/24 19:32
Intake and Output
01/06/24 01/07/24 01/08/24
06:59 06:59 06:59
Intake Total 2097.5 / 2177.5 1350 / 1350
Output Total 1774 / 1774 650 / 650
Balance 322.5 / 402.5 700 / 700
Intake:
Oral fluids 870 / 870
IV fluids (Total) 1897.5 / 1977.5 480 / 480
D5/0.45%NSS with KCL 10 MEQ 10 1560 / 1640 480 / 480
meq In 1,000 ml @ 80 mls/hr IV
.[id number] AMITA Rx#:[id number]
K rider 337.5 / 337.5
IV piggybacks 200 / 200
Output:
Urine, Voided 1774 / 1774 650 / 650
Laboratory Results
01/07/24 04:15
01/07/24 04:15
Physical Exam
-
General - no acute distress
Abdomen - soft, non-tender,
Genitalia - normal scrotal skin- left testicle normal- right remains somewhat firm- but minimally tender and no evid of infx
--- NOTE | 2024-01-07 08:00 | PTCARENOTE ---
Received patient from mine shifter. Patient is AAOx4, NIHSS at handoff, zero. Patient has weakness in LUE but no drift. Patient is in a sinus rhythm in 80s. He is on room air, spot check oxygen saturation at 97%. Patient is having occasional
productive cough, is current smoker. Patient has cholesterol lowering diet ordered, has been having bowel movements and is using the urinal. Right neck incision is intact yet grossly ecchymotic/swollen. Right groin incision has large amount of
serous drainage with KRISTEN drain alarming orange. Midline incision STERLING with tabatha. local erythema. Patient has ordered breakfast, was complaining of neck pain when coughing. Will review orders, call hernández within reach and can make needs known.
[2024-01-07] MEDS: MUCINEX 600 MG PO ×2 (08:02→20:03)
[2024-01-07] MEDS: NICODERM TRANSDERMAL TRANSDERM (08:02)
[2024-01-07] MEDS: FOLVITE 1 MG PO (08:02)
[2024-01-07] MEDS: PLAVIX 75 MG PO (08:02)
[2024-01-07] MEDS: LOW STRENGTH ASPIRIN 81 MG PO (08:02)
[2024-01-07] MEDS: VITAMIN B1 100 MG PO ×2 (08:02→20:03)
--- NOTE | 2024-01-07 08:16 | PTCARENOTE ---
US called for neck, holding breakfast
--- NOTE | 2024-01-07 09:22 | W.PN.VS ---
Today's Communication / Plan
-
Patient seen and examined at bedside below plan reviewed with attending.
Assessment/Plan
-
Assessment: 63 year old male POD #8 Aortobifemoral bypass and right femoral endarterectomy, POD #2 Right CEA
Plan:
-Urgent limited right-sided carotid ultrasound ordered with no evidence of extravasation on preliminary read, will continue to monitor swelling, encourage nursing staff to place intermittent cold compress to site
- Continue MSAS per protocol
- Continue PT/OT
� Will change KRISTEN dressing back to incisional wound VAC given continued serous drainage, will tentatively place on OR schedule for Wednesday for right groin washout and possible sartorius muscle flap
� Continue strict I and O
- Continue to encourage incentive spirometry
Subjective Data
-
Date of Service: January 07, 2024
Patient seen and examined at chair side, he reports new onset of right neck swelling accompanying with mild pain worsened when he swallows. Denies currently headache, fever, chills, nausea, vomiting, or worsening in left-sided weakness. He
actually does endorse continued improvement with left arm weakness. Denies any agitation, currently pleasant and eating his breakfast.
Objective Data
-
Vital Signs
Temp Pulse Resp BP Pulse Ox
99.7 F 78 15 161/86 98
01/07/24 07:32 01/07/24 08:00 01/07/24 08:00 01/07/24 08:00 01/07/24 08:21
Intake and Output
01/06/24 01/07/24 01/08/24
06:59 06:59 06:59
Intake Total 2097.5 / 2177.5 1350 / 1350
Output Total 1775 / 1775 650 / 650
Balance 322.5 / 402.5 700 / 700
Intake:
Oral fluids 870 / 870
IV fluids (Total) 1897.5 / 1977.5 480 / 480
D5/0.45%NSS with KCL 10 MEQ 10 1560 / 1640 480 / 480
meq In 1,000 ml @ 80 mls/hr IV
.[id number] [facility] Rx#:[id number]
K rider 337.5 / 337.5
IV piggybacks 200 / 200
Output:
Urine, Voided 1775 / 1775 650 / 650
Lab Results
01/07/24 04:15
01/07/24 04:15
Calcium 8.7 mg/dl (8.4-10.2) 01/07/24 04:15
Phosphorus 3.3 mg/dl (2.5-4.5) 01/05/24 04:20
Magnesium 2.1 mg/dl (1.6-2.3) 01/05/24 04:20
Physical Exam
-
Awake and alert.
No tachycardia
No dyspnea on room air
Right sided neck surgical incision CDI with noted edema not present at prior exam yesterday, non-pulsatile, and soft, suture line well approximated with intact Exofin glue
Abdomen soft, nondistended, nontender. Incision clean dry and intact, tabatha well approximated
Groins flat bilaterally. Left groin incision clean dry and intact. Right groin with moderately saturated kristen dressing. No erythema in either groins. No hematomas. Palpable femoral pulses bilaterally.
Feet are both pink and warm.
Stable left upper extremity neurologic exam with mild drift, continued improved strength and hand grasp compared to prior exams
Labs reviewed.
[2024-01-07 11:46] LABS: Glucose - Point of Care 138 mg/dl (70-99)
--- NOTE | 2024-01-07 12:28 | W.PN.NEURO.1 ---
Today's Communication / Plan
-
-Surgery following the right neck swelling and surgical wounds
-NIH and neurologic checks
-Aspiration precautions
-Goal normotension
-Aspirin/clopidogrel for total of 21 days, then stop clopidogrel and continue on aspirin
-Atorvastatin
Neuro Assessment/Plan
Assessment
63-year-old man presenting initially for aortobifemoral bypass and femoral endarterectomy developed alcohol withdrawal and then right MCA stroke due to symptomatic carotid stenosis
Doing okay from a stroke perspective no worsening of neurologic symptoms of the left facial droop dysarthria and left arm more than leg weakness
Subjective/Objective
Subjective Data
Date of Service: January 07, 2024
Patient with some pain with swallowing, swelling on right neck, no headache, change in speech or left arm or leg weakness
Objective Data
Vital Signs
Temp Pulse Resp BP Pulse Ox
99.4 F 61 17 167/73 98
01/07/24 11:30 01/07/24 10:00 01/07/24 10:00 01/07/24 09:00 01/07/24 08:21
Lab Results
01/07/24 04:15
01/07/24 04:15
PT 14.8 Sec (11.4-14.6) H 01/06/24 04:25
INR 1.15 01/06/24 04:25
APTT 29.1 Sec (23.4-35.0) 01/06/24 04:25
Sodium 138 mmol/L (135-145) 01/07/24 04:15
Potassium 3.9 mmol/L (3.5-5.1) 01/07/24 04:15
BUN 15 mg/dl (9-20) 01/07/24 04:15
Glucose 111 mg/dl (70-99) H 01/07/24 04:15
Calcium 8.7 mg/dl (8.4-10.2) 01/07/24 04:15
Phosphorus 3.3 mg/dl (2.5-4.5) 01/05/24 04:20
LDL Cholesterol, Calc 52 mg/dl 01/03/24 04:23
Vitamin B12 982 pg/ml (239-931) H 01/03/24 04:23
Patient Allergies
No Known Allergies Allergy (Verified 12/30/23 06:30)
LDL Level: <70, continue statin
Review of Systems
-
History Source: Patient
All other systems: Reviewed and negative
Constitutional: No Symptoms
EENT: No Symptoms Reported
Respiratory: No Symptoms
Cardiac: No Symptoms
Abdomen/GI: No Symptoms
Genitourinary: No Symptoms
Musculoskeletal: No Symptoms
Neuro: No Symptoms
Endocrine: No Symptoms
Hematologic / Lymphatic: No Symptoms
Allergy / Immunology: No Symptoms
Physical Exam
-
General: Comfortable
Eyes: No Ptosis
HEENT: Other (Right neck CEA incision clean dry intact, no obvious mass on palpation)
Neck: No Bruits Bilaterally
Respiratory: Clear to Auscultation
Cardiac: Regular Rhythm
GI: Normal Bowel Sounds
Skin: Unremarkable
Extremities: No Clubbing
Psych: Unremarkable
Extended Neurological Exam
Mood & Affect: Mood Unremarkable and Affect Unremarkable
Attention Span & Concentration: Awake, Alert and Interactive
Memory: Unremarkable
Tremor: Hand Tremor Absent
Involuntary Movement: None
Speech: Quality Unremarkable, Quantity Unremarkable and Dysarthric; Negative Expressive Aphasia or Receptive Aphasia
Cranial Nerve II: Left Eye: Pupillary Reactivity Unremarkable, Pupillary Size Unremarkable and Visual Montes Intact
Cranial Nerve II: Right Eye: Pupillary Reactivity Unremarkable, Pupillary Size Unremarkable and Visual Montes Intact
Cranial Nerves III, IV, : Extraocular Movement: Extraocular Movement Full in all Directions
Cranial Nerve VII: Facial Symmetry: Other (Left facial mild weakness)
Muscle Strength, Overall: Other (Left arm 4-/5 shoulder abduction 4/5 arm flexion, left leg mild 4+/5 hip flexion weakness)
Pronator Drift: Drift in Left Upper Extremity and Drift in Left Lower Extremity
Touch Sensation: Withdrawal to Pain
Coordination: Other (Mild ataxia left arm)
--- NOTE | 2024-01-07 13:06 | W.PN.UPDATE ---
Update Note
Progress Note Update
Seen and evaluated with MERRY Gomez. Patient overall without significant complaints currently. He had a little bit of a headache posteriorly overnight but resolved now. Right neck incision is clean dry and intact. No significant hematoma.
Neurologically moves all extremities now. Improved strength in left upper extremity and improved left hand movement but still slight discoordination of the left hand. Abdomen is soft, nondistended, nontender. Groins are flat bilaterally. Right
groin rosalio dressing was saturated with serous dried drainage. Removed by us. There is a small pinpoint site of serous drainage at the superior aspect of the incision. No surrounding erythema. No fluctuance. Palpable femoral pulses bilaterally.
Incisional VAC reapplied. Feet are both pink and warm and well-perfused.
Plan/ Persistent seroma status post recent aortobifemoral artery bypass. At this point, VAC dressing does not seem to be slowing the drainage down. Therefore I discussed with the patient my recommendation for surgical washout, clipping of any
potential seromatous sources, and sartorius muscle flap coverage. Discussed risk of infection without washout. That is my biggest concern. Discussed risks of procedure including but not limited to bleeding, infections, nerve injury. Discussed
this all with his over the phone as well. They both understand all wish to proceed. Therefore we will plan OR on Wednesday to washout groin and likely sartorius muscle flap coverage.
--- NOTE | 2024-01-07 13:34 | PTCARENOTE ---
Patient now has wound vac applied to right groin, Ambulated hallway with PT. Patient is potentially going to be downgraded, will continue to monitor the output from wound VAC for possible washout Wednesday.
--- NOTE | 2024-01-07 15:21 | CM ---
Addendum entered by ANASTACIO Walters 01/07/24 15:39:
Only [facility] populated in [facility]. Texted Caterina in admissions at [place]. She stated that she will check to see if referral went through.
Original Note:
Received message from Darlene in PT that patient would be a good acute rehab candidate. Dr. Patel consulted. Will make referral to Caterina in admissions at [place].
Plan: Case management will continue to follow and assist with discharge planning. Tentative plan is for acute rehab.
--- NOTE | 2024-01-07 16:17 | CON.MR ---
Consultation
Consultation Request
Date/Time Consultation Performed: 01/07/24 1600
Performing Provider: Dr. Reid
Reason for Consultation: CVA
Medical History
-
Chief Complaint: Weakness
History of Present Illness:
I had the opportunity to see Daniel Danielle in rehabilitation consultation today. Briefly this is a 63 year old male with occlusive peripheral artery disease in the infrarenal abdominal aorta and iliac arteries initially admitted for elective open
aortobifemoral bypass and right femoral endarterectomy on 12/30/23. Post-operative course was noted with some mental status change on 01/01 with hypertension but CTH was negative but some agitation limited complete evaluation. On 01/02 was noted wtih
increased left sided weakness and neglect, and CT angiogram noted with right ICA stenosis, and MRI did reveal right sided MCA strokes. Did have Right carotid endarterectomy performed for the stenosis on 01/05/24. Post-op course after the CEA has
been relatively unremarkable so far, but did note some increased drainage form the R hip/thigh incision today.
Patient was seen at bedside this afternoon in room with present. He states no current headache but did have a headache the other day. No vision changes or blurry or double vision. Describes a chronic numbness and tingling in the hands and
feet after a central cord syndrome injury maybe 20 years ago. But denies any new or worsening changes. No other pain in the upper or lower limb. No chest pain, SOB, GI complaints. Some right sided neck pain at the incision but states it is
better now than earlier today.
Lives with in [facility] with 2 steps to enter front door but does have a 1st floor bed/bath setup. No previous use of cane or assistive device.
Past Medical History
Past Medical History: HTN, Hypercholesterolemia and Other (Central cord syndrome)
Family History
Family History: Reviewed & Not Pertinent
Social History
Functional Level Premorbidity:
Independent for all activities.
Current Funct Level: Ambulation, Transfer, UE/LE Dressing:
Supervision for bed mobility, Min A transfers, min A ambulation in room.
Tobacco: Smoker
Alcohol: Daily
Drug: None
Personal:
Living: With Family
Number of Floors: 2
# Steps to Enter: 2
Potential First Floor Set Up: Yes
Driving: Yes
Employment: Employed
Allergies / Home Medications
Allergy/AdvReac Type Severity Reaction Status Date / Time
No Known Allergies Allergy Verified 12/30/23 06:30
�Medication �Instructions �Recorded �Confirmed �Last Taken �Type
aspirin 81 mg capsule 81 mg PO QPM Blood Clot 12/22/23 12/30/23 12/29/23 16:00 History
Prevention/Tx
atorvastatin 20 mg tablet 20 mg PO QPM High Cholesterol 12/22/23 12/30/23 12/29/23 16:00 History
valsartan 160 mg tablet 160 mg PO QPM Blood Pressure 12/22/23 12/30/23 12/29/23 16:00 History
amlodipine 5 mg tablet 5 mg PO QPM Blood Pressure 12/30/23 12/30/23 12/29/23 16:00 History
pregabalin 150 mg capsule (Lyrica) 150 mg PO DAILYPRN PRN pain 12/30/23 12/30/23 12/29/23 14:00 History
sildenafil 100 mg tablet (Viagra) 100 mg PO DAILY PRN as needed 12/30/23 12/30/23 12/29/23 17:00 History
Review Of Systems
-
History Source: Patient
All other systems: Negative unless noted
Constitutional: Reports No Symptoms
Eye: Reports No Symptoms
EENT: Reports No Symptoms
Respiratory: Reports No Symptoms
Cardiac: Reports No Symptoms
Abdomen/GI: Reports No Symptoms
: Reports No Symptoms
Musculoskeletal: Reports Muscle Pain
Integumentary: Reports No Symptoms
Neurological: Reports Weakness and Numbness
Psych: Reports No Symptoms
Endocrine: Reports No Symptoms
Hematologic/Lymphatic: Reports No Symptoms
Immunology: Reports No Symptoms
Physical Exam
Active Medications
Generic Name Dose Route Start Last Admin
Trade Name Freq PRN Reason Stop Dose Admin
Acetaminophen 650 mg 01/06/24 11:25 01/06/24 16:06
Acetaminophen 325 Mg Tablet PO 02/03/24 11:24 650 mg
Q4HPRN PRN Administration
MILD PAIN/TEMP
Albuterol Sulfate 2.5 mg 01/03/24 08:34
Albuterol Nebs 2.5 Mg/3 Ml Ampul INH
R Q4HPRN PRN
wheezing
Protocol
Amlodipine Besylate 5 mg 01/04/24 18:00 01/06/24 18:41
Amlodipine 5 Mg Tablet PO 02/01/24 17:59 5 mg
QPM AMITA Administration
Aspirin 81 mg 01/04/24 08:00 01/07/24 08:02
Aspirin 81 Mg Chewable Tablet PO 02/01/24 07:59 81 mg
DAILY AMITA Administration
Atorvastatin Calcium 20 mg 01/03/24 20:00 01/06/24 18:41
Atorvastatin (Lipitor) 20 Mg Tablet PO 01/31/24 19:59 20 mg
QPM AMITA Administration
Bisacodyl 10 mg 12/30/23 13:43 01/04/24 09:50
Bisacodyl 10 Mg Rectal Suppository RECTAL 01/27/24 13:42 10 mg
DAILYPRN PRN Administration
constipation
Clopidogrel Bisulfate 75 mg 01/05/24 17:00 01/07/24 08:02
Clopidogrel 75 Mg Tablet PO 01/24/24 16:59 75 mg
DAILY AMITA Administration
Enoxaparin Sodium 40 mg 01/03/24 18:00 01/06/24 18:41
Enoxaparin Sodium 40 Mg/0.4 Ml Syringe SC 01/31/24 17:59 40 mg
QPM AMITA Administration
Folic Acid 1 mg 01/04/24 08:00 01/07/24 08:02
Folic Acid 1 Mg Tablet PO 02/01/24 07:59 1 mg
DAILY AMITA Administration
Guaifenesin 600 mg 01/03/24 20:00 01/07/24 08:02
Guaifenesin 600 Mg Extended Release Tablet PO 01/31/24 19:59 600 mg
Q12 AMITA Administration
Hydralazine HCl 5 mg 01/04/24 10:08
Hydralazine 20 Mg/Ml Vial IV 02/01/24 10:07
Q6HPRN PRN
SBP >180
Hydromorphone HCl 0.5 mg 01/03/24 21:32 01/05/24 08:21
Hydromorphone 0.5 Mg/0.5 Ml Syringe IV 01/17/24 21:31 0.5 mg
Q3HPRN PRN Administration
moderate pain
Naloxone HCl 0.04 mg 12/30/23 14:55
Naloxone (0.4 Mg/Ml) 1 Ml Injection IV 01/27/24 14:54
Q2MPRN PRN
RR </= 10/min / Pasero scale=4
Nicotine 14 mg 12/31/23 11:00 01/07/24 08:02
Nicotine 14 Mg Patch TRANSDERM 01/28/24 10:59 Not Given
DAILY AMITA
Patch Removal 0 patch 12/31/23 22:00 01/06/24 23:11
Remove Nicotine Patch REMOVE 01/28/24 21:59 1 patch
HS AMITA Administration
Prochlorperazine Edisylate 5 mg 01/05/24 19:17 01/06/24 23:12
Prochlorperazine 10 Mg/2 Ml Vial IV 02/02/24 19:16 5 mg
Q6HPRN PRN Administration
nausea/vomiting/headache
Sodium Chloride 0 flush 12/30/23 08:00
Sodium Chloride 0.9% (Flush) Syringe IV 01/27/24 07:59
PER PROTOCOL AMITA
Sodium Chloride 0.9 ml 12/30/23 14:55 01/02/24 13:39
Sodium Chloride 0.9% (Preservative Free) 10 Ml Vial IV 01/27/24 14:54 0.9 ml
Q2MPRN PRN Administration
naloxone dilution
Thiamine HCl 100 mg 01/02/24 20:00 01/07/24 08:02
Thiamine 100 Mg Tablet PO 01/30/24 19:59 100 mg
BID AMITA Administration
Valsartan 160 mg 01/04/24 18:00 01/06/24 18:40
Valsartan 80 Mg Tablet PO 02/01/24 17:59 160 mg
QPM AMITA Administration
Vital Signs
Temp Pulse Resp BP Pulse Ox
99.4 F 74 23 150/85 98
01/07/24 11:30 01/07/24 15:06 01/07/24 15:06 01/07/24 15:06 01/07/24 08:21
Height 5 ft 5 in
Actual Weight 66.7 kg
Body Mass Index (BMI) 24.5
Physical Exam
Physical Exam:
General Appearance/Observation: Well-developed, well-nourished individual in no apparent distress. Lying comfortably in bed. Pleasant and appropriate
Pain/Comfort Assessment: 1-2/10 in right neck
Mood/Affect: Appropriate
Integumentary/Operative Site:
Right neck: Clean and dry and intact. Mild swelling but no warmth.
Right femoral: Wound vac in place
Eyes: Conjunctiva/Lids: normal Pupils: pupils equal round and reactive to light and Accommodation
Ears/Nose/Throat: oral mucosa moist, throat clear. Lips/Teeth/Gums: normal
Neck: No muscle spasm or tenderness
Cardiovascular: Heart: regular, no murmur
Pulses: dorsalis pedis 2+ bilaterally
Respiratory: Respiratory Effort/Chest Expansion: normal Auscultation: Clear to auscultation bilaterally
Gastrointestinal: abdomen not tender, no distension, normal abdominal bowel sounds
Extremities: Edema: 1+ thigh more than leg edema right more than left Cyanosis: None Trophic changes: None
Neurology Exam:
Orientation: Alert, Oriented to self, Time, Place
Memory: Intact immediately and at 3 minutes
Higher cortical function
Speech: Intact
Repetition: Intact
Comprehension: Intact
Two step command: Intact
Naming: Intact
Cranial Nerves:
CNII: Pupillary light reflex: Intact Visual Field: Intact
CN III, IV, : Extraocular muscles: Intact
CN V: Facial Sensation at Forehead: Intact , Maxilla: Intact, Mandible: Intact
CN VII: Facial movement: Very slight asymmetry/weakness on left only
CN VIII: Hearing: Normal
CN IX/X: Speech & swallow: Normal, Position of Uvula: Midline
CN XI: Shoulder shrug: Symmetric
CN XII: Tongue protrusion: Midline
Sensory:
Light touch: Intact in bilateral upper and lower extremities. Denies any asymmetry in the toes and fingers.
Reflexes:
Babinski: Downgoing bilaterally
Clonus: None
Monroe: Negative bilaterally
Cerebellar: Dysmetria/Ataxia: Mild dysmetria on the left, no tremor or ataxia.
Musculoskeletal:
Motor: (Manual muscle scale 0-5)
Muscle SA EF WE EE FF FA HF KE DF EHL PF
Right 5 5 5 5 5 5 5 5 5 5
Left 4 5 5 4 3 3 5 5 5 5
Tone: Normal in all extremities
Range of Motion: Passively within normal limits in all extremities
Lab Results
01/07/24 04:15
01/07/24 04:15
WBC 14.3 10^3/uL (4.8-10.8) H 01/07/24 04:15
Hgb 9.2 g/dL (13.0-18.0) L 01/07/24 04:15
Hct 27.0 % (39.0-52.0) L 01/07/24 04:15
MCV 89.7 fL (80.0-94.0) 01/07/24 04:15
Plt Count 481 10^3/uL (130-400) H D 01/07/24 04:15
PT 14.8 Sec (11.4-14.6) H 01/06/24 04:25
INR 1.15 01/06/24 04:25
Sodium 138 mmol/L (135-145) 01/07/24 04:15
Potassium 3.9 mmol/L (3.5-5.1) 01/07/24 04:15
Chloride 110 mmol/L (98-107) H 01/07/24 04:15
Carbon Dioxide 21 mmol/L (22-30) L 01/07/24 04:15
BUN 15 mg/dl (9-20) 01/07/24 04:15
Creatinine 0.8 mg/dL (0.7-1.3) 01/07/24 04:15
eGFR > 60.00 01/07/24 04:15
Glucose 111 mg/dl (70-99) H 01/07/24 04:15
Hemoglobin A1c 5.3 % (4.0-5.6) 01/03/24 04:23
Calcium 8.7 mg/dl (8.4-10.2) 01/07/24 04:15
Phosphorus 3.3 mg/dl (2.5-4.5) 01/05/24 04:20
Magnesium 2.1 mg/dl (1.6-2.3) 01/05/24 04:20
Diagnostic Results
As per HPI.
Comorbidities / Impairment Group
Comorbidities:
Peripheral artery disease, recent CEA and Femoral bypass
Impairment Group:
CVA, Left hemiparesis
Assessment / Plan
Plan
Assessment:
63 year old male wtih peripheral arterial disease, now s/p recent aorto-bifemoral bypass and right femoral endarterectomy but post op CVA, L hemiparesis, right carotid stenosis and now s/p right CEA.
PM&R PT/OT to increase independence with ADLs, improve balance, coordination, endurance, strength, mobility, community reintegration, decreased burden of care on others and family education.
CVA: Secondary prophylaxis with aspirin, statin, plavix x 21 days. Blood pressure control (SBP less than 180 and diastolic less than 100 to participate with therapy for ischemic stroke). Continue to monitor neurologic status.
Left nondominant hemiparesis: High risk for falls and sliding out of chair/bed. Safety reinforced.
- Avoid using affected arm to help lift or pull patient as this will cause trauma to the shoulder.
Left Neglect: Possibly resolved today - some mild apraxia on the left only
Dysphagia: speech evaluation, oral care protocol, chlorhexidine rinse after meals and HS, aspiration precautions. Advance diet as tolerated.
Aorto-bifemoral bypass and R femoral endarterectomy: Monitor incisions, pain control. Has wound vac on , but some increased drainage - sounds like plan for further surgery to close/repair on Wednesday. Will likely be bed rest post operatively for
couple of days - will re-assess after getting up with therapy once able to mobilize.
HTN: continue medications, monitor closely
HLD: Statin
Alcohol use: Watch for possible withdrawl.
History of testicular torsion: monitor
Hx of central cord syndrome: Old - no new changes. Monitor for now.
Psych: Psychology consult. Monitor mood, adjust medications as needed.
Skin: monitor for pressure sores/rashes/lesions.
Pain: acetaminophen or pain meds as needed.
Bowel: Colace and Senna, PRN bisacodyl.
Bladder: Time void, PVRs, PRN straight cath.
Alcohol Abuse: Alcohol cessation education, consideration of outpatient alcohol abuse program
Tobacco Abuse: Smoking cessation counseling.
DVT Prophylaxis: is on lovenox
Pulmonary: Incentive spirometry
Safety: Continue to reinforce assistance with all transfers.
Code Status: Full code
Dispo (date/plan/equipment needs): Eventual home with family care. Social history reviewed.
Functional and Medical Goals: Modified Independent with ADL�s, ambulation, transfers
Summary
-
Things that must be addressed in Hospital prior to discharge:
1. Please continue bedside PT/OT - may need to be bed rest after procedure on Wednesday.
2. Patient must be stable on oral pain medications.
3. Blood pressure must be less than 180 systolic and 100 diastolic for 24 hours before being stable for transfer to SNF/acute rehab.
4. Please give recommendations for any further blood pressure parameters.
5. Please comment on ROM, bracing and weight bearing precautions post-operatively.
6. Please comment on dvt chemoprophylaxis restrictions before transfer to rehab and post-operatively.
Discharge Destination: TBD: Could consider transfer to acute rehab based on current functional capacity today - requiring Min A for mobility and ambulation, L weakness, balance, safety, etc. But is currently planned for another surgical procedure
on Wednesday and may likely be on bed rest post-op. Will need to re-assess his functional status next week once able to stand/weightbear and mobilize with the RLE. Would likely expect still L sided deficits post stroke that will require rehabilitation
before discharge home, but will need to assess recovery or even possible worsening post-op.
Summary of recommendations:
- Discharge Destination: Possible acute rehab after surgical treatment - will re-assess next week..
Will continue to follow patient.
Thank you for allowing me to care for your patient. Please contact me with any questions or concerns.
Data Reviewed
-
Radiology: Report Reviewed by me
Labs: Labs Reviewed by me
Comments
-
This note was dictated using a voice recognition system. Please excuse any typographical errors from machine stonecutter. If you believe there are any discrepancies, please notify our office.
[2024-01-07] MEDS: LIPITOR 20 MG PO (17:29)
[2024-01-07] MEDS: NORVASC 5 MG PO (17:29)
[2024-01-07] MEDS: DIOVAN 160 MG PO (17:30)
[2024-01-07] MEDS: LOVENOX 40 MG SC (17:31)
--- NOTE | 2024-01-07 21:30 | PTCARENOTE ---
Report received from previous shift RN [id number]. Tandem NIHSS performed w offgoing shift RN, see flowsheet for full details. Pt is AAO3, MSAS 1, LUE weakness noted. Lung sounds coarse/decreased throughout, oc moist productive cough w silverman sputum, pox 97%
on room air. Telemetry rhythm reveals SR, HR 70's, edema noted to R neck incision, peripheral pulses present. HyperBS, loose stools reported. Urinal at bedside. Staff assisting pt to bathroom, pt using rolling walker. R AC and L FA int's flushed and
patent, capped. 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 Call hernández within reach, safe environment
maintained. Will monitor closely.
[2024-01-07 21:48] LABS: Glucose - Point of Care 153 mg/dl (70-99)
[2024-01-08] VITALS (14 sets, daily range): BP systolic 113–174; BP diastolic 61–94; O2SAT 95; BMI 23.3
--- NOTE | 2024-01-08 01:30 | PTCARENOTE ---
Pt intermittently sleeping when undisturbed. PCT assisted pt to BR for bm, stated stool was 'black/brown,' collection hat placed in toilet to be able to obtain specimen for heme testing. No change in pt assessment. Will monitor.
[2024-01-08 05:21] LABS: Hematocrit 28.2 % (39.0-52.0); Hemoglobin 9.6 g/dL (13.0-18.0); Mean Corpuscular Hgb 31.3 pg (27.0-31.0); Mean Corpuscular Volume 91.9 fL (80.0-94.0); Mean Platelet Volume 9.5 fL (7.4-10.4); Platelet Count 530 10^3/uL (130-400); Red Blood Cell Count 3.07 10^6/uL (4.70-6.10); Red Cell Dist. Width 14.3 % (11.5-14.5); White Blood Cell Count 16.9 10^3/uL (4.8-10.8)
[2024-01-08 05:46] LABS: Blood Urea Nitrogen 14 mg/dl (9-20); Calcium 8.8 mg/dl (8.4-10.2); Carbon Dioxide 24 mmol/L (22-30); Chloride 106 mmol/L (98-107); Estimated Creatinine Clearance 94 ml/min; Glucose 108 mg/dl (70-99); Magnesium 1.9 mg/dl (1.6-2.3); Potassium 3.5 mmol/L (3.5-5.1); Sodium 140 mmol/L (135-145); eGFR > 60.00
[2024-01-08] MEDS: KCL 270 MEQ IV (06:10)
[2024-01-08] MEDS: MAGNESIUM SULFATE 100 IV (06:18)
--- NOTE | 2024-01-08 06:28 | PTCARENOTE ---
Pt reporting dry throat discomfort. Vascular PA rounding on pt and aware. PA also aware that R groin wound vac without output throughout shift.
KCL and Mag riders infusing per orders. Report to be given to oncoming shift shortly.
--- NOTE | 2024-01-08 06:48 | W.PN.VS ---
Addendum entered and electronically signed by Mic Velázquez MD 01/08/24 10:58:
Seen and examined. Agree with MERRY Chong findings below. Of note since then nursing notes dark black stool that patient had that tested heme positive. Patient himself is without any complaints currently. I saw him sitting up in a chair and he
looks very bright. He is without any complaints currently. However he does note that overnight he gets dryness in his throat that bothers him. No difficulty swallowing currently.
Afebrile. Awake and alert. Abdomen soft, nondistended, nontender. Incision clean dry and intact. Groins flat bilaterally. Right incisional VAC in place with no drainage. Palpable femoral pulses bilaterally. No erythema in either groin. No
significant hematoma in either groin. Feet are both pink and warm and well-perfused. Neurologically continues to improve with improving left upper extremity and left hand intrinsic strength.
Labs reviewed.
Plan/ As discussed and noted below. In addition we will add Protonix PPI.
Original Note:
Today's Communication / Plan
-
Discussed with Dr. Velázquez
Assessment/Plan
-
Assessment: 63 year old male POD # 9 aortobifemoral bypass and right femoral endarterectomy, POD # 3 right CEA
Plan:
- Continue MSAS per protocol
- Continue PT/OT
� Continue wound VAC, plan for OR Wednesday for right groin washout and possible sartorius muscle flap
� Continue strict I and O
- Continue to encourage incentive spirometry
- Downgrade 2North/2south
- As needed Chloraseptic spray for sore/dry throat
Subjective Data
-
Date of Service: January 08, 2024
Patient seen at bedside this a.m. patient complains of a dry throat this a.m. no other complaints. No events overnight. VAC intact with no output
Objective Data
-
Vital Signs
Temp Pulse Resp BP Pulse Ox
99.7 F 67 16 152/61 97
01/08/24 05:04 01/08/24 06:00 01/08/24 05:00 01/08/24 06:00 01/08/24 00:09
Intake and Output
01/06/24 01/07/24 01/08/24
06:59 06:59 06:59
Intake Total 2097.5 / 2177.5 1350 / 1350 857.5 / 857.5
Output Total 1774 650 / 650 100 / 100
Balance 322.5 / 402.5 700 / 700 757.5 / 757.5
Intake:
Oral fluids 870 / 870 690 / 690
IV fluids (Total) 1897.5 / 1977.5 480 / 480
D5/0.45%NSS with KCL 10 MEQ 10 1560 / 1640 480 / 480
meq In 1,000 ml @ 80 mls/hr IV
.[id number] [facility] Rx#:[id number]
K rider 337.5 / 337.5
IV piggybacks 200 / 200 167.5 / 167.5
Output:
Urine, Voided 1774 650 / 650 100 / 100
Other:
Number of approximated MODERATE 1
amounts of urine
Lab Results
01/08/24 05:00
01/08/24 05:00
Calcium 8.8 mg/dl (8.4-10.2) 01/08/24 05:00
Phosphorus 3.3 mg/dl (2.5-4.5) 01/05/24 04:20
Magnesium 1.9 mg/dl (1.6-2.3) 01/08/24 05:00
Physical Exam
-
AAOx3
No tachycardia
No dyspnea
Right sided neck surgical incision CDI with scant edema, non-pulsatile, and soft, suture line well approximated with intact glue
Abdomen soft, nondistended, nontender. Incision clean dry and intact, tabatha well approximated
Groins flat bilaterally. Left groin incision clean dry and intact. Right groin with intact wound VAC. No erythema in either groins. No hematomas. Palpable femoral pulses bilaterally.
Feet are both pink and warm.
Stable left upper extremity neurologic exam with mild drift, continued improved strength and hand grasp compared to prior exams
Hemoglobin 9.6, WBC 16.9
--- NOTE | 2024-01-08 07:51 | W.PN.INTV ---
Today's Communication / Plan
Recommendations
Telem
Reconsult prn
Assessment
-
-
Assessment:
Mr Daniel Danielle is a 63 year old male patient scheduled for aortobifemoral bypass surgery with Dr. Velázquez for chronic limb threatening ischemia with severe multilevel peripheral arterial disease bilateral (left greater than right) lower extremities,
surgery done 12-29.
Impression:
Status post bifemoral aortic bifemoral bypass due to severe peripheral occlusive arterial disease: 12-29
Alcohol withdrawal.
R testicular torsion with vascular compromise, identified 01-02
Acute LUE weakness, 90% stenosis R carotid bulb, 01-02, acute ischemic stroke: s/p L CEA 01-04
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
HTN
'Central' cord syndrome
PAD
Current Tobacco Use
ETOH abuse
PLAN:
Severe multilevel PAD
Post op day #8 on 01-06
Vascular surgery following closely
Continue neurovascular checks per protocol
Patient is hypertensive, likely compounded by alcohol withdrawal
Advanced diet today as rec by Vasc Sx
Discontinued Lee
Pending surgical washout, clipping of any potential seromatous sources, and sartorius muscle flap coverage: M 01-09
Acute LUE weakness afternoon 01-[address] s/c negative
CTA head 90% stenosis of R carotid bulb
MRI brain 01-02: scattered foci of restricted diffusion on the right in the parietal occipital lobes, consistent with acute/subacute infarcts, likely embolic, nonhemorrhagic.
Avoid hypotension
Resume outpatient valsartan and then amlodipine 01-03
ASA 81 mg qd
Thrombolysis contraindicated due very recent vascular surgery
R CEA done with no incident 01-04
Speech following, seen 01-05, no evidence of O/P dysphagia, rec reg diet with thin liquids
Neurology following: improved LUE weakness 01-05, start ASA/clopidogrel protocol
Patient reported mild R neck pain and swelling 01-06, R carotid US ordered, pending report at EMR but already dictated by Dr Velázquez
Severe alcohol withdrawal: resolved
Weaned off precedex drip 01-02
Was [address] for CT head on adm
Psychiatry consulted, recs appreciated- continue ativan IV fleeting doses, changed to prn 01-05
Psych signed off 01-05
Swollen, tender, erythematous scrotum and testicles: 01-02
POC US 01-02 with enlargement of R testicle and presence of necrotic areas, normal appearing L testicle
U/S testicles 01-02:
R testicle: no arterial flow is demonstrated suggesting R testicular torsion, venous flow is demonstrated, R testicle is heterogeneous in echotexture measuring 4.4 x 2.7 x 4.0 cm
L testicle: normal flow, size, contour, measuring 4.8 x 3.4 x 3.4 cm, there is a 1 cm left epididymal cyst
Emergent urology evaluation 01-02 appreciated: doubt true R testicular torsion. The likelihood of meaningful blood flow anglican given the time course and etiology is extremely remote and very high risk given current clinical situation
Rec: clinical observation only, no surgical indication, stated will follow peripherally since after January 04
Pain management: high dose IV APAP ATC, changed to IV prn 01-05 as testicular symptoms improved significantly
Follow clinically, so far no evidence of cellulitis or Janneth's gangrene
No current indication for empiric atbs for urologic reason
Smoking cessation: Nicotine patch at 14 mg qd
Emphysema on CT of the abdomen pelvis: Possible COPD given ongoing smoking.
Started albuterol Nebs tid and prn, guaifenesin 01-02
Change O2 nebs to as needed only for now on January 04
No current need for systemic CSs
Will benefit from outpatient pulmonary evaluation and lung cancer screening, left BCMA information in chart
DVT prophylaxis with subcu heparin
Continue PT/OT
Inpatient Rehab consultation 01-06 appreciated, to reassess next week for potential transfer to acute rehab
D/w Eber Sibley and Tiffanie 01-02
D/w Dr Lee 01-03, he will update family with all above issues
D/w RN
Transferring to telem 01-07
Reconsult prn
Subjective Dataa
Subjective Data
Date of Service:
Date of Service: January 08, 2024
Chief Complaint: Steward/Stewardess Lounge Follow Up (Status post aortic bifemoral bypass.)
Subjective:
No major events reported overnight
Significant overall improvement continues
In great spirits
Being transferred to telemetry today
Review of Systems
General: Fever (n), Sweats (n), Chills (n) and Satisfactory Appetite
Cardiopulmonary: Dyspnea (n), Cough (n), Wheezing (n), Chest Pain (n) and Lower Extremity Pain (n)
GI: Abdominal Pain (n), Nausea (n) and Vomiting (n)
Neuro: Weakness (n)
Objective Data
Data Reviewed
Vital Signs / I&O / Oxygen:
Vital Signs
Temp Pulse Resp BP Pulse Ox
99.6 F 82 16 155/90 97
01/08/24 07:19 01/08/24 07:10 01/08/24 07:10 01/08/24 07:10 01/08/24 00:09
Intake and Output
01/07/24 01/08/24 01/09/24
06:59 06:59 06:59
Intake Total 1350 / 1350 857.5 / 857.5
Output Total 650 / 650 100 / 100
Balance 700 / 700 757.5 / 757.5
SaO2 97
Nasal Cannula flow liters per 2
minute
Physical Exam
General: Respiratory Distress (n)
HEENT: Normocephalic and Moist Mucous Membranes
Cardiovascular: S1-S2, Regular Rhythm, Murmur (n), JVD (n), Peripheral Edema (n) and Calf Tenderness (n)
Respiratory: Rhonchi (Few scattered), Non-Labored Respirations and Stridor (n)
GI: Soft, Non Distended, Non Tender, Normal Bowel Sounds and Other (resolving swelling, resolved tenderness of testicles)
Neurology: Awake, AO x 3, No Motor Deficits, Other (Left upper extremity weakness resolving) and Other (agitation resolved)
Skin: Warm
Labs/Micro/Reports
Lab Data
01/08/24 05:00
01/08/24 05:00
[2024-01-08] MEDS: LOW STRENGTH ASPIRIN 81 MG PO (07:53)
[2024-01-08] MEDS: PLAVIX 75 MG PO (07:53)
[2024-01-08] MEDS: MUCINEX 600 MG PO ×2 (07:53→20:15)
[2024-01-08] MEDS: NICODERM TRANSDERMAL 14 MG TRANSDERM (07:53)
[2024-01-08] MEDS: FOLVITE 1 MG PO (07:53)
[2024-01-08] MEDS: VITAMIN B1 100 MG PO ×2 (07:53→20:15)
[2024-01-08] MEDS: CHLORASEPTIC/SORE THROAT SPRAY 1 SPRAY PO (09:20)
--- NOTE | 2024-01-08 10:30 | PTCARENOTE ---
Received pt this am with only c/o sore throat. Intermittently coughing when taking meds, but no issues when pt cued to swallow with head down to swallow. Pt does [place], mild l sided weakness noted. Able to ambulate to bathroom while pushing wound
vac on iv pole without assistance. Dark stool, heme + noted today. Dr Velázquez aware, ppi to be added. Otherwise please refer to assessment. Report to Shyanne who will assume care of pt upon transfer. Sister in law Tova present at time of transfer.
Belongings from room sent with pt.
[2024-01-08] MEDS: TYLENOL 650 MG PO (11:44)
[2024-01-08] MEDS: PROTONIX 20 MG PO (11:45)
[2024-01-08] MEDS: LIPITOR 20 MG PO (17:14)
[2024-01-08] MEDS: NORVASC 5 MG PO (17:15)
[2024-01-08] MEDS: DIOVAN 160 MG PO (17:15)
[2024-01-08] MEDS: LOVENOX 40 MG SC (17:16)
[2024-01-09] MEDS: TYLENOL 650 MG PO ×2 (03:23→20:50)
[2024-01-09 03:26] VITALS: BP 158/78
[2024-01-09 06:00] VITALS: BMI 23.1
[2024-01-09 07:30] VITALS: BP 184/91
[2024-01-09] MEDS: PROTONIX 20 MG PO (08:52)
[2024-01-09] MEDS: MUCINEX 600 MG PO ×2 (08:52→20:49)
[2024-01-09] MEDS: VITAMIN B1 100 MG PO ×2 (08:52→20:50)
[2024-01-09] MEDS: FOLVITE 1 MG PO (08:52)
[2024-01-09] MEDS: LOW STRENGTH ASPIRIN 81 MG PO (08:52)
[2024-01-09] MEDS: NICODERM TRANSDERMAL 14 MG TRANSDERM (08:53)
[2024-01-09] MEDS: PLAVIX 75 MG PO (08:53)
[2024-01-09 09:11] LABS: Hematocrit 25.2 % (39.0-52.0); Hemoglobin 8.5 g/dL (13.0-18.0); Mean Corp Hgb Conc. 33.7 g/dL (33.0-37.0); Mean Corpuscular Hgb 31.5 pg (27.0-31.0); Mean Corpuscular Volume 93.3 fL (80.0-94.0); Mean Platelet Volume 9.2 fL (7.4-10.4); Platelet Count 666 10^3/uL (130-400); Red Cell Dist. Width 14.6 % (11.5-14.5)
[2024-01-09 09:23] LABS: Blood Urea Nitrogen 15 mg/dl (9-20); Calcium 8.6 mg/dl (8.4-10.2); Carbon Dioxide 25 mmol/L (22-30); Chloride 107 mmol/L (98-107); Estimated Creatinine Clearance 82 ml/min; Glucose 151 mg/dl (70-99); Potassium 3.3 mmol/L (3.5-5.1); Sodium 141 mmol/L (135-145); eGFR > 60.00
[2024-01-09 11:05] VITALS: BP 185/91
--- NOTE | 2024-01-09 11:32 | PHA.VAN.IN ---
Assessment
- Assessment
Renal Function: Appears similar to baseline
Maximum Temperature: 100.5
Minimum Temperature: 98.7
AUC Dosing Plan
- Empiric Dosing
Initial / Loading Dose: Vanc 1500mg--administration pending
Maintenance Regimen: Vanc 750mg IV H10R--akprjugmj 01/09 at 0600
Estimated AUC (mcg*h/mL): 486
Estimated Peak (mcg*h/mL): 29
Estimated Trough (mcg/ml): 13
Estimated Half Life (H): 9.6
- Monitoring
No levels ordered at this time: Consider levels after 01/10 1800 dose
Pharmacokinetics Vancomycin I
- -
Patient Age: 63
Patient Sex: Male
Vancomycin Day #: 1
Indication: Other
Requesting Provider: Eber
Height / Weight:
Height 5 ft 5 in
Actual Weight 63.095 kg
IBW in k.5
Adjusted BW in k.1
- Vital Signs / Lab Results
Temp Pulse Resp BP Pulse Ox
100.5 F H 103 16 184/91 97
01/09/24 03:26 01/09/24 07:30 01/09/24 07:30 01/09/24 07:30 01/09/24 07:30
Lab Results - Hematology
01/07/24 01/08/24 01/09/24
04:15 05:00 08:56
WBC 14.3 H 16.9 H 17.0 H
Lab Results - Chemistry
01/07/24 01/08/24 01/09/24
04:15 05:00 08:56
BUN 15 14 15
Creatinine 0.8 0.7 0.8
Estimated Creat Clear 82 94 82
--- NOTE | 2024-01-09 11:36 | W.PN.VS ---
Today's Communication / Plan
-
See plan below for today 01/09/2024.
Assessment/Plan
-
POD#10 ABF, POD#4 R CEA
� Dressings with Tegaderm applied to right neck as well as right groin. White blood cell count slightly up and slightly febrile 100.5. Based on all this we will cover with antibiotics as his preoperative nasal swabs were positive for MRSA. Will
cover with vancomycin. Follow closely. Plan for possible washout and sartorius flap of the right groin tomorrow. However if no further drainage, may hold off. Will closely keep an eye on the right neck incision as well.
-
Total Time Spent with Patient (in minutes): 15
Subjective Data
-
Date of Service: January 09, 2024
Patient notes to me he had a little bit of drainage from the right neck incision early this morning. He thinks it may have been related to increased activity yesterday. No significant pain. No other complaints. Denies any worsening of his stroke
symptoms (in fact continues to improve he notes). No other complaints.
Objective Data
-
Vital Signs
Temp Pulse Resp BP Pulse Ox
100.5 F H 103 16 184/91 97
01/09/24 03:26 01/09/24 07:30 01/09/24 07:30 01/09/24 07:30 01/09/24 07:30
Intake and Output
01/08/24 01/09/24 01/10/24
06:59 06:59 06:59
Intake Total 857.5 / 857.5 1080 / 1080
Output Total 100 / 100
Balance 757.5 / 757.5 1080 / 1080
Intake:
Oral fluids 690 / 690 1079 / 1080
IV piggybacks 167.5 / 167.5
Output:
Urine, Voided 100 / 100
Other:
Number of approximated MODERATE 1 2
amounts of urine
Number of approximated LARGE 2
amounts of urine
Number of unmeasured liquid
stools
Rectum 1
Lab Results
01/09/24 08:56
01/09/24 08:56
Calcium 8.6 mg/dl (8.4-10.2) 01/09/24 08:56
Phosphorus 3.3 mg/dl (2.5-4.5) 01/05/24 04:20
Magnesium 1.9 mg/dl (1.6-2.3) 01/08/24 05:00
Physical Exam
-
He is mildly febrile at 100.5 currently. (Tmax). Awake and alert. Head is normocephalic and atraumatic. Right neck incision intact. There was some small blood accumulated underneath the surgical glue placed overlying the incision. Therefore I
remove this glue. I cleaned the incision site. Used alcohol as well as a Betadine swab as well to sterilize the area and then placed a clean gauze dressing with Tegaderm overlying. Abdomen is soft, nondistended, nontender. Incision is clean dry
and intact. Groins are flat bilaterally. Right groin incisional VAC removed. Incision is clean dry and intact in the groin. I cannot express or see any current drainage. Therefore dressing replaced with gauze and Tegaderm. Left groin incision
clean dry and intact. Palpable femoral pulses bilaterally. Feet are both warm.
White blood cell count slightly up to 17 today. Hemoglobin 8.5.
[2024-01-09] MEDS: APRESOLINE 5 MG IV (12:13)
[2024-01-09] MEDS: VANCOCIN 300 MG IV (12:14)
[2024-01-09] MEDS: VANCOCIN 300 ML IV (12:14)
[2024-01-09 15:10] VITALS: BP 160/82
--- NOTE | 2024-01-09 15:23 | PTCARENOTE ---
Messaged Dr. Velázquez about dressings that were placed earlier on right neck and right groin. Right neck dressing is scant pink not saturated. Right groin dressing is dry and intact as of 1500 today 01/09/24
[2024-01-09] MEDS: LIPITOR 20 MG PO (17:01)
[2024-01-09] MEDS: NORVASC 5 MG PO (17:01)
[2024-01-09] MEDS: LOVENOX 40 MG SC (17:01)
[2024-01-09] MEDS: DIOVAN 160 MG PO (17:01)
[2024-01-09 19:24] VITALS: BP 161/86
[2024-01-09] MEDS: TESSALON PERLES 100 MG PO (20:50)
--- NOTE | 2024-01-09 21:42 | W.PN.UPDATE ---
Update Note
Progress Note Update
Nursing notes patient with sore throat but has also visualized 4 white ulcers in back of his throat. Rapid strep negative. He is + for MRSA and is being treated with Vancomycin. Will add nystatin swish and swallow to cover for thrush.
[2024-01-09] MEDS: MYCOSTATIN ORAL SUSPENSION 5 ML PO (22:55)
[2024-01-09 23:16] VITALS: BP 158/78
[2024-01-10] VITALS (8 sets, daily range): BP systolic 127–168; BP diastolic 74–89; PULSE 98–104; O2SAT 95; BMI 22.9
[2024-01-10] MEDS: VANCOCIN 150 IV ×2 (05:58→17:40)
[2024-01-10] MEDS: BACTROBAN 2% OINTMENT 1 APPLIC NASAL (06:35)
[2024-01-10] MEDS: PERIDEX 0.12% ORAL RINSE 15 ML PO (06:35)
[2024-01-10 06:48] LABS: Hematocrit 24.8 % (39.0-52.0); Hemoglobin 8.6 g/dL (13.0-18.0); Mean Corp Hgb Conc. 34.7 g/dL (33.0-37.0); Mean Corpuscular Hgb 31.3 pg (27.0-31.0); Mean Corpuscular Volume 90.2 fL (80.0-94.0); Mean Platelet Volume 9.2 fL (7.4-10.4); Platelet Count 845 10^3/uL (130-400); Red Blood Cell Count 2.75 10^6/uL (4.70-6.10); Red Cell Dist. Width 14.6 % (11.5-14.5); White Blood Cell Count 18.5 10^3/uL (4.8-10.8)
[2024-01-10 06:53] LABS: APTT 27.6 Sec (23.4-35.0); INR 1.12; PT 14.2 Sec (11.4-14.6)
[2024-01-10 07:14] LABS: Blood Urea Nitrogen 11 mg/dl (9-20); Calcium 9.2 mg/dl (8.4-10.2); Carbon Dioxide 21 mmol/L (22-30); Chloride 107 mmol/L (98-107); Estimated Creatinine Clearance 94 ml/min; Glucose 113 mg/dl (70-99); Potassium 3.8 mmol/L (3.5-5.1); Sodium 140 mmol/L (135-145); eGFR > 60.00
--- NOTE | 2024-01-10 08:22 | W.PN.VS ---
Addendum entered and electronically signed by Mic Velázquez MD 01/10/24 10:08:
Seen and examined with MERRY Chong. Agree with findings as noted below. Patient is without any new complaints. Right neck dressing removed. Dressing with slight drainage serosanguineous/serous. Remove dressing. Incision is clean. Intact. Mild
hematoma stable. Slight old hematoma drainage from middle of incision. No erythema. No pulsatile mass. Jay dressing reapplied. Abdomen soft, nondistended, nontender. Incision clean dry and intact. Groins flat bilaterally. Right groin
dressing was completely dry. Unable to express any serous drainage anymore. Even with compression around the incision site. It appears fully intact. No surrounding erythema. No fullness or fluctuance deep. No seroma by exam. New dressing
applied. Left groin flat, no hematoma. Palpable femoral pulses bilaterally. Feet are warm. Neurologically stable. Plan/as discussed and noted below. Rising white count slightly. Started on vancomycin yesterday given MRSA swab positive. No
signs of infection at any of the incision sites. Slight drainage from right neck incision mostly old hematoma. (Very minimal drainage). Will continue to monitor. If any increasing drainage or signs of infection in the neck we will plan washout.
Will hold off on washout/sartorius flap today given complete closure and no further drainage of serous fluid and no seroma by exam (and patient has been walking around and still no drainage). Will also ask hematology to evaluate given
thrombocytosis. Unclear mechanism. Continue aspirin.
Original Note:
Today's Communication / Plan
-
Seen and assessed with Dr. Velázquez
Assessment/Plan
-
POD#11 ABF, POD#5 R CEA
� OR canceled for today, right groin site dry no drainage can be appreciated this morning, will continue to monitor
-Jay dressing applied to right neck incision for scant drainage
-Resume diet
-Out of bed/ambulation
-Hematology consultation for elevating platelet count
Subjective Data
-
Date of Service: January 10, 2024
Patient seen at bedside this a.m. with Dr. Velázquez. Patient offers no complaints at this time. No events overnight. Right groin dressing completely dry. Right neck dressing with scant drainage
Objective Data
-
Vital Signs
Temp Pulse Resp BP Pulse Ox
99.5 F 98 16 167/89 96
01/10/24 07:15 01/10/24 07:15 01/10/24 07:15 01/10/24 07:15 01/10/24 07:15
Intake and Output
01/09/24 01/10/24 01/11/24
06:59 06:59 06:59
Intake Total 1080 / 1080 720 / 720
Balance 1080 / 1080 720 / 720
Intake:
Oral fluids 1080 / 1080 720 / 720
Other:
Number of approximated MODERATE 2 3
amounts of urine
Number of approximated LARGE 2
amounts of urine
Number of unmeasured liquid
stools
Rectum 1 1
Lab Results
01/10/24 05:57
01/10/24 05:57
Calcium 9.2 mg/dl (8.4-10.2) 01/10/24 05:57
Phosphorus 3.3 mg/dl (2.5-4.5) 01/05/24 04:20
Magnesium 1.9 mg/dl (1.6-2.3) 01/08/24 05:00
Physical Exam
-
mildly febrile at 100.6 Tmax
AAOx3
Right neck incision intact, scant serous drainage, gauze removed
Abdomen is soft, nondistended, nontender, Incision is clean dry and intact
Groins are flat bilaterally
Right groin gauze removed. Incision is clean dry and intact in the groin. I cannot express or see any current drainage. Therefore dressing replaced with gauze and Tegaderm.
Left groin incision clean dry and intact. Palpable femoral pulses bilaterally. Feet are both warm.
WBC 18.5
Hemoglobin 8.6
[2024-01-10] MEDS: MYCOSTATIN ORAL SUSPENSION 5 ML PO ×4 (08:49→20:41)
[2024-01-10] MEDS: FOLVITE 1 MG PO (08:51)
[2024-01-10] MEDS: PROTONIX 20 MG PO (08:51)
[2024-01-10] MEDS: PLAVIX 75 MG PO (08:51)
[2024-01-10] MEDS: NICODERM TRANSDERMAL 14 MG TRANSDERM (08:51)
[2024-01-10] MEDS: VITAMIN B1 100 MG PO ×2 (08:51→20:40)
[2024-01-10] MEDS: LOW STRENGTH ASPIRIN 81 MG PO (08:51)
[2024-01-10] MEDS: MUCINEX 600 MG PO ×2 (08:51→20:40)
--- NOTE | 2024-01-10 09:03 | PHA.VAN.FU ---
Vancomycin Assessment / Plan
- Assessment
Renal Function: Stable
WBC's are: Trending Up
In the past 24 hrs, patient has been: Febrile
- Dosing Plan
Continue: 750MG Q12H
- Monitoring Plan
No level(s) ordered at this time: Consider levels after 01/10 1800 dose
- Follow Up
Pharmacy will continue to follow.
Vancomycin Follow UP
- -
Patient Age: 63
Patient Sex: Male
Vancomycin Day #: 2
Indication: Other
Requesting Provider: Eber
Height / Weight:
Height 5 ft 5 in
Actual Weight 62.414 kg
IBW in k.5
Adjusted BW in k.1
- Vital Signs / Lab Results
Temp Pulse Resp BP Pulse Ox
99.5 F 98 16 167/89 96
01/10/24 07:15 01/10/24 07:15 01/10/24 07:15 01/10/24 07:15 01/10/24 07:15
Lab Results - Hematology
01/08/24 01/09/24 01/10/24
05:00 08:56 05:57
WBC 16.9 H 17.0 H 18.5 H
Lab Results - Chemistry
01/08/24 01/09/24 01/10/24
05:00 08:56 05:57
BUN 14 15 11
Creatinine 0.7 0.8 0.7
Estimated Creat Clear 94 82 94
Microbiology Results
01/09/24 20:53 Streptococcus Rapid Screen - Final
Throat/Pharynx Rapid Strep Screen (Group A) Negative
[2024-01-10 10:58] LABS: Reticulocyte Count 3.5 % (0.4-2.8)
[2024-01-10 11:31] LABS: Erythrocyte Sed Rate 98 mm/hour (0-20)
--- NOTE | 2024-01-10 12:45 | PTCARENOTE ---
Small amount of serosanguineous drainage noted on R neck dressing. Picture sent via TT to vascular PHYSICIAN/OPHTHALMOLOGIST, no new orders at this time. Patient states no concerns at this time.
--- NOTE | 2024-01-10 13:40 | CON.ONC ---
Impression
Impression
Peripheral arterial disease s/p aortofemoral bypass
Carotid stenosis complicated by stroke, now s/p R CEA
Platelet elevation
EtOH, last 12/28
Testicular torsion/ischemia
Low-grade temp
Plan
Plan
Doubt underlying myeloproliferative disorder with CBC normal prior to and throughout much of admission. Also, spleen size normal mitigates against MPD.
Differential for secondary thrombocytosis includes iron deficiency, inflammatory state, post-splenectomy, hemolysis. Rebound thrombocytosis has been described in some patients after withdrawal of alcohol.
Ferritin normal, will send iron/TIBC/sat
Testicular torsion with low grade temp (Tm 1006) represents an inflammatory state, WBC also progressively increasing.
Timing would be right for rebound thrombocytopenia with last alcohol approx 12/28 and platelet increase beginning 01/06.
Pt does not need to remain in the hospital for elevated platelet count.
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
Thank you for consult, will follow along with you.
Patient History
History of Present Illness
63 year old male with occlusive peripheral artery disease in the infrarenal abdominal aorta and iliac arteries initially admitted for elective open aortobifemoral bypass and right femoral endarterectomy on 12/30/23. Post-operative course was
complicated by mental status change followed by left sided weakness and neglect. MRI revealed right sided MCA strokes. CT angiogram noted right ICA stenosis. He went on to right carotid endarterectomy on 01/05/24. Post-op course complicated by
testicular torsion ischemia. Platelets were normal through 01/05 but have progressively increased since 01/06 to 845 as of this morning. Of note, patient admits to drinking 6 beers per day and required Ativan and Precedex 12/30-12/31 for alcohol
withdrawal symptoms. Currently without nosebleeds, gumbleeds, or other platelet type bleeding. He has no family history of cancer or blood disorders. CT Abd 10/26/23 showed normal spleen size.
Past-Medical/Surgical History
Past Medical History:
Peripheral arterial disease, hypertension
Spinal cord 'central cord syndrome' after a fall more than 5 years ago with no spinal surgery needed and no sequelae
Surgical History:
Aortobifemoral bypass and right femoral endarterectomy 12/29, R carotid endartarectomy 01/06
Family History:
Denies family history of cancer or blood disorders
Social History:
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
Allergies:
No known drug allergies
Patient Medication
�Medication �Instructions �Recorded �Confirmed �Last Taken �Type
aspirin 81 mg capsule 81 mg PO QPM Blood Clot 12/22/23 12/30/23 12/29/23 16:00 History
Prevention/Tx
atorvastatin 20 mg tablet 20 mg PO QPM High Cholesterol 12/22/23 12/30/23 12/29/23 16:00 History
valsartan 160 mg tablet 160 mg PO QPM Blood Pressure 12/22/23 12/30/23 12/29/23 16:00 History
amlodipine 5 mg tablet 5 mg PO QPM Blood Pressure 12/30/23 12/30/23 12/29/23 16:00 History
pregabalin 150 mg capsule (Lyrica) 150 mg PO DAILYPRN PRN pain 12/30/23 12/30/23 12/29/23 14:00 History
sildenafil 100 mg tablet (Viagra) 100 mg PO DAILY PRN as needed 12/30/23 12/30/23 12/29/23 17:00 History
Active Medications
Generic Name Dose Route Start Last Admin
Trade Name Freq PRN Reason Stop Dose Admin
Acetaminophen 650 mg 01/06/24 11:25 01/09/24 20:50
Acetaminophen 325 Mg Tablet PO 02/03/24 11:24 650 mg
Q4HPRN PRN Administration
MILD PAIN/TEMP
Amlodipine Besylate 5 mg 01/04/24 18:00 01/09/24 17:01
Amlodipine 5 Mg Tablet PO 02/01/24 17:59 5 mg
QPM AMITA Administration
Aspirin 81 mg 01/04/24 08:00 01/10/24 08:51
Aspirin 81 Mg Chewable Tablet PO 02/01/24 07:59 81 mg
DAILY AMITA Administration
Atorvastatin Calcium 20 mg 01/03/24 20:00 01/09/24 17:01
Atorvastatin (Lipitor) 20 Mg Tablet PO 01/31/24 19:59 20 mg
QPM AMITA Administration
Bisacodyl 10 mg 12/30/23 13:43 01/04/24 09:50
Bisacodyl 10 Mg Rectal Suppository RECTAL 01/27/24 13:42 10 mg
DAILYPRN PRN Administration
constipation
Clopidogrel Bisulfate 75 mg 01/05/24 17:00 01/10/24 08:51
Clopidogrel 75 Mg Tablet PO 01/24/24 16:59 75 mg
DAILY AMITA Administration
Enoxaparin Sodium 40 mg 01/03/24 18:00 01/09/24 17:01
Enoxaparin Sodium 40 Mg/0.4 Ml Syringe SC 01/31/24 17:59 40 mg
QPM AMITA Administration
Folic Acid 1 mg 01/04/24 08:00 01/10/24 08:51
Folic Acid 1 Mg Tablet PO 02/01/24 07:59 1 mg
DAILY AMITA Administration
Guaifenesin 600 mg 01/03/24 20:00 01/10/24 08:51
Guaifenesin 600 Mg Extended Release Tablet PO 01/31/24 19:59 600 mg
Q12 AMITA Administration
Hydralazine HCl 5 mg 01/04/24 10:08 01/09/24 12:13
Hydralazine 20 Mg/Ml Vial IV 02/01/24 10:07 5 mg
Q6HPRN PRN Administration
SBP >180
Hydromorphone HCl 0.5 mg 01/03/24 21:32 01/05/24 08:21
Hydromorphone 0.5 Mg/0.5 Ml Syringe IV 01/17/24 21:31 0.5 mg
Q3HPRN PRN Administration
moderate pain
Vancomycin HCl 750 mg in 150 mls @ 150 mls/hr 01/10/24 06:00 01/10/24 05:58
Vancocin IV 150 mls
Q12H AMITA Administration
Protocol
Naloxone HCl 0.04 mg 12/30/23 14:55
Naloxone (0.4 Mg/Ml) 1 Ml Injection IV 01/27/24 14:54
Q2MPRN PRN
RR </= 10/min / Pasero scale=4
Nicotine 14 mg 12/31/23 11:00 01/10/24 08:51
Nicotine 14 Mg Patch TRANSDERM 01/28/24 10:59 14 mg
DAILY AMITA Administration
Nystatin 5 ml 01/09/24 22:00 01/10/24 12:24
Nystatin Oral Suspension 500,000 Units/5 Ml PO 02/06/24 21:59 5 ml
QID AMITA Administration
Pantoprazole Sodium 20 mg 01/08/24 11:00 01/10/24 08:51
Pantoprazole 20 Mg Delayed Release Tablet PO 02/05/24 10:59 20 mg
DAILY AMITA Administration
Patch Removal 0 patch 12/31/23 22:00 01/09/24 20:50
Remove Nicotine Patch REMOVE 01/28/24 21:59 1 patch
HS AMITA Administration
Phenol 0 spray 01/08/24 06:24 01/08/24 09:20
Chloraseptic (1.4% Phenol) Throat [place] PO 02/05/24 06:23 1 spray
Q2HPRN PRN Administration
sore throat
Prochlorperazine Edisylate 5 mg 01/05/24 19:17 01/06/24 23:12
Prochlorperazine 10 Mg/2 Ml Vial IV 02/02/24 19:16 5 mg
Q6HPRN PRN Administration
nausea/vomiting/headache
Sodium Chloride 0 flush 12/30/23 08:00
Sodium Chloride 0.9% (Flush) Syringe IV 01/27/24 07:59
PER PROTOCOL AMITA
Sodium Chloride 0.9 ml 12/30/23 14:55 01/02/24 13:39
Sodium Chloride 0.9% (Preservative Free) 10 Ml Vial IV 01/27/24 14:54 0.9 ml
Q2MPRN PRN Administration
naloxone dilution
Thiamine HCl 100 mg 01/02/24 20:00 01/10/24 08:51
Thiamine 100 Mg Tablet PO 01/30/24 19:59 100 mg
BID AMITA Administration
Valsartan 160 mg 01/04/24 18:00 01/09/24 17:01
Valsartan 80 Mg Tablet PO 02/01/24 17:59 160 mg
QPM AMITA Administration
Review of Systems
-
History Source: Patient and Records
Constitutional: Reports Fever (low-grade); Denies Weight Gain, Weight Loss or Fatigue
EENT: Reports No Symptoms
Respiratory: Reports No Symptoms
Cardiac: Reports No Symptoms
GI: Reports No Symptoms
Breast: Reports No Symptoms
: Reports Other (groin pain)
Musculoskeletal: Reports No Symptoms
Skin: Reports No Symptoms
Neuro: Reports No Symptoms
Endocrine: Reports No Symptoms
Hematologic/Lymphatic: Reports No Symptoms
Allergy / Immunology: Reports No Symptoms
Psych: Reports No Symptoms
Physical Exam
-
General: Well Developed, Well Nourished and No Apparent Distress
HEENT: Moist Mucous Membranes; Negative Jaundice
Cardiology: Normal Sinus Rhythm, S1 and S2
Pulmonary: Clear; Negative Wheezes
GI: Soft; Negative Distended or Tense
Genito-Urinary: Costovertebral Angle Tenderness, No Costovertebral Tenderness and Bloody Urine
Musculoskeletal: No Clubbing, No Cyanosis and No Edema
Extremities: No C/C/E
Neurology: Non Focal and No Lateralizing Symptoms
Skin: Warm
Hematologic / Lymphatic: No Lymphadenopathy
Psych: Calm and Intact Judgement/Insight (pt states he knows he needs to cut back on alcohol use)
Labs
Lab Results
WBC 18.5 10^3/uL (4.8-10.8) H 01/10/24 05:57
RBC 2.75 10^6/uL (4.70-6.10) L 01/10/24 05:57
Hgb 8.6 g/dL (13.0-18.0) L 01/10/24 05:57
Hct 24.8 % (39.0-52.0) L 01/10/24 05:57
MCV 90.2 fL (80.0-94.0) 01/10/24 05:57
MCH 31.3 pg (27.0-31.0) H 01/10/24 05:57
MCHC 34.7 g/dL (33.0-37.0) 01/10/24 05:57
RDW 14.6 % (11.5-14.5) H 01/10/24 05:57
Plt Count 845 10^3/uL (130-400) H D 01/10/24 05:57
MPV 9.2 fL (7.4-10.4) 01/10/24 05:57
Abs Immat Gran (auto) 0.0 10^3/uL (0-0.05) 12/27/23 09:27
Absolute Neuts (auto) 5.8 10^3/uL (1.4-6.5) 12/27/23 09:27
Absolute Lymphs (auto) 2.3 10^3/uL (1.2-3.4) 12/27/23 09:27
Absolute Monos (auto) 0.5 10^3/uL (0.1-0.6) 12/27/23 09:27
Absolute Eos (auto) 0.3 10^3/uL (0-0.7) 12/27/23 09:
Absolute Basos (auto) 0.1 10^3/uL (0-0.2) 12/27/23 09:
Immature Gran % 0.3 % (0-0.5) 12/27/23 09:
Neutrophils % 65.2 % (42.2-75.2) 12/27/23:
Lymphocytes % 25.4 % (20.5-51.1) 12/27/23:
Monocytes % 5.4 % (1.7-9.3) 12/27/23:
Eosinophils % 3.1 % (0-6) 12/27/23:
Basophils % 0.6 % (0-2) 12/27/23 09:
Creatinine 0.7 mg/dL (0.7-1.3) 01/10/24 05:57
Vital Signs
Vital Signs
Temp Pulse Resp BP Pulse Ox
99.5 F 96 16 127/78 95
01/10/24 11:56 01/10/24 11:56 01/10/24 11:56 01/10/24 11:56 01/10/24 11:56
--- NOTE | 2024-01-10 17:00 | CM ---
Previous PT recommendation was acute rehab. Referral previously forwarded. Today PT recommendation has changed to HH. OT recommendation remains Acute rehab. Patient is not medically cleared for discharge. Will await further therapy evaluations to
determine Acute vs HH.
[2024-01-10] MEDS: NORVASC 5 MG PO (17:11)
[2024-01-10] MEDS: LIPITOR 20 MG PO (17:11)
[2024-01-10] MEDS: DIOVAN 160 MG PO (17:12)
[2024-01-10] MEDS: LOVENOX 40 MG SC (17:40)
[2024-01-10] MEDS: TYLENOL 650 MG PO (20:39)
[2024-01-11] VITALS (7 sets, daily range): BP systolic 135–177; BP diastolic 78–87; PULSE 97; O2SAT 98; BMI 22.8
[2024-01-11] MEDS: VANCOCIN 150 IV ×2 (06:46→17:09)
[2024-01-11 07:27] LABS: Hematocrit 23.7 % (39.0-52.0); Hemoglobin 8.2 g/dL (13.0-18.0); Mean Corp Hgb Conc. 34.6 g/dL (33.0-37.0); Mean Corpuscular Hgb 30.7 pg (27.0-31.0); Mean Corpuscular Volume 88.8 fL (80.0-94.0); Mean Platelet Volume 9.3 fL (7.4-10.4); Platelet Count 890 10^3/uL (130-400); Red Blood Cell Count 2.67 10^6/uL (4.70-6.10); Red Cell Dist. Width 14.1 % (11.5-14.5); White Blood Cell Count 17.6 10^3/uL (4.8-10.8)
[2024-01-11 08:03] LABS: Blood Urea Nitrogen 10 mg/dl (9-20); Carbon Dioxide 23 mmol/L (22-30); Chloride 103 mmol/L (98-107); Estimated Creatinine Clearance 94 ml/min; Glucose 106 mg/dl (70-99); Potassium 3.8 mmol/L (3.5-5.1); Sodium 138 mmol/L (135-145); eGFR > 60.00
--- NOTE | 2024-01-11 08:23 | PHA.VAN.FU ---
Vancomycin Assessment / Plan
- Assessment
Renal Function: Stable
WBC's are: Trending Down
In the past 24 hrs, patient has been: Febrile
- Dosing Plan
Continue: Vanc 750mg Q12H
- Monitoring Plan
No level(s) ordered at this time: consider levels in next few days
- Follow Up
Pharmacy will continue to follow.
Vancomycin Follow UP
- -
Patient Age: 63
Patient Sex: Male
Vancomycin Day #: 3
Indication: Other
Requesting Provider: Dr. Velázquez
Pertinent Antimicrobial Allergies:
NKDA
Height / Weight:
Height 5 ft 5 in
Actual Weight 62.097 kg
IBW in k.5
Adjusted BW in k.1
Pertinent Past Medical History: PAD
- Vital Signs / Lab Results
Temp Pulse Resp BP Pulse Ox
99.2 F 91 16 177/87 97
01/11/24 07:15 01/11/24 07:15 01/11/24 07:15 01/11/24 07:15 01/11/24 07:15
Lab Results - Hematology
01/09/24 01/10/24 01/11/24
08:56 05:57 06:30
WBC 17.0 H 18.5 H 17.6 H
Lab Results - Chemistry
01/09/24 01/10/24 01/10/24
08:56 05:57 10:37
BUN 15 11
Creatinine 0.8 0.7
Estimated Creat Clear 82 94
Albumin Cancelled Cancelled
01/11/24
06:30
BUN 10
Creatinine 0.7
Estimated Creat Clear 94
Albumin
Microbiology Results
01/09/24 20:53 Streptococcus Screen (OSWALDO) - Preliminary
Throat/Pharynx Culture in Progress
Streptococcus Rapid Screen - Final
Rapid Strep Screen (Group A) Negative
--- NOTE | 2024-01-11 08:25 | WOUNDNOTE ---
SANA RN NOTE: Reviewed vascular note, wound vac removed from R groin and replaced with gauze and Tegaderm. Will update [employer] with stop date of wound vac. Vascular continues to follow.
--- NOTE | 2024-01-11 09:08 | W.PN.VS ---
Addendum entered and electronically signed by Arslan Lee III, MD 01/11/24 11:53:
This patient was seen and examined with WERNER Wise. I agree with the history and physical exam as well as the assessment and plan.
Signed:
Arslan Lee III, MD
[facility] Vascular Surgery
[phone] ([id number])
Original Note:
Today's Communication / Plan
-
Patient seen and examined at bedside with Dr. Arslan Lee III, below plan reviewed with attending
Assessment/Plan
-
POD#12 ABF, POD#6 R CEA
�Continue PT/OT
-Patient requesting a shower, will allow shower and following will reapply right neck and groin dressings
-Case management following for disposition
-Appreciate hematology consultation and recommendation
-Will obtain urinalysis and chest x-ray given continued fever, no obvious signs of infection at any incision
-Continue antibiotics
Subjective Data
-
Date of Service: January 11, 2024
Patient seen and examined at bedside, reports continued improvement regarding throat pain and left upper extremity weakness. Reports no weakness in left lower extremity. Denies pain, nausea, and vomiting. Does endorse continued flatulence.
Requesting shower.
Objective Data
-
Vital Signs
Temp Pulse Resp BP Pulse Ox
99.2 F 91 16 177/87 97
01/11/24 07:15 01/11/24 07:15 01/11/24 07:15 01/11/24 07:15 01/11/24 07:15
Intake and Output
01/10/24 01/11/24 01/12/24
06:59 06:59 06:59
Intake Total 720 / 720 1380 / 1380
Balance 720 / 720 1380 / 1380
Intake:
Oral fluids 720 / 720 1380 / 1380
Other:
Number of approximated SMALL 1
amounts of urine
Number of approximated MODERATE 3 3
amounts of urine
Number of unmeasured liquid
stools
Rectum 1
Lab Results
01/11/24 06:30
01/11/24 06:30
Calcium 9.0 mg/dl (8.4-10.2) 01/11/24 06:30
Phosphorus 3.3 mg/dl (2.5-4.5) 01/05/24 04:20
Magnesium 1.9 mg/dl (1.6-2.3) 01/08/24 05:00
Total Bilirubin Cancelled 01/10/24 10:37
Direct Bilirubin Cancelled 01/10/24 10:37
AST Cancelled 01/10/24 10:37
ALT Cancelled 01/10/24 10:37
Alkaline Phosphatase Cancelled 01/10/24 10:37
Total Protein Cancelled 01/10/24 10:37
Albumin Cancelled 01/10/24 10:37
Physical Exam
-
febrile, Tmax 101.5
AAOx3
Right neck incision clean and intact, currently without drainage, and no evidence of erythema. Dressing changed, incision line remains approximated, can palpate scant hematoma, soft, all surrounding areas soft. Jay dressing removed and replaced
with gauze and Tegaderm.
Abdomen is soft, nondistended, nontender, Incision is clean dry and intact
Groins are flat bilaterally
Right groin gauze removed, gauze remained clean dry and intact prior to removal. Incision is clean dry and intact in the groin, cannot express or see any current drainage. Dressing replaced.
Left groin incision clean dry and intact. Palpable femoral pulses bilaterally. Feet are both warm.
[2024-01-11] MEDS: MYCOSTATIN ORAL SUSPENSION 5 ML PO ×4 (09:37→20:51)
[2024-01-11] MEDS: PROTONIX 20 MG PO (09:38)
[2024-01-11] MEDS: LOW STRENGTH ASPIRIN 81 MG PO (09:38)
[2024-01-11] MEDS: FOLVITE 1 MG PO (09:38)
[2024-01-11] MEDS: NICODERM TRANSDERMAL 14 MG TRANSDERM (09:38)
[2024-01-11] MEDS: PLAVIX 75 MG PO (09:38)
[2024-01-11] MEDS: MUCINEX 600 MG PO ×2 (09:38→20:50)
[2024-01-11] MEDS: VITAMIN B1 100 MG PO ×2 (09:38→20:50)
[2024-01-11] MEDS: KLOR-CON 20 MEQ PO (10:51)
[2024-01-11 12:00] LABS: Urine Albumin Trace (Neg - Trace); Urine Bilirubin 1+ (Negative); Urine Character Clear (Clear); Urine Color Yellow; Urine Glucose Trace (Negative); Urine Ketone Trace (Negative); Urine Leukocyte Negative (Negative); Urine Nitrite Negative (Negative); Urine Occult Blood 2+ (Negative); Urine Specific Gravity 1.025 (<1.030); Urine Urobilinogen Negative (Neg - 1+)
[2024-01-11 12:17] LABS: Urine Mucus Many
[2024-01-11 12:19] LABS: Urine Amorphous Seen
[2024-01-11 12:21] LABS: Urine Bacteria Few (Negative); Urine White Cell 0-2 /HPF (0-5)
--- NOTE | 2024-01-11 14:00 | WOUNDNOTE ---
SANA RN NOTE ADDENDUM: Spoke to Angelica Gomez from vascular at patient's bedside, wound vac machine left in rm. Per Angelica, leave machine in rm incase they need to re apply vac dressing. Made aware to notify wound care if wound vac resumed.
[2024-01-11 14:15] LABS: Haptoglobin 541 mg/dL (30-200)
--- NOTE | 2024-01-11 15:20 | PTOTSP ---
Speech Therapy Language/Cognitive Assessment
Patient presents with at least mild cognitive communication deficits in the areas of attention, memory and abstract thinking following MOCA administration (23/30 score). Deficits warrant more comprehensive assessment in next level of care.
[2024-01-11] MEDS: TYLENOL 650 MG PO (16:20)
[2024-01-11] MEDS: DIOVAN 160 MG PO (17:08)
[2024-01-11] MEDS: LIPITOR 20 MG PO (17:08)
[2024-01-11] MEDS: NORVASC 5 MG PO (17:08)
[2024-01-11] MEDS: LOVENOX 40 MG SC (17:08)
--- NOTE | 2024-01-11 17:33 | W.PN.UPDATE ---
Update Note
Progress Note Update
Late entry, today at reevaluation roughly 10:30 AM noted increased pulsatility around right carotid hematoma, no specific area of pulsatile mass, all surrounding area remained soft and nontender. However, given continued size of hematoma, febrile,
and elevated leukocytosis opted for CT angio of head and neck to rule out patch disturbance such as pseudoaneurysm. Final read from CT angio demonstrated no active extravasation. However, will make n.p.o. after midnight in case reevaluation
tomorrow morning it is determined he requires washout of right neck surgical site. Plan reviewed with attending Dr. Mic Velázquez.
[2024-01-12] VITALS (25 sets, daily range): BP systolic 128–167; BP diastolic 70–91; BMI 22.7
[2024-01-12] MEDS: VANCOCIN 150 IV ×2 (06:33→17:47)
[2024-01-12 06:40] LABS: Hematocrit 22.4 % (39.0-52.0); Hemoglobin 7.5 g/dL (13.0-18.0); Mean Corp Hgb Conc. 33.5 g/dL (33.0-37.0); Mean Corpuscular Hgb 30.6 pg (27.0-31.0); Mean Corpuscular Volume 91.4 fL (80.0-94.0); Mean Platelet Volume 9.1 fL (7.4-10.4); Platelet Count 936 10^3/uL (130-400); Red Blood Cell Count 2.45 10^6/uL (4.70-6.10); White Blood Cell Count 16.9 10^3/uL (4.8-10.8)
[2024-01-12 06:51] LABS: Blood Urea Nitrogen 9 mg/dl (9-20); Calcium 8.8 mg/dl (8.4-10.2); Carbon Dioxide 22 mmol/L (22-30); Chloride 105 mmol/L (98-107); Estimated Creatinine Clearance 94 ml/min; Glucose 102 mg/dl (70-99); Sodium 136 mmol/L (135-145); eGFR > 60.00
--- NOTE | 2024-01-12 08:12 | W.PN.UPDATE ---
Update Note
Progress Note Update
Seen and evaluated this morning. Patient himself is without specific complaints. Tmax was 100.8. Right neck dressing removed. The dressing was somewhat saturated with serous/serosanguineous drainage. When I remove the dressing and wash the
incision from the superior aspect there is a little bit of serous/serosanguineous drainage. Continues to drip out. The neck is soft. No major pulsatility. Abdomen is soft, nondistended, nontender. Groins are flat bilaterally. Both incisions in
the groins are clean dry and intact. No further drainage from right groin incision. Left open to air now. 2+ palpable femoral pulses bilaterally. Feet are both pink and warm and well-perfused.
White blood cell count 16.9. Platelets 900 range. Hemoglobin 7.5.
Plan/given low-grade fevers, persistent white blood cell count, drainage from right neck, and CT scan findings of some hematoma in the subcutaneous space and in the surgical bed, recommend washout for infection prevention. I discussed this with the
patient and his . Patient was MRSA swab positive. Has been maintained on vancomycin. Would favor an aggressive approach to prevent any MRSA related infection. Therefore recommending washout. Discussed risks including but not limited to
bleeding and infection. Discussed also potential for patch involvement requiring further revascularization. Patient and understand all. Wish to proceed.
[2024-01-12 08:27] LABS: COVID-19 Antigen Negative (Negative)
[2024-01-12] MEDS: VITAMIN B1 100 MG PO ×2 (08:42→20:01)
[2024-01-12] MEDS: MYCOSTATIN ORAL SUSPENSION 5 ML PO ×4 (08:42→22:48)
[2024-01-12] MEDS: MUCINEX 600 MG PO ×2 (08:42→20:00)
[2024-01-12] MEDS: PLAVIX 75 MG PO (08:42)
[2024-01-12] MEDS: PROTONIX 20 MG PO (08:42)
[2024-01-12] MEDS: LOW STRENGTH ASPIRIN 81 MG PO (08:42)
[2024-01-12] MEDS: FOLVITE 1 MG PO (08:43)
[2024-01-12] MEDS: NICODERM TRANSDERMAL 14 MG TRANSDERM (08:43)
[2024-01-12] MEDS: BACTROBAN 2% OINTMENT 1 APPLIC NASAL (09:08)
[2024-01-12] MEDS: PERIDEX 0.12% ORAL RINSE 15 ML PO (09:11)
[2024-01-12] MEDS: NSS 1000 IV (11:50)
[2024-01-12] MEDS: DILAUDID 0.25 MG IV (11:53)
--- NOTE | 2024-01-12 12:16 | OR.RPT ---
Operative Report
Operative Report
PROCEDURE DATE: 01/12/2024
Preoperative diagnosis: Right neck hematoma status post carotid endarterectomy.
Postoperative diagnosis: Small organized hematoma/fibrinous exudate right neck.
Procedure:
1. Exploration right neck with evacuation of organized hematoma/fibrinous slough.
2. Excision of submandibular lymph node.
Surgeon: Eber
Dental Assistant Medical Assistant: Angelica Gomez NP required for all aspects of procedure including assistance with traction/countertraction and assistance with closure.
Complications: None
Anesthesia: General
Indications for procedure:
Patient with persistent right neck swelling which initially began postoperative day #2 following right carotid endarterectomy. In addition there was continued drainage from the right neck with small areas of dehiscence on the incision. Given all
these findings and low-grade fevers, patient was brought to the operating room for exploration. Risk/benefits/alternatives also discussed. Patient understood all wish to proceed.
Description of procedure:
Patient was identified brought to the operating room placed on the table in supine position. After the adequate administration of anesthesia he was prepped and draped in the standard surgical fashion. A standard preoperative timeout was undertaken
and everybody was in agreement the plan. The prior right neck incision was reopened using a 15 blade. However, I noted that just pulling at the edges of the incision it was not actually fully healed. I do not even need the blade for the entirety
incision but rather it was on its own. The deep dermal/platysma muscle layer sutures were then cut out. There was some bulging tissue here but no aubree hematoma. It look like organized clot versus fibrinous slough. This was removed
with my fingers. There is no large hematoma pocket or any active blood. There is no purulence noted. There is no serous drainage or pocket. The space down to the carotid endarterectomy/patch angioplasty site was essentially open and unhealed.
It appeared that the tissues were not adhering/healing as they normally should. However no clear-cut abnormal process was noted. There is just some fibrinous slough as is often seen in a postsurgical field. There was a moderate to large
submandibular lymph node. I could not tell if there is portions of this that were necrotic or whether it was just tissue surrounding it. The bovine pericardial patch angioplasty of the carotid was nicely intact. The edges appear to start getting
incorporated. However I could easily see the suture line. There is no bleeding at all. There is a good pulsation in the artery. I sent culture swabs of the patch and surrounding tissue. Though there was no obvious gross findings suggesting
infection. Once I had debrided out or removed manually any fibrinous slough/organized hematoma, I vigorously pulse lavage irrigated the entire cavity. Once I did this the tissues looks very clean.
I then carefully dissected the superior and medial aspects of the submandibular lymph node. The stalk/drainage from it was posterior lateral and I was able to place a right angle clamp and then excised the lymph node. I ligated and clipped the
stalk. Notes that this lymph node was in the deep subcutaneous space at the level of the depth of the sternocleidomastoid muscle. It was well superficial to the internal jugular vein. Therefore there is no nervous structures or other structures
surrounding it.
I then carefully irrigated again noting and confirming full hemostasis. I then closed in layers using 2-0 Vicryl interrupted layer to reapproximate the sternocleidomastoid muscle and cover over the patched artery. I then placed a small flat (7
Kazakh) MOISE drain overlying the sternocleidomastoid muscle and this was brought out through a separate stab incision in the skin and secured to the skin with a nylon suture. I then closed the deep dermal/platysma muscle layer using running 3-0
Vicryl suture. Finally the skin was closed with 3-0 nylon vertical mattress interrupted suture. Dressings were applied. The patient tolerated the procedure well.
--- NOTE | 2024-01-12 14:23 | WOUNDNOTE ---
SANA RN NOTE: CONNIE Gomez notified this sports writer that wound vac machine no longer needed, machine placed in soiled utility rm for pickup.
--- NOTE | 2024-01-12 15:21 | PHA.VAN.FU ---
Vancomycin Assessment / Plan
- Assessment
Renal Function: Stable
WBC's are: Stable
In the past 24 hrs, patient has been: Afebrile
- Dosing Plan
Continue: Vanc 750mg Q12H
- Monitoring Plan
Peak Level: 01/11 20:30
Trough Level: 01/12 05:30
Monitoring Comments: levels to be drawn after 6th maintenance dose
- Follow Up
Pharmacy will continue to follow.
Vancomycin Follow UP
- -
Patient Age: 63
Patient Sex: Male
Vancomycin Day #: 4
Indication: Other
Requesting Provider: Dr. Velázquez
Pertinent Antimicrobial Allergies:
NKDA
Height / Weight:
Height 5 ft 5 in
Actual Weight 62.006 kg
IBW in k.5
Adjusted BW in k.1
Pertinent Past Medical History: PAD
- Vital Signs / Lab Results
Temp Pulse Resp BP Pulse Ox
98.0 F 83 16 147/75 97
01/12/24 14:55 01/12/24 14:55 01/12/24 14:55 01/12/24 14:55 01/12/24 14:55
Lab Results - Hematology
01/10/24 01/11/24 01/12/24
05:57 06:30 05:51
WBC 18.5 H 17.6 H 16.9 H
Lab Results - Chemistry
01/10/24 01/10/24 01/11/24
05:57 10:37 06:30
BUN 11 10
Creatinine 0.7 0.7
Estimated Creat Clear 94 94
Albumin Cancelled Cancelled
01/12/24
05:52
BUN 9
Creatinine 0.7
Estimated Creat Clear 94
Albumin
Microbiology Results
01/12/24 10:30 Gram Stain - Preliminary
Surgical Wound
01/12/24 08:01 Influenza Types A & B (VIVIEN) - Final
Nasal Swab Negative for Influenza A & B, NAAT
Negative results must be combined with clinical observations
and patient history.
Nucleic Acid Amplification test (NAAT)performed on the
[employer] platform.
01/09/24 20:53 Streptococcus Screen (OSWALDO) - Final
Throat/Pharynx No Beta Hemolytic Streptococci Isolated
Streptococcus Rapid Screen - Final
Rapid Strep Screen (Group A) Negative
--- NOTE | 2024-01-12 15:29 | CM ---
01/12/24, R neck hematoma S/P carotid endarterectomy. To OR for evacuation of hematoma on this date. Discharge Plan of Care: PT recommendation for outpatient PT; OT recommendation for acute rehab. Will follow therapy evals and recs for suitable
discharge plan of care.
[2024-01-12] MEDS: DILAUDID 0.5 MG IV ×2 (17:32→21:08)
[2024-01-12] MEDS: LIPITOR 20 MG PO (17:46)
[2024-01-12] MEDS: NORVASC 5 MG PO (17:46)
[2024-01-12] MEDS: DIOVAN 160 MG PO (17:46)
[2024-01-12] MEDS: LOVENOX 40 MG SC (17:46)
[2024-01-12] MEDS: BENADRYL 25 MG PO (20:00)
[2024-01-12 21:18] LABS: Vancomycin Peak 14.9 ug/ml (18-26)
[2024-01-13 03:28] VITALS: BP 144/75
[2024-01-13 06:44] LABS: Hematocrit 24.6 % (39.0-52.0); Hemoglobin 8.4 g/dL (13.0-18.0); Mean Corp Hgb Conc. 34.1 g/dL (33.0-37.0); Mean Corpuscular Hgb 30.1 pg (27.0-31.0); Mean Corpuscular Volume 88.2 fL (80.0-94.0); Platelet Count 1030 10^3/uL (130-400); Red Blood Cell Count 2.79 10^6/uL (4.70-6.10); Red Cell Dist. Width 14.9 % (11.5-14.5); White Blood Cell Count 14.1 10^3/uL (4.8-10.8)
[2024-01-13 06:48] LABS: INR 1.07
[2024-01-13 06:49] LABS: APTT 34.6 Sec (23.4-35.0)
[2024-01-13 07:01] LABS: Blood Urea Nitrogen 13 mg/dl (9-20); Calcium 8.7 mg/dl (8.4-10.2); Carbon Dioxide 25 mmol/L (22-30); Chloride 102 mmol/L (98-107); Estimated Creatinine Clearance 82 ml/min; Glucose 93 mg/dl (70-99); Potassium 4.2 mmol/L (3.5-5.1); Sodium 136 mmol/L (135-145); eGFR > 60.00
[2024-01-13 07:10] LABS: Vancomycin Trough 8.5 ug/ml (5-20)
[2024-01-13 07:15] VITALS: BP 163/80
--- NOTE | 2024-01-13 07:43 | W.PN.VS ---
Addendum entered and electronically signed by Mic Velázquez MD 01/13/24 17:31:
Seen and examined with MERRY Gomez earlier this a.m. This is a late entry. Agree with findings as noted below. Patient without complaints. Right neck incision is clean dry intact. Soft. No hematoma. MOISE serosanguineous. Minimal drainage is noted.
Neurologically stable. Abdomen and groin incisions clean dry and intact, no fullness or drainage. Feet are warm. Plan/as discussed and noted below. Follow cultures from the OR.
Original Note:
Today's Communication / Plan
-
Patient seen and examined at bedside with Dr. Mic Velázquez, below plan reviewed with attending
Assessment/Plan
-
POD#13 ABF, POD#7 R CEA, POD# 1 Right neck washout
�Continue PT/OT
-Case management following for disposition, can possibly be discharged tomorrow
-Appreciate hematology consultation and recommendation, will ask to reevaluate given continued increase in platelets
-Continue antibiotic, cultures pending
-Continue MOISE drain for today
Subjective Data
-
Date of Service: January 13, 2024
Patient seen and examined at chair side, offers no complaints. Reports continued resolution of throat pain and no difficulty swallowing. Tolerating p.o. diet. Denies fever, nausea, chills, abdominal pain, and drainage from bilateral groin sites.
Continues to report vast improvement in left upper extremity weakness.
Objective Data
-
Vital Signs
Temp Pulse Resp BP Pulse Ox
98.5 F 78 16 144/75 95
01/13/24 03:28 01/13/24 03:28 01/13/24 03:28 01/13/24 03:28 01/13/24 03:28
Intake and Output
01/12/24 01/13/24 01/14/24
06:59 06:59 06:59
Intake Total 2340 / 2340 1320 / 1320
Output Total 550 / 550
Balance 2340 / 2340 770 / 770
Intake:
Oral fluids 2339 / 2340 720 / 720
IV fluids (Total) 100 / 100
Normosol 100 / 100
Blood products 250 / 250
Blood Product Amount Infused ( 250 / 250
mL)
Packed Rbc Leukoreduced Unit 250 / 250
[id number]
Output:
Urine, Voided 550 / 550
Other:
Number of approximated SMALL 1
amounts of urine
Number of approximated MODERATE 3 2
amounts of urine
Number of approximated LARGE 3
amounts of urine
Lab Results
01/13/24 05:54
01/13/24 05:54
Calcium 8.7 mg/dl (8.4-10.2) 01/13/24 05:54
Phosphorus 3.3 mg/dl (2.5-4.5) 01/05/24 04:20
Magnesium 1.9 mg/dl (1.6-2.3) 01/08/24 05:00
Total Bilirubin Cancelled 01/10/24 10:37
Direct Bilirubin Cancelled 01/10/24 10:37
AST Cancelled 01/10/24 10:37
ALT Cancelled 01/10/24 10:37
Alkaline Phosphatase Cancelled 01/10/24 10:37
Total Protein Cancelled 01/10/24 10:37
Albumin Cancelled 01/10/24 10:37
Physical Exam
-
Afebrile
AAOx3
Right neck incision clean and intact, currently without drainage, and no evidence of erythema. Scant edema, all surrounding areas soft. MOISE drain with small amount of serosanguineous drainage. Dressing changed, incision line remains approximated.
Abdomen is soft, nondistended, nontender, Incision is clean dry and intact
Groins are flat bilaterally, no evidence of drainage
Palpable femoral pulses bilaterally. Feet are both warm.
--- NOTE | 2024-01-13 08:00 | PHA.VAN.FU ---
Vancomycin Assessment / Plan
- Assessment
Renal Function: Stable
WBC's are: Trending Down
In the past 24 hrs, patient has been: Afebrile
- Assessment - Therapeutic Drug Monitoring
Extrapolated Cmax (mcg/mL): 16.9
Peak level was drawn: Appropriately (drawn ~2H after end of previous infusion)
Extrapolated Cmin (mcg/mL): 8.6
Trough Drawn: Appropriately
Levels were drawn: At steady state (levels drawn after 6th maintenance dsoe)
Calculated AUC (mcg*h/mL): 295
Calculated ke: 0.0618
Calculated half life (H): 11.2
Calculated Vd (L): 82 (~1.3 L/kg)
Calculated Vanc CL (ml/min): 85
- Dosing Plan
Adjust Regimen to: Vanc 1000mg Q12H
New Regimen Predicts: AUC (406), Peak (23.2), Trough (11.8)
- Monitoring Plan
No level(s) ordered at this time: consider repeat levels in next few days
- Follow Up
Pharmacy will continue to follow.
Vancomycin Follow UP
- -
Patient Age: 63
Patient Sex: Male
Vancomycin Day #: 5
Indication: Other
Requesting Provider: Dr. Velázquez
Pertinent Antimicrobial Allergies:
NKDA
Height / Weight:
Height 5 ft 5 in
Actual Weight 62.006 kg
IBW in k.5
Adjusted BW in k.1
Pertinent Past Medical History: PAD
- Vital Signs / Lab Results
Temp Pulse Resp BP Pulse Ox
98.5 F 78 16 144/75 95
01/13/24 03:28 01/13/24 03:28 01/13/24 03:28 01/13/24 03:28 01/13/24 03:28
Lab Results - Hematology
01/11/24 01/12/24 01/13/24
06:30 05:51 05:54
WBC 17.6 H 16.9 H 14.1 H
Lab Results - Chemistry
01/10/24 01/10/24 01/11/24
05:57 10:37 06:30
BUN 11 10
Creatinine 0.7 0.7
Estimated Creat Clear 94 94
Albumin Cancelled Cancelled
01/12/24 01/13/24
05:52 05:54
BUN 9 13
Creatinine 0.7 0.8
Estimated Creat Clear 94 82
Albumin
Microbiology Results
01/12/24 10:30 Gram Stain - Preliminary
Surgical Wound
01/12/24 08:01 Influenza Types A & B (VIVIEN) - Final
Nasal Swab Negative for Influenza A & B, NAAT
Negative results must be combined with clinical observations
and patient history.
Nucleic Acid Amplification test (NAAT)performed on the
[employer] platform.
01/09/24 20:53 Streptococcus Screen (OSWALDO) - Final
Throat/Pharynx No Beta Hemolytic Streptococci Isolated
Streptococcus Rapid Screen - Final
Rapid Strep Screen (Group A) Negative
Therapeutic Drug Monitoring
Vancomycin Peak 14.9 ug/ml (18-26) L 01/12/24 20:49
Vancomycin Trough 8.5 ug/ml (5-20) 01/13/24 05:54
[2024-01-13] MEDS: LOW STRENGTH ASPIRIN 81 MG PO (09:05)
[2024-01-13] MEDS: PLAVIX 75 MG PO (09:05)
[2024-01-13] MEDS: VITAMIN B1 100 MG PO ×2 (09:05→20:09)
[2024-01-13] MEDS: PROTONIX 20 MG PO (09:05)
[2024-01-13] MEDS: MUCINEX 600 MG PO ×2 (09:06→20:09)
[2024-01-13] MEDS: NICODERM TRANSDERMAL 14 MG TRANSDERM (09:06)
[2024-01-13] MEDS: FOLVITE 1 MG PO (09:06)
[2024-01-13] MEDS: MYCOSTATIN ORAL SUSPENSION 5 ML PO ×4 (09:07→22:05)
[2024-01-13] MEDS: VANCOCIN 200 IV ×2 (09:08→17:40)
--- NOTE | 2024-01-13 10:35 | W.PN.ONC ---
Today's Communication / Plan
-
Thrombocytosis unlikely to be related to myeloproliferative disease given the patient acuity without
Likely secondary causes include iron deficiency, inflammatory state and hemolysis
Rule out hemolysis and serum iron studies
Rebound thrombocytosis has been described in some patients after withdrawal of alcohol
Iron studies not available for review
Reviewed operative note for report of potential splenic artery interruption-not seen
Testicular torsion with low grade temp (Tm 1006) represents an inflammatory state, WBC also progressively increasing.
Platelet count still increasing when pt otherwise ready to be D/C'd, will arrange for CBC and have myeloproliferative disease transit mixer driver mutation
Impression
Impression
Peripheral arterial disease s/p aortofemoral bypass
Carotid stenosis complicated by stroke, now s/p R CEA
Thrombocytosis
EtOH, last 12/28
Testicular torsion/ischemia
Low-grade temp
Subjective/Objective
Subjective/Objective
Patient without new complaints.
Vital Signs:
Vital Signs
Temp Pulse Resp BP Pulse Ox
98.7 F 88 16 163/80 99
01/13/24 07:15 01/13/24 07:15 01/13/24 07:15 01/13/24 07:15 01/13/24 07:15
Heart regular
Lungs clear
Abdomen soft
Extremities without pretibial edema
Lab Results:
Laboratory Data
WBC 14.1 10^3/uL (4.8-10.8) H 01/13/24 05:54
Hgb 8.4 g/dL (13.0-18.0) L 01/13/24 05:54
Plt Count 1030 10^3/uL (130-400) H 01/13/24 05:54
PT 14.0 Sec (11.4-14.6) 01/13/24 05:54
INR 1.07 01/13/24 05:54
APTT 34.6 Sec (23.4-35.0) 01/13/24 05:54
eGFR > 60.00 01/13/24 05:54
[2024-01-13 11:27] VITALS: BP 175/86
[2024-01-13 11:54] LABS: Reticulocyte Count 2.1 % (0.4-2.8)
[2024-01-13 13:00] LABS: LDH 267 U/L (120-246)
[2024-01-13 13:03] LABS: Iron 36 ug/dl (49-181)
[2024-01-13 13:09] LABS: Percent Saturation 17 % (20-50); Total Iron Binding Capacity 209 ug/dl (261-462)
[2024-01-13 15:24] VITALS: BP 157/83
--- NOTE | 2024-01-13 15:39 | CM ---
IV/AB, MOISE drain continue today. Anticipate home with outpatient PT. Requested script from Attending via TT.
[2024-01-13] MEDS: DIOVAN 160 MG PO (17:12)
[2024-01-13] MEDS: LIPITOR 20 MG PO (17:13)
[2024-01-13] MEDS: NORVASC 5 MG PO (17:13)
[2024-01-13] MEDS: LOVENOX 40 MG SC (17:13)
[2024-01-13 19:14] VITALS: BP 158/85
[2024-01-13 23:36] VITALS: BP 164/84
[2024-01-14 03:24] VITALS: BP 168/77
[2024-01-14] MEDS: VANCOCIN 200 IV (06:11)
[2024-01-14 06:57] LABS: Hematocrit 25.1 % (39.0-52.0); Hemoglobin 8.4 g/dL (13.0-18.0); Mean Corp Hgb Conc. 33.5 g/dL (33.0-37.0); Mean Corpuscular Hgb 30.2 pg (27.0-31.0); Mean Corpuscular Volume 90.3 fL (80.0-94.0); Mean Platelet Volume 8.9 fL (7.4-10.4); Platelet Count 1127 10^3/uL (130-400); Red Blood Cell Count 2.78 10^6/uL (4.70-6.10); Red Cell Dist. Width 14.5 % (11.5-14.5); White Blood Cell Count 13.3 10^3/uL (4.8-10.8)
[2024-01-14 07:10] VITALS: BP 158/87
[2024-01-14 07:16] LABS: Blood Urea Nitrogen 9 mg/dl (9-20); Calcium 8.9 mg/dl (8.4-10.2); Carbon Dioxide 25 mmol/L (22-30); Chloride 104 mmol/L (98-107); Estimated Creatinine Clearance 94 ml/min; Glucose 100 mg/dl (70-99); Potassium 4.3 mmol/L (3.5-5.1); Sodium 136 mmol/L (135-145); eGFR > 60.00
--- NOTE | 2024-01-14 07:58 | PHA.VAN.FU ---
Vancomycin Assessment / Plan
- Assessment
Renal Function: Stable
WBC's are: Trending Down
In the past 24 hrs, patient has been: Afebrile
Concomitant Antimicrobials: nystatin susp
- Dosing Plan
Continue: vancomycin 1000 mg q12h - dose adjusted 01/13/24 AM
- Monitoring Plan
No level(s) ordered at this time: consider repeat levels in next few days
- Follow Up
Pharmacy will continue to follow.
Vancomycin Follow UP
- -
Patient Age: 63
Patient Sex: Male
Vancomycin Day #: 6
Indication: Other
Requesting Provider: Dr. Velázquez
Pertinent Antimicrobial Allergies:
NKDA
Height / Weight:
Height 5 ft 5 in
Actual Weight 62.006 kg
IBW in k.5
Adjusted BW in k.1
Pertinent Past Medical History: PAD
- Vital Signs / Lab Results
Temp Pulse Resp BP Pulse Ox
98.4 F 79 18 168/77 97
01/14/24 03:24 01/14/24 03:24 01/14/24 03:24 01/14/24 03:24 01/14/24 03:24
Lab Results - Hematology
01/12/24 01/13/24 01/14/24
05:51 05:54 05:50
WBC 16.9 H 14.1 H 13.3 H
Lab Results - Chemistry
01/11/24 01/12/24 01/13/24
06:30 05:52 05:54
BUN 10 9 13
Creatinine 0.7 0.7 0.8
Estimated Creat Clear 94 94 82
01/14/24
05:50
BUN 9
Creatinine 0.7
Estimated Creat Clear 94
Microbiology Results
01/12/24 10:30 Wound Culture - Preliminary
Surgical Wound Gram Stain - Preliminary
01/12/24 10:30 Anaerobic Culture - Preliminary
Surgical Wound Culture pending. Anaerobic cultures are examined after 3
days incubation. Additional information to follow.
01/12/24 08:01 Influenza Types A & B (VIVIEN) - Final
Nasal Swab Negative for Influenza A & B, NAAT
Negative results must be combined with clinical observations
and patient history.
Nucleic Acid Amplification test (NAAT)performed on the
[employer] platform.
Therapeutic Drug Monitoring
Vancomycin Peak 14.9 ug/ml (18-26) L 01/12/24 20:49
Vancomycin Trough 8.5 ug/ml (5-20) 01/13/24 05:54
[2024-01-14] MEDS: MYCOSTATIN ORAL SUSPENSION 5 ML PO ×2 (08:17→14:03)
[2024-01-14] MEDS: PROTONIX 20 MG PO (08:18)
[2024-01-14] MEDS: FOLVITE 1 MG PO (08:18)
[2024-01-14] MEDS: PLAVIX 75 MG PO (08:18)
[2024-01-14] MEDS: VITAMIN B1 100 MG PO (08:18)
[2024-01-14] MEDS: LOW STRENGTH ASPIRIN 81 MG PO (08:18)
[2024-01-14] MEDS: NICODERM TRANSDERMAL 14 MG TRANSDERM (08:19)
[2024-01-14] MEDS: MUCINEX 600 MG PO (08:19)
--- NOTE | 2024-01-14 09:02 | W.PN.VS ---
Addendum entered and electronically signed by Mic Velázquez MD 01/14/24 11:51:
Seen and examined with MERRY Gomez. Agree with findings as noted below. Patient was without specific complaints this morning. He felt well. Right neck incision clean dry and intact. No recurrent hematoma. Drain serosanguineous minimal. Drain
removed by us. Abdomen soft, nondistended, nontender. Incision clean dry and intact. Groins are flat bilaterally with no significant hematoma. Incisions clean dry and intact bilateral groins. 2+ palpable femoral pulses bilaterally. Feet are
warm. Neurologically stable. Plan/as discussed and noted below. Microbiology from cultures so far negative. Likely will discharge today, and will update via phone if any changes in terms of antibiotic coverage. Appreciate hematology evaluation.
Follow-up in the outpatient setting for thrombocytosis. Will see him back in the office in 1 week for staple and suture removals.
Original Note:
Today's Communication / Plan
-
Patient seen and examined at bedside with Dr. Mic Velázquez, below plan reviewed with attending.
Assessment/Plan
-
POD#14 ABF, POD#8 R CEA, POD# 2 Right neck washout
�Continue PT/OT
-Case management following for disposition, current medications are home with PT, will provide prescription
-Appreciate hematology consultation and recommendation, will will have patient follow-up in the outpatient setting
-Will continue dual antiplatelet of 81 mg of aspirin p.o. daily and 75 mg of Plavix p.o. daily, given increased platelets
-Discharge today
Subjective Data
-
Date of Service: January 14, 2024
Patient seen and examined at bedside, offers no complaints. Denies nausea, vomiting, fever, and chills. Reports tolerating p.o. diet. Continues to report vast improvement in left arm weakness.
Objective Data
-
Vital Signs
Temp Pulse Resp BP Pulse Ox
99.0 F 88 16 158/87 99
01/14/24 07:10 01/14/24 07:10 01/14/24 07:10 01/14/24 07:10 01/14/24 07:10
Intake and Output
01/13/24 01/14/24 01/15/24
06:59 06:59 06:59
Intake Total 1320 / 1320 1800 / 1800
Output Total 550 / 550 5 / 5
Balance 770 / 770 1795 / 1795
Intake:
Oral fluids 720 / 720 1800 / 1800
IV fluids (Total) 100 / 100
Normosol 100 / 100
Blood products 250 / 250
Blood Product Amount Infused ( 250 / 250
mL)
Packed Rbc Leukoreduced Unit 250 / 250
[id number]
Output:
Drain Output (Total) 5 / 5
Murray-Parrish 5 /
Urine, Voided 550 / 550
Other:
Number of approximated MODERATE 2 2
amounts of urine
Lab Results
01/14/24 05:50
01/14/24 05:50
Calcium 8.9 mg/dl (8.4-10.2) 01/14/24 05:50
Phosphorus 3.3 mg/dl (2.5-4.5) 01/05/24 04:20
Magnesium 1.9 mg/dl (1.6-2.3) 01/08/24 05:00
Total Bilirubin Cancelled 01/10/24 10:37
Direct Bilirubin Cancelled 01/10/24 10:37
AST Cancelled 01/10/24 10:37
ALT Cancelled 01/10/24 10:37
Alkaline Phosphatase Cancelled 01/10/24 10:37
Total Protein Cancelled 01/10/24 10:37
Albumin Cancelled 01/10/24 10:37
Physical Exam
-
Afebrile
AAOx3
Right neck incision clean and intact, currently without drainage, and no evidence of erythema. Scant edema, all surrounding areas soft. MOISE drain with small amount of serosanguineous drainage, removed by this provider.
Abdomen is soft, nondistended, nontender, Incision is clean dry and intact
Groins are flat bilaterally, no evidence of drainage
Feet are both warm.
[2024-01-14 11:30] VITALS: BP 165/84
--- NOTE | 2024-01-14 14:38 | CON.ID ---
Consultation
-
Date/Time Consultation Requested: January 14, 2024 1154
Date/Time Consultation Performed: January 14, 2024 1440
Requesting Provider: WERNER Celis
Performing Provider: Dr. Angelica Hairston
Reason for Consultation: Right neck washout + cx
Chief Complaint / Past History
History of Present Illness
63-year-old male smoker with peripheral artery disease who was electively admitted to the hospital on December 29 and underwent open aorto-bifemoral bypass, right femoral endarterectomy with bovine pericardial patch angioplasty. Postop, patient had
fever and elevated white count. Also with change in mental status deemed from alcohol withdrawal. On January 02 a stroke alert was called due to left arm weakness. Brain MRI showed acute/subacute CVA. CT angiogram of the head showed severe right
proximal cervical internal carotid artery near occlusive plaque. Patient noted to have scrotal swelling on the right. Ultrasound showed right testicular torsion. Urologist suspected ischemic compromise rather than testicular torsion, no surgical
intervention. January 04, he underwent right carotid endarterectomy with bovine pericardial patch angioplasty. January 09, patient spiked temperature one 101.5, worsening leukocytosis. January 10, patient noted to have pulsating hematoma over the right
neck. CT angiogram of the neck showed only moderate right maxillary sinusitis. January 11 he was taken to the OR status post right neck exploration with evacuation of organized hematoma/fibrinous slough, excision of submandibular lymph node; no
purulence encountered. OR Gram stain showed gram-negative rods, culture growing coagulase-negative staph. Patient maintained on IV vancomycin day #6. Patient to be discharged today and therefore Infectious Disease consulted for antibiotic
management. Today patient reports he feels well. He would really like to go home. is at bedside and would like to take him home. He denies any neck pain. No chills or sweats. No diarrhea. No urinary difficulties.
Past History
Additional Past Medical History:
Hypertension
Emphysema
Severe PAD
Additional Past Surgical History:
Cecetomy
salivary gland surgery
Allergy History:
No Known Allergies Allergy (Verified 12/30/23 06:30)
Medications Reviewed: Yes
Current Antibiotics:
Vancomycin day 6
Social History
Tobacco: Smoker
Alcohol: Daily
Drug: None
Personal:
Living: With Family
Family History
Family History: Not Pertinent
Review of Systems
Review of Systems
General: Negative Fever or Chills
HEENT: Negative Sinus Problems or Headache
Cardiovascular: Negative Chest Pain
Respiratory: Negative Dyspnea or Cough
Gasteroenterology: Negative Nausea or Vomiting
Genital / Urological: Negative Dysuria or Flank Pain
All systems: All other systems were reviewed and were negative
Vital Signs
Temp Pulse Resp BP Pulse Ox
98.3 F 96 16 165/84 98
01/14/24 11:30 01/14/24 11:30 01/14/24 11:30 01/14/24 11:30 01/14/24 11:30
Physical Exam
Physical Exam
Constitutional: No Acute Distress and Comfortable
Cardiovascular: Regular Rate and S1/S2
Pulmonary: Clear
Gastrointestinal: Soft, Non Tender, Non Distended and Normal Bowel Sounds
Genito-Urinary: Negative CVA Tenderness
Wound: Other (right neck incision closed, no erythema, distal dressing dry)
Neurological: AO x 3
Lab / Diagnostic Study Results
01/14/24 05:50
01/14/24 05:50
Abs Immat Gran (auto) 0.0 10^3/uL (0-0.05) 12/27/23 09:27
Absolute Neuts (auto) 5.8 10^3/uL (1.4-6.5) 12/27/23 09:27
Absolute Lymphs (auto) 2.3 10^3/uL (1.2-3.4) 12/27/23 09:27
Absolute Monos (auto) 0.5 10^3/uL (0.1-0.6) 12/27/23 09:27
Absolute Basos (auto) 0.1 10^3/uL (0-0.2) 12/27/23 09:27
Immature Gran % 0.3 % (0-0.5) 12/27/23 09:27
Neutrophils % 65.2 % (42.2-75.2) 12/27/23 09:
Lymphocytes % 25.4 % (20.5-51.1) 12/27/23 09:
Monocytes % 5.4 % (1.7-9.3) 12/27/23 09:
Eosinophils % 3.1 % (0-6) 12/27/23 09:
Basophils % 0.6 % (0-2) 12/27/23 09:27
ESR Cancelled 01/10/24 10:37
PT 14.0 Sec (11.4-14.6) 01/13/24 05:54
INR 1.07 01/13/24 05:54
Lactic Acid 1.1 mmol/L (0.7-2.0) 01/02/24 08:13
Ur Squamous Epith Cells 3-5 /LPF (Few) 01/11/24 11:28
Microbiology Results
Micro:
01/12/24 10:30 Wound Culture - Preliminary
Surgical Wound Coagulase neg. staphylococcus
Gram Stain - Preliminary
01/12/24 10:30 Anaerobic Culture - Preliminary
Surgical Wound Culture pending. Anaerobic cultures are examined after 3
days incubation. Additional information to follow.
01/12/24 08:01 Influenza Types A & B (VIVIEN) - Final
Nasal Swab Negative for Influenza A & B, NAAT
Negative results must be combined with clinical observations
and patient history.
Nucleic Acid Amplification test (NAAT)performed on the
[employer] platform.
01/09/24 20:53 Streptococcus Screen (OSWALDO) - Final
Throat/Pharynx No Beta Hemolytic Streptococci Isolated
Streptococcus Rapid Screen - Final
Rapid Strep Screen (Group A) Negative
12/27/23 09:27 MRSA Screen - Final
Nose Staph aureus MRSA
01/11/24 CXR: No active cardiopulmonary disease.
01/03/24 Neck CTA: Air surrounding the right common carotid artery, consistent with immediate postoperative state. Patent carotid bulb and right ICA postoperative.
01/03/24 Brain MRI: Scattered foci of restricted diffusion on the right in the parietal occipital lobes, consistent with acute/subacute infarcts, likely embolic, nonhemorrhagic
Assessment / Plan
# Acute CVA s/p R CEA with post-op hematoma
01/14/24 s/p evacuation of hematoma, no pus
OR gram stain GNR, CX CoNS -> cx not finalized
Possible contamination over infected hematoma.
Informed pt and , since culture data is not finalized, I can only recommend empiric abx.
If dc today, transition to doxycycline 100mg po bid and levofloxacin 750 mg po daily x 10 days.
Discussed potentials side effects of both antibiotics.
# Leukocytosis trending down
# Fever resolved
# Ischemic right testicle
# s/p right aorto-bifemoral bypass (12/30/23)
# s/p alcohol withdrawal
[2024-01-14 15:05] VITALS: BP 165/88
--- NOTE | 2024-01-14 15:45 | W.PN.ONC2 ---
Today's Communication / Plan
-
- several reasons for reactive thrombocytosis, no alarming symptoms.
- ok for discharge with repeat CBC in 1 week and heme follow up outpt
Impression
Impression
Peripheral arterial disease s/p aortofemoral bypass
Carotid stenosis complicated by stroke, now s/p R CEA
Thrombocytosis
EtOH, last 12/28
Testicular torsion/ischemia
Low-grade temp
Plan
Plan
Doubt underlying myeloproliferative disorder with CBC normal prior to and throughout much of admission. Also, spleen size normal mitigates against MPD.
Differential for secondary thrombocytosis includes iron deficiency, inflammatory state, post-splenectomy, hemolysis. Rebound thrombocytosis has been described in some patients after withdrawal of alcohol.
Ferritin normal with IS 17%. Despite normal ferritin I suspect element of RIGO may be present with active infection would expect ferritinemia.
Testicular torsion with low grade temp (Tm 1006) represents an inflammatory state.
Timing would be right for rebound thrombocytopenia with last alcohol approx 12/28 and platelet increase beginning 01/06.
Pt does not need to remain in the hospital for elevated platelet count.
With platelet count still increasing however pt otherwise ready to be D/C'd, recommend routine CBC in 1 week and will arrange outpt follow up
Subjective/Objective
Chief Complaint
thrombocytosis
Subjective
platelets continue to rise, up to 1,127,000 today. He notes today is best he has felt. He has unchanged bruising, no new bleeding symptoms. denies PEREZ, itching, chest pain, fevers.
Vital Signs:
Vital Signs
Temp Pulse Resp BP Pulse Ox
98.3 F 96 16 165/84 98
01/14/24 11:30 01/14/24 11:30 01/14/24 11:30 01/14/24 11:30 01/14/24 11:30
Lab Results:
Laboratory Data
WBC 13.3 10^3/uL (4.8-10.8) H 01/14/24 05:50
Hgb 8.4 g/dL (13.0-18.0) L 01/14/24 05:50
Plt Count 1127 10^3/uL (130-400) H 01/14/24 05:50
PT 14.0 Sec (11.4-14.6) 01/13/24 05:54
INR 1.07 01/13/24 05:54
APTT 34.6 Sec (23.4-35.0) 01/13/24 05:54
eGFR > 60.00 01/14/24 05:50
Physical Exam
HEENT: Other (right neck incision without erythema or drainage. ); No Jaundice
Cardiology: Normal Sinus Rhythm
Pulmonary: Clear
Extremities: No Edema
Neuro: Non Focal
Review of Systems
Review of Systems
Constitutional: Denies Fever
Respiratory: Denies Dyspnea
Cardiovascular: Denies Chest Pain
Neurological: Denies Headache
Hem/Lymphatic: Reports Easy Bruising
--- NOTE | 2024-01-14 16:40 | CM ---
Patient has been medically cleared for discharge to home with outpatient PT/OT services. Script has been given to patient. will transport home.
--- NOTE | 2024-01-14 16:43 | W.[place]-PDMP ---
[place]-PD[place]
-
Checked the [place]- Prescription Drug Monitoring Program website, no red flags identified; safe to proceed with prescription.
--- NOTE | 2024-01-14 17:04 | W.[place]-PDMP ---
[place]-PD[place]
-
Checked the [place]- Prescription Drug Monitoring Program website, no red flags identified; safe to proceed with prescription.
--- NOTE | 2024-01-14 17:04 | W.DS.TRANS ---
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
-
Discharge Instructions:
Sleep Apnea Risk Intermediate
Discharge Diagnosis/Procedures Open [id number] bypass and femoral
endarterectomy, stroke, right carotid
endarterectomy
Diet As tolerated
Activity No strenuous activity,As tolerated
Driving Restrictions Not until seen by your Dr
Bathing Restrictions OK to Shower
Blood Work CBC in one week (please attempt to obtain prior
to your vascular surgery appointment)
Wound Care You can leave abdomen surgical tabatha open to
air, bilateral groin dressings covered with
Exofin glue please also leave open to air, right
neck surgical sutures can be left open to air,
you can cover MOISE removal drain site with gauze
if drainage occurs, change daily or if soiled,
if no drainage present you may also leave this
open to air.
Instructions: Sleep apnea in adults
Stand-Alone Forms: DC Instr - Vascular OR
Changes to Home Medications: Yes
Discharge Medications:
DC Medications w/original date entered in [facility]
aspirin 81 mg capsule 81 mg PO QPM Blood Clot Prevention/Tx 12/22/23
atorvastatin 20 mg tablet 20 mg PO QPM High Cholesterol 12/22/23
valsartan 160 mg tablet 160 mg PO QPM Blood Pressure 12/22/23
amlodipine 5 mg tablet 5 mg PO QPM Blood Pressure 12/30/23
pregabalin 150 mg capsule (Lyrica) 150 mg PO DAILYPRN PRN pain 12/30/23
sildenafil 100 mg tablet (Viagra) 100 mg PO DAILY PRN as needed 12/30/23
clopidogrel 75 mg tablet 75 mg PO DAILY #30 tabs 01/14/24
doxycycline hyclate 100 mg capsule 100 mg PO Q12 10 days #20 caps 01/14/24
levofloxacin 750 mg tablet 750 mg PO DAILY 10 days #10 tabs 01/14/24
nicotine 7 mg/24 hr daily transdermal patch 7 mg transdermal DAILY #30 ea 01/14/24
oxycodone 5 mg tablet 5 mg PO Q4H PRN moderate pain #10 tabs 01/14/24
pantoprazole 20 mg tablet,delayed release 20 mg PO DAILY #30 tabs 01/14/24
Home Medication Changes
Added:
clopidogrel 75 mg tablet 75 mg PO DAILY #30 tabs 01/14/24
doxycycline hyclate 100 mg capsule 100 mg PO Q12 10 days #20 caps 01/14/24
levofloxacin 750 mg tablet 750 mg PO DAILY 10 days #10 tabs 01/14/24
nicotine 7 mg/24 hr daily transdermal patch 7 mg transdermal DAILY #30 ea 01/14/24
oxycodone 5 mg tablet 5 mg PO Q4H PRN moderate pain #10 tabs 01/14/24
pantoprazole 20 mg tablet,delayed release 20 mg PO DAILY #30 tabs 01/14/24
Pending Results: Yes
== END 2024-01-14 17:33 | disposition home or self-care (01) | DRG 270 ==
LOC: 2 NORTH 06:06
PROVIDERS: Internal Medicine Hematology & Oncology; Internal Medicine Pulmonary Disease; Nurse Practitioner; Nurse Practitioner Acute Care; Nurse Practitioner Primary Care; Student in an Organized Health Care Education/Training Program; ADMITTING PHYSICIAN Surgery Vascular Surgery; CONSULT PHYSICIAN Internal Medicine Infectious Disease; CONSULT PHYSICIAN Specialist; FAMILY PHYSICIAN Internal Medicine; OTHER PHYSICIAN Internal Medicine Critical Care Medicine; OTHER PHYSICIAN Internal Medicine Hematology & Oncology; OTHER PHYSICIAN Physical Medicine & Rehabilitation; OTHER PHYSICIAN Psychiatry & Neurology Psychiatry; OTHER PHYSICIAN Student in an Organized Health Care Education/Training Program
PROC: 04UK0KZ Supplement Right Femoral Artery with Nonautologous Tissue Substitute, Open Approach (ICD-10-PCS; 2023-12-30)
PROC: 04CK0ZZ Extirpation of Matter from Right Femoral Artery, Open Approach (ICD-10-PCS; 2023-12-30)
PROC: 04100JK Bypass Abdominal Aorta to Bilateral Femoral Arteries with Synthetic Substitute, Open Approach (ICD-10-PCS; 2023-12-30)
PROC: 30233N1 Transfusion of Nonautologous Red Blood Cells into Peripheral Vein, Percutaneous Approach (ICD-10-PCS; 2024-01-03)
PROC: 03UH0KZ Supplement Right Common Carotid Artery with Nonautologous Tissue Substitute, Open Approach (ICD-10-PCS; 2024-01-05)
PROC: 03CK0ZZ Extirpation of Matter from Right Internal Carotid Artery, Open Approach (ICD-10-PCS; 2024-01-05)
PROC: 03CH0ZZ Extirpation of Matter from Right Common Carotid Artery, Open Approach (ICD-10-PCS; 2024-01-05)
PROC: 03UK0KZ Supplement Right Internal Carotid Artery with Nonautologous Tissue Substitute, Open Approach (ICD-10-PCS; 2024-01-05)
PROC: 0JC40ZZ Extirpation of Matter from Right Neck Subcutaneous Tissue and Fascia, Open Approach (ICD-10-PCS; 2024-01-12)
PROC: 0JB40ZZ Excision of Right Neck Subcutaneous Tissue and Fascia, Open Approach (ICD-10-PCS; 2024-01-12)
PROC: 07B10ZZ Excision of Right Neck Lymphatic, Open Approach (ICD-10-PCS; 2024-01-12)
DX: I70.223 Atherosclerosis of native arteries of extremities with rest pain, bilateral legs (principal); I63.131 Cerebral infarction due to embolism of right carotid artery; D62 Acute posthemorrhagic anemia; R44.3 Hallucinations, unspecified; N44.00 Torsion of testis, unspecified; F10.131 Alcohol abuse with withdrawal delirium; G81.94 Hemiplegia, unspecified affecting left nondominant side; I97.638 Postprocedural hematoma of a circulatory system organ or structure following other circulatory system procedure; B37.0 Candidal stomatitis; I10 Essential (primary) hypertension; F17.210 Nicotine dependence, cigarettes, uncomplicated; J43.9 Emphysema, unspecified; N40.0 Benign prostatic hyperplasia without lower urinary tract symptoms; B95.62 Methicillin resistant Staphylococcus aureus infection as the cause of diseases classified elsewhere; R41.0 Disorientation, unspecified; R45.1 Restlessness and agitation; D75.838 Other thrombocytosis; E87.6 Hypokalemia; Y83.8 Other surgical procedures as the cause of abnormal reaction of the patient, or of later complication, without mention of misadventure at the time of the procedure; Y92.239 Unspecified place in hospital as the place of occurrence of the external cause; S14.129S Central cord syndrome at unspecified level of cervical spinal cord, sequela; X58.XXXS Exposure to other specified factors, sequela; Z79.82 Long term (current) use of aspirin; Z81.8 Family history of other mental and behavioral disorders; Z81.1 Family history of alcohol abuse and dependence; Z87.828 Personal history of other (healed) physical injury and trauma; Z11.52 Encounter for screening for COVID-19; Z78.1 Physical restraint status
CPT/HCPCS: 88304; 88305; 88311; 35301; 35646; 36415; 70450; 70496; 70498; 70551; 71045; 71046; 72125; 76870; 80048; 80061; 80202; 81003; 81015; 82607; 82728; 82746; 82962; 83010; 83036; 83540; 83550; 83605; 83615; 83735; 84100; 84443; 85014; 85018; 85025; 85027; 85045; 85610; 85652; 85730; 86850; 86880; 86900; 86901; 86920; 87070; 87075; 87205; 87502; 87811; 87880; 92523; 92526; 92610; 93005; 93882; 93976; 94640; 97112; 97116; 97129; 97163; 97164; 97167; 97168; 97530; 97535; J3480; P9016; P9045; Q9967

== ENCOUNTER → 2024-01-21 08:53 | Outpatient (REF) | payer OTHER, SELFPAY ==
[2024-01-21 10:22] LABS: % Basophils 0.8 % (0-2); % Eosinophils 1.7 % (0-6); % Immature Granulocytes 0.5 % (0-0.5); % Lymphocytes 16.3 % (20.5-51.1); % Monocytes 5.3 % (1.7-9.3); % Neutrophils 75.4 % (42.2-75.2); Absolute Basophils 0.1 10^3/uL (0-0.2); Absolute Eosinophils 0.2 10^3/uL (0-0.7); Absolute Immature Granulocytes 0.1 10^3/uL (0-0.05); Absolute Lymphocytes 1.9 10^3/uL (1.2-3.4); Absolute Monocytes 0.6 10^3/uL (0.1-0.6); Absolute Neutrophils 8.6 10^3/uL (1.4-6.5); Hematocrit 30.7 % (39.0-52.0); Hemoglobin 9.7 g/dL (13.0-18.0); Mean Corp Hgb Conc. 31.6 g/dL (33.0-37.0); Mean Corpuscular Hgb 29.2 pg (27.0-31.0); Mean Corpuscular Volume 92.5 fL (80.0-94.0); Mean Platelet Volume 8.9 fL (7.4-10.4); Nucleated Red Blood Cells % 0 % (-); Platelet Count 952 10^3/uL (130-400); Red Blood Cell Count 3.32 10^6/uL (4.70-6.10); Red Cell Dist. Width 14.2 % (11.5-14.5); White Blood Cell Count 11.4 10^3/uL (4.8-10.8)
== END ==
LOC: REG 08:53
PROVIDERS: ATTENDING PHYSICIAN Nurse Practitioner; FAMILY PHYSICIAN Surgery Vascular Surgery; REFERRING PHYSICIAN Internal Medicine Hematology & Oncology
DX: I73.9 Peripheral vascular disease, unspecified (principal)
CPT/HCPCS: 36415; 85025

== ENCOUNTER → 2024-02-29 08:57 | Outpatient (REF) | payer OTHER, SELFPAY | LOC: RAD 08:57 | PROVIDERS: ATTENDING PHYSICIAN Physician Assistant; FAMILY PHYSICIAN Internal Medicine | DX: I65.23 Occlusion and stenosis of bilateral carotid arteries (principal); I73.9 Peripheral vascular disease, unspecified | CPT/HCPCS: 93880; 93922; 93925 ==

== ENCOUNTER → 2024-09-12 07:40 | Outpatient (REF) | payer OTHER, SELFPAY | LOC: RAD 07:40 | PROVIDERS: ATTENDING PHYSICIAN Surgery Vascular Surgery; FAMILY PHYSICIAN Internal Medicine | DX: I73.9 Peripheral vascular disease, unspecified (principal); I65.23 Occlusion and stenosis of bilateral carotid arteries | CPT/HCPCS: 93880; 93922; 93925; 93978 ==

== ENCOUNTER → 2024-09-23 07:17 | Outpatient (REF) | payer OTHER, SELFPAY ==
[2024-09-23 09:06] LABS: Blood Urea Nitrogen 14 mg/dl (9-20); Calcium 9.7 mg/dl (8.4-10.2); Carbon Dioxide 28 mmol/L (22-30); Chloride 100 mmol/L (98-107); Glucose 103 mg/dl (70-99); Potassium 5.2 mmol/L (3.5-5.1); Sodium 139 mmol/L (135-145); eGFR > 60.00
== END ==
LOC: REG 07:17
PROVIDERS: ATTENDING PHYSICIAN Surgery Vascular Surgery; FAMILY PHYSICIAN Internal Medicine
DX: I73.9 Peripheral vascular disease, unspecified (principal); Z01.818 Encounter for other preprocedural examination
CPT/HCPCS: 36415; 80048

== ENCOUNTER → 2024-09-28 07:06 | Outpatient (REF) | payer OTHER, SELFPAY | LOC: RAD 07:06 | PROVIDERS: ATTENDING PHYSICIAN Surgery Vascular Surgery; FAMILY PHYSICIAN Internal Medicine | DX: I73.9 Peripheral vascular disease, unspecified (principal); Z01.818 Encounter for other preprocedural examination | CPT/HCPCS: 75635; Q9967 ==

== ENCOUNTER → 2025-03-13 07:34 | Outpatient (REF) | payer OTHER, SELFPAY | LOC: RAD 07:34 | PROVIDERS: ATTENDING PHYSICIAN Internal Medicine; REFERRING PHYSICIAN Surgery Vascular Surgery | DX: I65.23 Occlusion and stenosis of bilateral carotid arteries (principal); I73.9 Peripheral vascular disease, unspecified; Z01.818 Encounter for other preprocedural examination; R91.1 Solitary pulmonary nodule | CPT/HCPCS: 71250; 93880; 93922; 93925 ==